=== PATIENT | female | born 1940 | race Caucasian/White ===

== ENCOUNTER 2022-07-03 19:20 | Inpatient (IN) | payer MEDICARE, SELFPAY ==
[2022-07-03 20:27] VITALS: BMI 28.8
[2022-07-03 20:53] VITALS: BP 152/68; PULSE 68; RESP 16; TEMP 36.6; O2SAT 96
[2022-07-03 22:03] VITALS: PULSE 69
[2022-07-03] MEDS: hydrALAZINE 25 MG Tablet PO (22:03)
[2022-07-03] MEDS: Metoprolol Tartrate 50 MG Tablet PO (22:03)
[2022-07-03] MEDS: Acetaminophen 500 MG Tablet 1000 MG PO (22:04)
[2022-07-03] MEDS: Senna/Docusate Sodium 1 Tablet 2 TABLET PO (22:04)
[2022-07-03] MEDS: Menthol/Lanolin/Calamine/Znox 113 GM Tube 1 APPLIC TOPICAL (22:17)
[2022-07-03 22:30] LABS: Bedside Glucose 236 mg/dL (74-106)
[2022-07-03 23:18] VITALS: PULSE 68; RESP 16; O2SAT 99
[2022-07-04] VITALS (8 sets, daily range): BP systolic 148–154; BP diastolic 49–58; PULSE 56–64; RESP 15; TEMP 36.1–36.8; O2SAT 90–98
[2022-07-04 05:59] LABS: ALB/GLOB Ratio 0.5 RATIO (0.9-2.4); AST(SGOT) 19 U/L (15-37); Alanine Aminotransfer ALT/SGPT 15 U/L (13-56); Albumin, Serum 1.9 g/dL (3.2-5.0); Alkaline Phosphatase 104 U/L (45-117); Anion Gap 8 (5-15); BUN 27 mg/dL (7-18); BUN/Creat Ratio 29.8 RATIO (10-20); Calcium,Total 8.8 mg/dL (8.5-10.1); Chloride 101 mmol/L (98-107); Creatinine, Serum 0.91 mg/dL (0.55-1.02); EST Glomerular Filtration Rate 63 mL/min (>60); Est Glom Filt Rate - Afr Amer 77 mL/min (>60); Estimated Creatinine Clearance 45.39 ml/min; Globulin 4.1 g/dL (2.2-4.2); Glucose 210 mg/dL (74-106); Magnesium 2.4 mg/dL (1.6-2.6); Phosphorus 3.3 mg/dL (2.5-4.9); Potassium 3.9 mmol/L (3.5-5.1); Sodium Level 139 mmol/L (136-145)
[2022-07-04] MEDS: Acetaminophen 500 MG Tablet 1000 MG PO ×3 (06:08→21:26)
[2022-07-04] MEDS: Levothyroxine 100 MCG Tablet PO (06:08)
[2022-07-04] MEDS: hydrALAZINE 25 MG Tablet PO ×3 (06:09→21:28)
[2022-07-04] MEDS: Metoprolol Tartrate 50 MG Tablet PO ×3 (06:09→21:28)
[2022-07-04] MEDS: Carbidopa/Levodopa 25/100 Tablet PO ×3 (06:10→17:03)
[2022-07-04 06:35] LABS: Bedside Glucose 211 mg/dL (74-106)
[2022-07-04] MEDS: Memantine Hydrochloride 5 MG Tablet PO (08:22)
[2022-07-04] MEDS: Senna/Docusate Sodium 1 Tablet 2 TABLET PO (08:22)
[2022-07-04] MEDS: NYSTATIN 500,000 UNIT/5 ML UDC 500000 UNIT PO ×4 (08:23→21:27)
[2022-07-04] MEDS: amLODIPine 5 MG Tablet PO (08:23)
[2022-07-04] MEDS: LINAGLIPTIN 5 MG TABLET PO (08:23)
[2022-07-04] MEDS: Menthol/Lanolin/Calamine/Znox 113 GM Tube 1 APPLIC TOPICAL ×2 (08:23→21:28)
[2022-07-04] MEDS: Calcium Carb/Vitamin D 1 TABLET Tablet 2 TABLET PO ×2 (08:23→17:03)
[2022-07-04] MEDS: Cholecalciferol (VIT D3) 25 MCG TABLET (1,000 UNITS) PO (08:23)
[2022-07-04] MEDS: Losartan Potassium 50 MG Tablet PO (08:23)
[2022-07-04 11:30] LABS: Bedside Glucose 326 mg/dL (74-106)
--- NOTE | 2022-07-04 12:21 | NURSING ---
1100-pt awoke for med. when asked if needed to use bathroom pt said yes. up to bsc x2 assist. pt incont of urine. another med soft stool to commode but did not void. back to chair and bladder scan done for <200. therapy in and standing on lt side of pt by window and talking with but pt with gaze turned to rt side. does not turn toward therapist until directed. down to therapy room for activity
--- NOTE | 2022-07-04 13:23 | HP.PCM_ITS ---
[facility] Date of Admission: 07/03/22 Date of Service: 07/04/22 Chief Complaint: Debility due to acute on chronic SDH requiring craniotomy on 06/15/[address] Lucila Hill at [facility] to evacuate the hematoma. [facility] Narrative NADEGE HINDS, is a 81 YO F with a PMH of PD, DM, dementia, HTN, hypothyroidism, chronic subdural hematoma, osteoporosis (she is on Fosamax 70 mg weekly) and recent COVID pneumonia (April 2022) who presented to [facility] on 06/24/22 from [facility] with complaint of increasing difficulty with ambulation and progressive left-sided weakness. CAT scan of the head showed an increase in the size of the subdural hematoma with an 8 mm midline shift. She was transported to [facility] for neurosurgical evaluation. She was taken for craniotomy on 06/25 to evacuate the hematoma. Post operatively she had PAF. She was placed on Metoprolol for rate control. She was diagnosed with BL unsta geable decubitus ulcers of both heels and moderate Malnutrition while at [facility]. She was seen by ST and is on a pureed diet with nectar thick liquids for dysphagia. PT/OT recommended acute rehab following DC from [facility]. She was transferred to the acute inpt rehab unit at [facility] on 07/03/22 for 3 hours of therapy daily to restore function at or near her level prior to the craniotomy. HGB at [facility] was 8.7. Drugs discontinued at [facility] were metoprolol succinate 25 mg daily, Nuplazid 34 mg daily, Seroquel 25 mg, Jardiance and Effexor Exar 150 mg daily. she lives with her dtr and has help available per the notes from . All paperwork sent with the patient from [facility] was personally reviewed. All lab from this AM was personally reviewed. The BUN is elevated at 27 and the creatinine is 0.91. Apparently at [facility] the creatinine was 0.68 from review of the records. Fasting blood sugar today was 210. The blood sugar at lunch was 326. She was transferred to us on No insulin and only Januvia for blood sugar control. I reviewed the endocrinology consult from [facility] a nd the disposal man recommended glargine once daily with mealtime insulin scheduled and a sliding scale. LFTs are unremarkable. Serum albumin is markedly decreased at 1.9. Medication list was reviewed. She is afebrile. Heart rate is in the 50s and 60s. Systolic blood pressure is mildly elevated in the 150s but the diastolic is within goal. Is maintaining appropriate oxygen saturation on room air. She ate 75 to 100% of her breakfast today. I got the opportunity to talk with her son and dtr-in-law whom she now lives with. She was until recently living with her dtr Ayala in [place]. Ayala has mental/emotional problems and was not taking good care of her mother. She apparently had many falls and Ayala would often sleep most of the day and not feed her mother. She never left the house and family was not allowed to visit. She had a marked change in her mental status and behavior in the past 2 weeks. she became incontinent and this is new for her. She would often start off into space. She was not using her L arm. Cognition declined. [facility] Medical History Dementia Diabetes mellitus type 2, insulin dependent Hypertension Hypothyroidism Parkinson's disease Allergy/AdvReac Type Severity Reaction Status Date / Time No Known Allergies Allergy Verified 07/03/22 20:54 Surgical History History of appendectomy History of right cataract extraction S/P hysterectomy Status post craniotomy Social History (Updated 07/04/22 @ 14:[address] 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 Smoking Status: Never smoker alcohol intake: never substance use type: does not use ROS ROS Narrative History is limited due to dementia. She was oriented to self and could tell me that she was 81. She also told me it was June and this is 2021. She knows she is in a hospital but, she does not know which hospital. She told me she fell down the steps and then had to have surgery on her head. She tells me that she loses her balance easily and that she ambulates with a walker. She has had some falls but, can not tell me how often she falls. She also told me that she has 5 children and they all live at home with her. She tells me that she lives with her dtr Ayala at another time. Constitutional Constitutional: Reports fatigue; Denies anorexia or headache(s) Eyes Eyes: Denies blurry vision or eye pain ENT HEENT: Denies abnormal hearing, dysphagia or sore throat Cardiovascular Cardiovascular: Denies chest pain, dyspnea on exertion, edema, palpitations or paroxysmal nocturnal dyspnea Respiratory/Chest Respiratory/Chest: Denies cough, shortness of breath at rest or wheezing Gastrointestinal Gastrointestinal: Denies abdominal pain, constipation, diarrhea, dyspepsia, nausea or vomiting Genitourinary Genitourinary: Reports other Details: She told me that she wears Depends at home but, also says she has no urinary or fecal incontinence. I asked why she wears Depends and she told me in case I have an accident. She had a PurWick catheter while at [facility]. ; Denies dysuria Musculoskeletal Musculoskeletal: Reports difficulty walking and tremors; Denies joint pain or neck pain Neurologic Neurologic: Reports abnormal gait and confusion; Denies headache(s) or seizures Psychiatric Psychiatric: Denies anxiety or depression Endocrine Endocrinology: Denies change in body appearance Vital Signs Vital Signs Vital Signs: 07/03/22 20:53 07/03/22 22:03 07/03/22 22:03 Temperature 97.8 F Temperature Source Temporal Pulse Rate 68 69 69 Respiratory Rate 16 Respiratory Effort Respiratory Depth Respiratory Pattern Blood Pressure 152/68 H Blood Pressure Mean 96 Blood Pressure Source Monitor Blood Pressure Position Semi-Fowlers Blood Pressure Location Right Arm Pulse Ox 96 Oxygen Delivery Method Room Air 07/03/22 23:18 07/04/22 06:09 07/04/22 06:09 Temperature Temperature Source Pulse Rate 68 56 L 56 L Respiratory Rate 16 Respiratory Effort Normal Non-Labored Respiratory Depth Normal Respiratory Pattern Normal Blood Pressure 154/58 H Blood Pressure Mean Blood Pressure Source Blood Pressure Position Blood Pressure Location Pulse Ox Oxygen Delivery Method Room Air 07/04/22 07:41 07/04/22 09:37 Temperature 97.0 F L Temperature Source Oral Pulse Rate 56 L Respiratory Rate 15 Respiratory Effort Normal Non-Labored Respiratory Depth Normal Respiratory Pattern Normal Blood Pressure 154/58 H Blood Pressure Mean 90 Blood Pressure Source Monitor Blood Pressure Position Semi-Fowlers Blood Pressure Location Right Arm Pulse Ox 94 Oxygen Delivery Method Room Air Room Air Weight Weight: 179 lb 0.246 oz Body Mass Index (BMI) 28.8 Physical Exam Narrative She was sleeping when I entered the room but easily aroused when I called her name. Const alert and no apparent distress Constitutional Narrative: She did not appear to be in any distress. She was lying on her R side in the bed. General Appearance: cooperative and well developed HEENT normocephalic HEENT Narrative: She has an incision from the craniotomy and it is intact with no dehiscence, no erythema and no DC. VERY dry MM Head and Scalp: other Other Details: She has swelling of both eyes and the periorbital area BL. The pupils are both reactive to light. The R pupil is deformed due to cataract extraction. Nose: no nasal discharge Mouth: dry mucous membranes and No malodorous breath Eyes EOMs intact bilaterally, conjunctivae normal and no scleral icterus Neck supple and No nodes General: normal visual inspection and trachea midline Chest Chest: symmetrical chest wall rise Cardio regular rhythm, S1 normal heart sound, S2 normal heart sound, no murmurs, no rub and no gallops Cardio Narrative: She is bradycardic GI normal to inspection, nondistended, normoactive bowel sounds, soft to palpation and non-tender GI Narrative: No guarding with palpation Results Lab / Micro Data Result Diagrams: 07/04/22 05:24 07/04/22 05:24 Labs: Laboratory Results - last 24 hr 07/03/22 22:09: POC Glucose 236 H 07/04/22 05:24: Sodium 139, Potassium 3.9, Chloride 101, Carbon Dioxide 30.0, Anion Gap 8, BUN 27 H, Creatinine 0.91, Estim Creat Clear Calc 45.39, Est GFR (MDRD) Af Amer 77, Est GFR (MDRD) Non-Af 63, BUN/Creatinine Ratio 29.8 H, Glucose 210 H, Calcium 8.8, Phosphorus 3.3, Magnesium 2.4, Total Bilirubin 0.30, AST 19, ALT 15, Alkaline Phosphatase 104, Total Protein 6.0 L, Albumin 1.9 L, Globulin 4.1, Albumin/Globulin Ratio 0.5 L 07/04/22 06:16: POC Glucose 211 H 07/04/22 11:09: POC Glucose 326 H Assessment & Plan Assessment/Plan (1) Debility: (2) Acute on chronic intracranial subdural hematoma: (3) Status post craniotomy: (4) Dementia: (5) Parkinson's disease: (6) Hypothyroidism: (7) Diabetes mellitus type 2, insulin dependent: (8) Atrial fibrillation: (9) Hypertension: (10) Protein-calorie malnutrition, moderate: PLAN: Plan PLAN PT for gait stability OT for ADL's ST for evaluation Analgesics as needed Bowel protocol Fall precautions Assess for Anxiety/Depression GI prophylaxis - not necessary at this time. She has no GI complaints and no hx of PUD that her family knows about. DVT prophylaxis with Lilia and DORIE child Follow up with PCP and Following DC from [facility] Rehab AM lab including CMP, CBC, Mag and Phos - all personally reviewed Check a CBC with diff now. Start Glargine 10 units at HS Lispro 4 units TID AC SSI TID with meals (low/me scale) Continue accuchecks AC and HS. Straight cath for postvoid residual greater than 200 cc. Check a UA today and obtain the urine by straight cath. Unit Exclusion This patient is an acute care inpatient being housed in the excluded unit because of capacity issues related to the disaster or emergency.: Yes Charges/Coding Visit Charges Inpatient E&M: 73377 Init Hosp L3
[2022-07-04 14:22] LABS: Absolute Lymphocyte Count 1.91 X10^3/uL (0.83-4.51); Absolute Neutrophil Count 6.6 X10^3/uL (2.0-7.7); Basophil# 0.04 X10^3/uL; Basophil% 0.4 % (0-1); Eosinophil# 0.07 X10^3/uL; Eosinophils% 0.7 % (0-5); Hematocrit 34.3 % (37-47); Hemoglobin 10.9 g/dL (12.0-15.0); Lymphocyte # 1.91 X10^3/ul (0.83-4.51); Lymphocyte % 18.7 % (19-41); Mean Corp Hgb Conc 31.8 g/dL (32-36); Mean Corpuscular Hgb 28.2 pg (27.0-32.0); Mean Corpuscular Volume 88.9 fL (81-99); Mean Platelet Vol. 12.3 fl (6.2-12.0); Monocyte# 1.56 X10^3/uL; Monocyte% 15.3 % (0-10); NRBC Flagged by Analyzer 0 % (0-5); Neutrophil # 6.56 X10^3/uL (2.7-7.7); Neutrophil % 64.1 % (47-70); POSITIVE DIFFERENTIAL YES; Platelet Count 225 K/mm3 (150-450); RBC Distribution Width CV 15.2 % (11.6-14.6); RBC Distribution Width SD 49.2 fl (35.1-43.9); Red Blood Count 3.86 M/mm3 (4.2-5.4); White Blood Count 10.2 K/mm3 (4.4-11.0)
[2022-07-04 14:24] LABS: Differential Indicated SCAN CRITERIA MET
[2022-07-04] MEDS: Nystatin Powder 15gm Bottle 1 APPLIC TOPICAL ×2 (14:31→21:27)
[2022-07-04 14:48] LABS: Differential Comment SCANNED
--- NOTE | 2022-07-04 15:09 | NURSING ---
pt with xl incont of urine. pt attends changed and skin care completed. straight cathed x1 for urine speciman as ordered. pt diego fair. painful to labia as red and excoriated from having external catheter up at [facility] per dr. brunner. pt repositioned to other side for healing
[2022-07-04 16:25] LABS: T4 Free Direct 1.41 ng/dL (0.76-1.46); Thyroid Stim Hormone (TSH) 0.32 uIU/mL (0.358-3.74)
[2022-07-04 16:31] LABS: Bedside Glucose 328 mg/dL (74-106)
[2022-07-04] MEDS: Insulin Lispro 100 UNIT/ML INSULN.PEN SC ×2 (17:03→17:05)
--- NOTE | 2022-07-04 17:42 | NURSING ---
fAMILY HERE FOR PT AND HAPPY TO SEE HOW PT IS DOING. PT SAT UPRIGHT IN BED AND FEEDING SELF AND DOING WELL. FAMILY ASSISTING. PT AT TIMES SLIGHTLY SOB FROM NOT RESTING INBETWEEN BITES. DOES BETTER WITH SOUPS AND THINNER PUREED STUFF D/T NOT HAVING TO WORK HARD CHEWING.
--- NOTE | 2022-07-04 18:19 | NURSING ---
PT ATTENDS DRY BUT UP TO BSC AND TRIED TO TOILET. UNABLE TO VOID BUT HAD ANOTHER SMEAR OF LOOSE BM. PT BACK TO BED AND BLADDER SCANNED FOR 121. EMMIE WELL WITH 2 ASSIST. PA ALARM ON FOR SAFTEY
[2022-07-04 18:45] LABS: Bacteria 0 SEEN /hpf (None Seen); Mucous, Urine 0 SEEN /hpf (<or=2+); Red Blood Cells-Urine 0 SEEN /hpf (0-5); Squamous Epithelial Cells - UA 0 SEEN /hpf (5-10); White Blood Cells 0 SEEN /hpf (0-5)
[2022-07-04 18:55] LABS: Color, Urine Yellow (Yellow); Glucose, Dipstick 1000 mg/dl (Normal); Ketone-Dipstick Negative (Negative); Leukocyte Esterase-Dipstick Negative /ul (Negative); Nitrite-Dipstick Negative (Negative); Occult Blood-Urine 10 /ul (Negative); Protein-Dipstick 30 mg/dl (Negative); Specific Gravity, Urine 1.005 (1.002-1.030); Urine Bilirubin Dipstick Negative (Negative); Urine Clarity Clear (Clear); Urine Urobilinogen Normal (Normal); Urine pH 6.5 (5.0 - 8.0)
[2022-07-04] MEDS: Gabapentin 300 MG Capsule PO (21:13)
[2022-07-04] MEDS: Atorvastatin Calcium 40 MG Tablet PO (21:28)
[2022-07-04] MEDS: Insulin Glargine-YFGN 100 UNIT/ML Pen 10 UNIT SC (21:34)
[2022-07-04 22:11] LABS: Bedside Glucose 297 mg/dL (74-106)
[2022-07-05] VITALS (11 sets, daily range): BP systolic 114–143; BP diastolic 43–69; PULSE 51–80; RESP 16–18; TEMP 36.7–36.8; O2SAT 91–98
--- NOTE | 2022-07-05 03:50 | NURSING ---
Pt checked for incontinence and denied toileting needs at this time. Repositioned to left side with pillow to offload coccyx and bilat feet elevated on pillow while in bed.
[2022-07-05] MEDS: hydrALAZINE 25 MG Tablet PO ×3 (05:10→22:13)
[2022-07-05] MEDS: Metoprolol Tartrate 50 MG Tablet PO ×2 (05:17→14:28)
[2022-07-05] MEDS: Levothyroxine 100 MCG Tablet PO (05:17)
[2022-07-05] MEDS: Acetaminophen 500 MG Tablet 1000 MG PO ×3 (05:17→22:14)
[2022-07-05 06:36] LABS: Bedside Glucose 204 mg/dL (74-106)
[2022-07-05] MEDS: Carbidopa/Levodopa 25/100 Tablet PO ×3 (06:48→17:20)
[2022-07-05] MEDS: amLODIPine 5 MG Tablet PO (07:59)
[2022-07-05] MEDS: Cholecalciferol (VIT D3) 25 MCG TABLET (1,000 UNITS) PO (07:59)
[2022-07-05] MEDS: Nystatin Powder 15gm Bottle 1 APPLIC TOPICAL ×2 (07:59→22:15)
[2022-07-05] MEDS: Memantine Hydrochloride 5 MG Tablet PO (07:59)
[2022-07-05] MEDS: Calcium Carb/Vitamin D 1 TABLET Tablet 2 TABLET PO ×2 (07:59→17:20)
[2022-07-05] MEDS: LINAGLIPTIN 5 MG TABLET PO (07:59)
[2022-07-05] MEDS: NYSTATIN 500,000 UNIT/5 ML UDC 500000 UNIT PO ×4 (07:59→22:14)
[2022-07-05] MEDS: Losartan Potassium 50 MG Tablet PO (07:59)
[2022-07-05] MEDS: Insulin Lispro 100 UNIT/ML INSULN.PEN SC ×4 (08:00→17:20)
[2022-07-05] MEDS: Gabapentin 300 MG Capsule PO (08:03)
[2022-07-05] MEDS: Menthol/Lanolin/Calamine/Znox 113 GM Tube 1 APPLIC TOPICAL ×2 (08:10→22:14)
--- NOTE | 2022-07-05 09:35 | REHABEVAL_ITS ---
Admission Information Primary Diagnosis:: Debility secondary to acute on chronic subdural hematoma requiring craniotomy to evacuate the clot. Status Changes from Prescreening?: No changes Identified Actual Problem List:: Falls, Skin Intergrity, Pain, ALteration in Cmfrt, Cognitve Impr/Memory Loss, Bladder Incontinence, Bowel, Incontinence, Alteration in Sleep, Mobility Impaired, Self Care Deficit, Diabetes, Hyperglycemia, Fluid Change-Dehydration and Alteration-Leisure Activ. Potential Problem List:: DVT, Bleeding, Infection, UTI, Aspiration, Falls, Skin Integrity and Depression Risk of Complications DVT: DORIE Hose and Sequential Compression Device Bleeding: Monitor Lab Values, Nursing to Teach Precautions for anti-coagulation therapy., Wound, if applicable, to be assessed every shift. and Stroke patients assessed for lethargy or change in status. Infection: Clinical Staff to Monitor for S/S of infection: and S/S of infection include fever, redness, warmth, etc. Urinary Tract Infection: Monitor for frequency, burning, discomfort, or incontinence. and Nursing will obtain urine sample for urinalysis and C&S when ordered. Aspiration: Clinical staff will monitor for coughing, drooling, congestion., Speech will evaluate swallowing and dsyphasia. and Nursing will monitor patient swallowing during meals. Falls: Patient will be evaluated for Fall Precautions and Patient will be placed on Fall Precautions as indicated per protocol. Skin Breakdown: Nursing will assess skin daily using assessment tool. and Nursing will place on Skin Breakdown Precautions as indicated. Pain: Clinical staff will assess patient's pain level per protocol., Medications will be given, if needed, and the pain level reassessed. and Other methods: Massage, distraction, decrease stimulus, etc. used PRN. Plan of Care Patient requires physician specializing in physical medicine and rehab oversight to provide close medical supervision of rehab issues including: Pain Management, Sleep Problems, Bowel and Bladder, Medical and co-morbidity Management, DVT prophylaxis, Rehabilitation Leadership and Coordination of treatment team Patient needs Physical Therapy: For a minimum of 1 hour and At least 5 out of 7 days Patient needs Physical Therapy to improve:: Mobility, Strengthening, Transfers, Stretching, ROM, Endurance, Stairs, Gait and Balance Patient needs Occupational Therapy: For a minimum of 1 hour and At least 5 out of 7 days Patient needs Occupational Therapy to improve ADL's incl.: Eating, Grooming, Bathing, Dressing, Toileting, Toilet transfers, Community Reintegration, Higher functioning activities, Household tasks, Adaptive Equipment, Splinting and Other activities as determined Patient requires speech therapy: For a minimum of 1 hour and At least 5 out of 7 days Patient requires speech therapy for: Swallowing, Cognition, Language Skills and Compensatory Strategies Patient requires 24/ Rehabilitation Nursing for: Pain Issues, Identifying and preventing risk factors, Monitoring and reporting current medical conditions, Assisting with ambulation, transfer, and all ADL's, Teaching patients about disease process and medications, Family teaching, Providing safe environment, Bowel and Bladder Issues, Skin integrity and Medication Management Patient needs Track Repair Person/ Case Management for: Discharge Planning, Arranging Home Equipment or Services and Family Interventions Patient needs Dietary and Nutrition Services for: Adequate Nutrition, Nutritional Supplements and Nutritional Education Goals Patient will remain: free from falls Patient will perform bed mobility at: MOD I level of assist. Patient will complete transfers from bed to chair at: - (Contact-guard assist) Patient will ambulate: 50 feet (At standby assist on various surfaces with a wheeled walker) Patient will complete upper body dressing at: - (Set up assist) Patient will complete lower body dressing at: - (Min assist with assistive equipment as needed) Patient will complete toileting at: - (Min assist) Patient will perform bathing at: MOD I level of assist. Patient will complete grooming at: MOD I level of assist. Patient will complete home management skills at: MOD I level of assist. Patient will achieve: - (1 curb step at min assist with wheeled walker) Patient will have pain level of: of 3 or less Patient's skin will: remain intact Patient will receive: adequate nutrition. Discharge Planning Pt Prognosis for Sig. Practical Improv. w/in Reasonable Time: Good Estimated Length of stay (days): 28 Anticipated D/C Destination: Home with Home Health (antoni be going home wo live with her son and dtr-in-law) Was Preadmission Assessment Accurate?: Yes
--- NOTE | 2022-07-05 09:44 | PCM.PROGNOTE ---
Subjective Subjective Afebrile VSS Maintaining appropriate oxygen saturation on RA Oral intake is good Intake and output are inaccurate secondary to urinary incontinence. She is having some post void residuals and is requiring periodic straight catheterization. Discussed with nursing - Nursing tells me that she is just staring today and not talking. I suspect this may be related to the 300 mg of Gabapentin she gets BID at bedtime and in the AM Reviewed the PT/OT/ST notes Medication list reviewed. there was a med error last night.......she got 300 mg of Gabapentin at HS and it is ordered daily so she got another 300 mg this morning. This is the likely cause of the staring today. Blood sugar record was reviewed. The at bedtime blood sugar was 297 and her fasting today is 204. She is getting 4 units scheduled + 2-3 units from SS. TSH was low at 0.32 but the free T4 was within normal limits at 1.41. UA had no WBC's but, had had glucosuria and protein. Spec grav was 1.005 ROS is negative with the exception of c/o headache. Objective Data Objective Data Vital Signs: Vital Signs Temp Pulse Resp BP Pulse Ox O2 Del Method 98.2 F 80 16 122/62 H 96 Room Air 07/05/22 08:32 07/05/22 08:32 07/05/22 08:32 07/05/22 08:32 07/05/22 08:32 07/05/22 08:32 Oxygen Delivery Method Room Air Weight: 179 lb 0.246 oz Body Mass Index (BMI) 28.8 Intake & Output: Intake and Output for Last 24 Hours 07/03/22 07/04/22 07/05/22 23:59 23:59 23:59 Intake Total 60 / 60 1940 / 1940 300 / 300 Output Total 200 / 200 450 / 450 800 / 800 Balance -140 / -140 1490 / 1490 -500 / -500 Lab / Micro Data Result Diagrams: 07/04/22 05:24 07/06/22 05:46 Labs: Laboratory Results - last 24 hr 07/04/22 05:24: WBC 10.2, RBC 3.86 L, Hgb 10.9 L, Hct 34.3 L, MCV 88.9, MCH 28.2, MCHC 31.8 L, RDW Std Deviation 49.2 H, RDW Coeff of Darius 15.2 H, Plt Count 225, MPV 12.3 H, Immature Gran % (Auto) 0.800, Neut % (Auto) 64.1, Lymph % (Auto) 18.7 L, [place] % (Auto) 15.3 H, Eos % (Auto) 0.7, Baso % (Auto) 0.4, Absolute Neuts (auto) 6.6, Absolute Lymphs (auto) 1.91, Nucleated RBC % 0, Differential Comment SCANNED 07/04/22 05:24: TSH 0.32 L, Free T4 1.41 07/04/22 11:09: POC Glucose 326 H 07/04/22 15:00: Urine Color Yellow, Urine Clarity Clear, Urine pH 6.5, Ur Specific [place] 1.005, Urine Protein 30 H, Urine Glucose (UA) 1000 H, Urine Ketones Negative, Urine Occult Blood 10 H, Urine Nitrite Negative, Urine Bilirubin Negative, Urine Urobilinogen Normal, Ur Leukocyte Esterase Negative, Urine RBC 0 SEEN, Urine WBC 0 SEEN, Ur Squamous Epith Cells 0 SEEN, Urine Bacteria 0 SEEN, Urine Mucus 0 SEEN 07/04/22 16:13: POC Glucose 328 H 07/04/22 21:34: POC Glucose 297 H 07/05/22 06:16: POC Glucose 204 H Physical Exam Const Constitutional Narrative: Very drowsy and confused. HEENT HEENT Narrative: The craniotomy incision is healing and there is no serge-incisional erythema, discharge or swelling. Eyes PERRL Eyes Narrative: She has some edema of the serge-orbital area on the left. The sclera is clear and there is no DC from the eye. She has no mattering of the eyelids. Neck supple Resp normal respiratory effort and clear to auscultation bilaterally Effort and Inspection: Negative for tachypneic, respiratory distress or uses accessory muscles Cardio regular rate, regular rhythm and no gallops GI normal to inspection, nondistended, normoactive bowel sounds, soft to palpation and non-tender GI Narrative: No guarding with palpation and no grimacing. Extremity General Extremity: Negative for edema Skin General Skin Exam: no breakdown Rashes: no rashes Neuro CN's II-XII intact bilaterally Neuro Narrative: Moving all extremities. Assessment & Plan Assessment/Plan (1) Debility: (2) Acute on chronic intracranial subdural hematoma: (3) Status post craniotomy: (4) Diabetes mellitus type 2, insulin dependent: (5) Parkinson's disease: (6) Atrial fibrillation: (7) Dementia: (8) Dehydration: PLAN: Plan 1. Increase the mealtime insulin to 6 units. Continue the SSI and the glargine. 2. Continue therapy......suspect she will not do well with Therapy today due to the altered LOC related to the Gabapentin. 3. DC Gabapentin 4. Not able to concentrate the urine due to chronic renal failure stage III. Having a large amount of glucosuria. Will give a 500 cc bolus of normal saline and then run normal saline at 75 cc/h. Check a BMP in the a.m. Charges/Coding Visit Charges Inpatient E&M: 31030 Subs Hosp L2
[2022-07-05] MEDS: FLU VACC QS2022-23(6MOS UP)/PF 60 MCG/0.5 ML SYRINGE IM (10:57)
[2022-07-05 11:25] LABS: Bedside Glucose 248 mg/dL (74-106)
[2022-07-05] MEDS: Insulin Lispro 100 UNIT/ML INSULN.PEN 6 UNIT SC ×2 (12:02→17:20)
[2022-07-05] MEDS: 0.9% Normal Saline 1,000 ML 75 ML IV (12:10)
[2022-07-05 16:30] LABS: Bedside Glucose 267 mg/dL (74-106)
[2022-07-05] MEDS: Senna/Docusate Sodium 1 Tablet 2 TABLET PO (22:13)
[2022-07-05] MEDS: Atorvastatin Calcium 40 MG Tablet PO (22:13)
[2022-07-05] MEDS: Insulin Glargine-YFGN 100 UNIT/ML Pen 10 UNIT SC (22:15)
[2022-07-05 22:46] LABS: Bedside Glucose 213 mg/dL (74-106)
[2022-07-06] VITALS (9 sets, daily range): BP systolic 150–187; BP diastolic 62–74; PULSE 58–60; RESP 16–20; TEMP 36.9–37.1; O2SAT 93–98
[2022-07-06] MEDS: 0.9% Normal Saline 1,000 ML 75 ML IV ×2 (01:03→14:54)
[2022-07-06] MEDS: Acetaminophen 500 MG Tablet 1000 MG PO ×3 (05:24→20:19)
[2022-07-06] MEDS: Levothyroxine 100 MCG Tablet PO (05:24)
[2022-07-06] MEDS: hydrALAZINE 25 MG Tablet PO ×3 (05:25→20:20)
[2022-07-06] MEDS: Metoprolol Tartrate 50 MG Tablet PO ×3 (05:25→20:19)
[2022-07-06 06:47] LABS: Anion Gap 6 (5-15); BUN 22 mg/dL (7-18); BUN/Creat Ratio 23.5 RATIO (10-20); Calcium,Total 9.8 mg/dL (8.5-10.1); Chloride 104 mmol/L (98-107); Creatinine, Serum 0.94 mg/dL (0.55-1.02); EST Glomerular Filtration Rate 61 mL/min (>60); Est Glom Filt Rate - Afr Amer 74 mL/min (>60); Estimated Creatinine Clearance 43.94 ml/min; Glucose 197 mg/dL (74-106); Potassium 4.1 mmol/L (3.5-5.1); Sodium Level 139 mmol/L (136-145)
[2022-07-06 07:30] LABS: Bedside Glucose 192 mg/dL (74-106)
[2022-07-06] MEDS: Losartan Potassium 50 MG Tablet PO (08:14)
[2022-07-06] MEDS: amLODIPine 5 MG Tablet PO (08:14)
[2022-07-06] MEDS: Carbidopa/Levodopa 25/100 Tablet PO ×3 (08:14→17:21)
[2022-07-06] MEDS: Memantine Hydrochloride 5 MG Tablet PO (08:14)
[2022-07-06] MEDS: Calcium Carb/Vitamin D 1 TABLET Tablet 2 TABLET PO ×2 (08:14→17:24)
[2022-07-06] MEDS: Insulin Lispro 100 UNIT/ML INSULN.PEN SC ×3 (08:14→17:21)
[2022-07-06] MEDS: Senna/Docusate Sodium 1 Tablet 2 TABLET PO ×2 (08:14→20:19)
[2022-07-06] MEDS: LINAGLIPTIN 5 MG TABLET PO (08:14)
[2022-07-06] MEDS: NYSTATIN 500,000 UNIT/5 ML UDC 500000 UNIT PO ×4 (08:14→20:19)
[2022-07-06] MEDS: Insulin Lispro 100 UNIT/ML INSULN.PEN 6 UNIT SC ×3 (08:15→17:21)
[2022-07-06] MEDS: Nystatin Powder 15gm Bottle 1 APPLIC TOPICAL ×2 (08:18→20:18)
[2022-07-06] MEDS: Menthol/Lanolin/Calamine/Znox 113 GM Tube 1 APPLIC TOPICAL ×2 (08:18→20:18)
[2022-07-06] MEDS: Cholecalciferol (VIT D3) 25 MCG TABLET (1,000 UNITS) PO (08:20)
--- NOTE | 2022-07-06 09:16 | PCM.PROGNOTE ---
Subjective Subjective Afebrile VSS Maintaining appropriate oxygen saturation on RA Oral intake is good Remains incontinent of urine. Discussed with nursing - more alert today. She was talking to the nurses last night about living in [place]. Reviewed the PT/OT/ST notes Medication list reviewed. Gabapentin was discontinued yesterday and she was started on IV fluids to hydrate. The BMP was personally reviewed. The BUN is 22 today, down from 27 yesterday and the creatinine is stable at 0.94. BUN/creatinine ratio is 23.5, down from 29.8. The blood sugar record was reviewed. Blood sugars are coming down but still not adequately controlled. The at bedtime blood sugar was 213 and the fasting today was 192. Mealtime insulin was increased to 6 units with meals yesterday but she did not get the first dose until noon. ROS is not obtainable due to confusion at present time Objective Data Objective Data Vital Signs: Vital Signs Temp Pulse Resp BP Pulse Ox O2 Del Method 98.1 F 58 L 18 150/67 H 96 Room Air 07/05/22 20:24 07/06/22 05:25 07/05/22 20:24 07/06/22 05:25 07/05/22 20:24 07/05/22 20:24 Oxygen Delivery Method Room Air Weight: 179 lb 0.246 oz Body Mass Index (BMI) 28.8 Intake & Output: Intake and Output for Last 24 Hours 07/04/22 07/05/22 07/06/22 23:59 23:59 23:59 Intake Total 1940 / 1940 1560 / 1560 1086.25 / 1086.25 Output Total 450 / 450 800 / 800 Balance 1490 / 1490 760 / 760 1086.25 / 1086.25 Lab / Micro Data Result Diagrams: 07/04/22 05:24 07/06/22 05:46 Labs: Laboratory Results - last 24 hr 07/05/22 11:07: POC Glucose 248 H 07/05/22 16:08: POC Glucose 267 H 07/05/22 22:12: POC Glucose 213 H 07/06/22 05:46: Sodium 139, Potassium 4.1, Chloride 104, Carbon Dioxide 29.0, Anion Gap 6, BUN 22 H, Creatinine 0.94, Estim Creat Clear Calc 43.94, Est GFR (MDRD) Af Amer 74, Est GFR (MDRD) Non-Af 61, BUN/Creatinine Ratio 23.5 H, Glucose 197 H, Calcium 9.8 07/06/22 07:11: POC Glucose 192 H Micro: Microbiology 07/04/22 15:00 Urine, Catheterized Urine Culture - Preliminary Culture exhibits no growth. Physical Exam Narrative She was sleeping when I entered the room but easily aroused when I called her name. Const no apparent distress Constitutional Narrative: She did not appear to be in any distress. She was sitting in the recliner at the bedside but asking to get back to bed because she was tired. She is sometimes cooperative and at other times not. Orientation / Consciousness: confused HEENT normocephalic Mouth: dry mucous membranes Eyes EOMs intact bilaterally, conjunctivae normal and no scleral icterus Neck nodes Resp clear to auscultation bilaterally Resp Narrative: Diminished in the bases due to poor inspiratory effort. No conversational dyspnea. Effort and Inspection: Negative for tachypneic, respiratory distress, labored or uses accessory muscles Cardio regular rhythm, S1 normal heart sound, S2 normal heart sound, no murmurs, no rub and no gallops Cardio Narrative: She is bradycardic GI normal to inspection, nondistended, normoactive bowel sounds, soft to palpation and non-tender GI Narrative: No guarding with palpation Extremity General Extremity: Negative for edema Skin General Skin Exam: no breakdown Rashes: no rashes Neuro CN's II-XII intact bilaterally Assessment & Plan Assessment/Plan (1) Debility: PLAN: Continue therapy. I am not certain she will be able to do therapy for 3 hours a day. Some of the drowsiness and confusion at this time may be due to medications but, she has underlying dementia......likely exacerbated by the SDH and the surgery. Will continue to observe over the weekend and re-evaluate on Sunday. (2) Acute on chronic intracranial subdural hematoma: (3) Status post craniotomy: (4) Dementia: (5) Parkinson's disease: (6) Hypothyroidism: (7) Diabetes mellitus type 2, insulin dependent: PLAN: Continue to adjust insulin as needed to keep all blood sugars less than 200 with no hypoglycemia. (8) Atrial fibrillation: (9) Hypertension: (10) Protein-calorie malnutrition, moderate: Charges/Coding Visit Charges Inpatient E&M: 03206 Subs Hosp L2
[2022-07-06] MEDS: oxyCODONE 5 MG Tablet PO ×2 (10:12→20:19)
[2022-07-06 11:40] LABS: Bedside Glucose 226 mg/dL (74-106)
--- NOTE | 2022-07-06 11:54 | NURSING ---
Waiting for return call from Bridget in Dr. Hill's office, request to cancel and reschedule the 07/11 appt d/t being in rehab.
--- NOTE | 2022-07-06 15:41 | CHAPLAIN ---
Type of Pastoral Visit _x__ Initial Visit ___ Follow-up Visit ___ On-call Visit ___ General Patient Visit ___ Spiritual Assessment ___ Family Conference ___ Bereavement ___ Rapid Response ___ Code Blue ___ Other (describe below) Pastoral Care Referral From _x__ Patient ___ Family ___ Nurse ___ Physician ___ Stone Unloader ___ Recycling Tech ___ Other (describe below) Sacrament/Intervention _x__ Active listening ___ Anointing ___ Worship ___ Bereavement ___ Communion ___ Rebecca exploration ___ ___ Life review _x__ Prayer ___ Reconciliation ___ Sacrament of Sick _x__ Supportive presence ___ Wedding ___ Other (describe below) Pastoral Comments patient is slow to respond to questions but does answer appropriately and with clarity; pt states I think I'm doing a little bit better but I'm not sure; pt asks for a hug and a prayer; offer support through words of encouragement, reminders of past help in difficulties, presence, and prayer
--- NOTE | 2022-07-06 15:43 | CASEMGMT ---
Social Work IDT met with patient for care plan meeting. Family unable to be present but requested phone call with updates after meeting. Pt was drowsy and unable to be alert for meeting. SW contacted son to provide updates from all disciplines. Son very appreciative of care given to pt and updates. Son acknowledges pt may be difficult to get to participate in therapy. GO explained pt is very fatigued and Dr hoping pt to become more alert from discontinuation of medication and start of IV fluids, allowing time for brain to rest. Educated to pt needing to participate in 3 hours of therapy daily for continuation of stay. If not, pt can be transferred home or to a lower level of care. Son's goals is for pt to be able to return home with him and . GO acknowledged. Educated to [facility] insurance with [employer] 07/10 and continued stay is not guaranteed with each review. SW offered to provide SNF list for son to start researching, etc.. Son expressed understanding and denied SNF list currently. SW agreed. Will continue to follow. Naty Pearl, MIDDLE SCHOOL SCIENCE TEACHER TELESALES REPRESENTATIVE
[2022-07-06 17:30] LABS: Bedside Glucose 191 mg/dL (74-106)
[2022-07-06] MEDS: Atorvastatin Calcium 40 MG Tablet PO (20:19)
[2022-07-06] MEDS: Insulin Glargine-YFGN 100 UNIT/ML Pen 10 UNIT SC (22:49)
[2022-07-06 23:20] LABS: Bedside Glucose 142 mg/dL (74-106)
[2022-07-07] VITALS (10 sets, daily range): BP systolic 120–186; BP diastolic 53–60; PULSE 53–83; RESP 16–20; TEMP 36.3–37.4; O2SAT 96–99
[2022-07-07] MEDS: 0.9% Normal Saline 1,000 ML 75 ML IV ×2 (05:39→19:36)
[2022-07-07] MEDS: hydrALAZINE 25 MG Tablet PO ×3 (06:17→21:51)
[2022-07-07] MEDS: Acetaminophen 500 MG Tablet 1000 MG PO ×3 (06:17→21:41)
[2022-07-07] MEDS: Levothyroxine 100 MCG Tablet PO (06:17)
[2022-07-07] MEDS: Metoprolol Tartrate 50 MG Tablet PO ×3 (06:18→21:50)
[2022-07-07 07:16] LABS: Bedside Glucose 178 mg/dL (74-106)
[2022-07-07] MEDS: Insulin Lispro 100 UNIT/ML INSULN.PEN SC ×2 (08:04→11:13)
[2022-07-07] MEDS: Insulin Lispro 100 UNIT/ML INSULN.PEN 6 UNIT SC ×3 (08:04→17:32)
[2022-07-07] MEDS: Calcium Carb/Vitamin D 1 TABLET Tablet 2 TABLET PO ×2 (08:05→17:33)
[2022-07-07] MEDS: amLODIPine 5 MG Tablet PO (08:05)
[2022-07-07] MEDS: Senna/Docusate Sodium 1 Tablet 2 TABLET PO ×2 (08:05→21:41)
[2022-07-07] MEDS: Memantine Hydrochloride 5 MG Tablet PO (08:05)
[2022-07-07] MEDS: LINAGLIPTIN 5 MG TABLET PO (08:05)
[2022-07-07] MEDS: Carbidopa/Levodopa 25/100 Tablet PO ×3 (08:05→17:33)
[2022-07-07] MEDS: Losartan Potassium 50 MG Tablet PO (08:05)
[2022-07-07] MEDS: Cholecalciferol (VIT D3) 25 MCG TABLET (1,000 UNITS) PO (08:05)
[2022-07-07] MEDS: NYSTATIN 500,000 UNIT/5 ML UDC 500000 UNIT PO ×3 (08:06→21:41)
[2022-07-07] MEDS: Menthol/Lanolin/Calamine/Znox 113 GM Tube 1 APPLIC TOPICAL ×2 (08:08→21:43)
[2022-07-07] MEDS: Nystatin Powder 15gm Bottle 1 APPLIC TOPICAL ×2 (08:08→23:22)
[2022-07-07 11:35] LABS: Bedside Glucose 164 mg/dL (74-106)
[2022-07-07 16:16] LABS: Bedside Glucose 146 mg/dL (74-106)
--- NOTE | 2022-07-07 17:03 | CT_ITS ---
We are attempting to reach an attending provider to discuss findings. An addendum with communication details will be sent when the communication is complete. STUDY: CT BRAIN WITHOUT CONTRAST REASON FOR EXAM: Female, 81 years old. fall, hit head TECHNIQUE: Transaxial CT imaging of the brain was performed without administration of intravenous contrast material. Individualized dose optimization techniques were used for this CT. COMPARISON: None FINDINGS: There is a right craniotomy/craniectomy. Below the craniotomy flap, there is air. There is no underlying fracture. Soft tissue swelling of the scalp- left forehead. There is moderate cerebral atrophy with widening of the extra-axial spaces and ventricular dilatation. There are areas of decreased attenuation within the white matter tracts of the supratentorial brain, consistent with microvascular disease changes. Normal basal ganglia and thalami. Normal brainstem. Normal cerebellum. There is a right cerebral subdural hematoma measuring 26 mm in greatest width. 3.1 mm right to left midline shift. There are no findings of an acute ischemic infarction. There are calcifications noted in the distal vertebral arteries. There are calcifications noted in the cavernous carotid arteries. This is consistent for atherosclerotic disease. Normal visualized paranasal sinuses. CT/Brain/Head without Contrast IMPRESSION: There is no underlying fracture. Soft tissue swelling of the scalp- left forehead. There is a right cerebral subdural hematoma measuring 26 mm in greatest width. 3.1 mm right to left midline shift. Critical finding called and case discussed. Electronically Signed: Remy Escamilla MD at 17:49 EST ,
--- NOTE | 2022-07-07 19:54 | NURSING ---
1700-THIS RN AND DR INFANTE IN TO PATIENTS ROOM AFTER HEARING LOUD NOISE. PATIENT FOUND LAYING ON FLOOR, FACE DOWN. PT STATES SHE HIT HER HEAD WHEN FALLING. PA ON AT TIME OF FALL, PT HAD BEEN IN RECLINER. STATES SHE WAS TRYING TO GET BACK TO BED. PT A/OX2, IMPULSIVE DURING SHIFT. PT ASSISTED BACK TO BED WITH 2 ASSIST FROM FLOOR. LARGE HEMATOMA TO FOREHEAD NOTED. ICE APPLIED. SMALL FIRM NODULE NOTED TO LEFT CHIN WELL. MD ORDERED CT OF HEAD. PT REMAINS ALERT, EASILY RESPONSIVE. ALERT TO SELF/PLACE. FAMILY ARRIVED AT BEDSIDE SHORTLY AFTER EVENT--UPDATED. MD STATES WILL CALL AND UPDATE SON OF CT RESULTS THIS EVENING. PT MADE COMPLETE BEDREST; ICE MAINTAINED TO FOREHEAD. STAFF KEPT AT BEDSIDE PER MD REQUEST FOR SAFETY CONCERN.
--- NOTE | 2022-07-07 20:05 | PCM.PROGNOTE ---
Subjective Subjective Afebrile VSS -blood pressure is elevated when she is agitated. Heart rate is within normal limits. Maintaining appropriate oxygen saturation on RA Discussed with nursing -patient is somewhat agitated and she is constanttly ringing the simon they gave her or yelling out help me. She is confused and demanding to get up. Reviewed the PT/OT/ST notes Medication list reviewed. she was up in the chair with an alarm on her when I heard a thud from her room when I was in the adjoining room. I ran to her room and she was on the floor having launched herself onto the floor. With the aid of nursing she was put back in bed and examined. She has a hematoma over the Left eye and a smaller hematoma of the left mandible. She is complaining of a POPE when I ask her but, this has been a persistent complaint since admission. The craniotomy incision is intact. There are no other injuries to her head. Pupils are equal, round and reactive to light. She was able to follow my finger in a horizontal fashion. Lungs-poor inspiratory effort but clear to auscultation Heart-regular rate and rhythm Abdomen-soft, nondistended, nontender to palpation No peripheral edema Impression 1. S/P fall out of a chair with new hematomas over the Left eye and the left mandible. STAT NC CT brain ordered. Objective Data Objective Data Vital Signs: Vital Signs Temp Pulse Resp BP Pulse Ox O2 Del Method 98.5 F 79 20 H 186/57 H 99 Room Air 07/07/22 17:10 07/07/22 17:10 07/07/22 17:10 07/07/22 17:10 07/07/22 17:10 07/07/22 17:10 Oxygen Delivery Method Room Air Weight: 179 lb 0.246 oz Body Mass Index (BMI) 28.8 Intake & Output: Intake and Output for Last 24 Hours 07/05/22 07/06/22 07/07/22 23:59 23:59 23:59 Intake Total 1560 / 1560 2326.25 / 2326.25 2660 / 2660 Output Total 800 / 800 100 / 100 Balance 760 / 760 2226.25 / 2226.25 2660 / 2660 Lab / Micro Data Result Diagrams: 07/04/22 05:24 07/06/22 05:46 Labs: Laboratory Results - last 24 hr 07/06/22 22:42: POC Glucose 142 H 07/07/22 06:56: POC Glucose 178 H 07/07/22 11:10: POC Glucose 164 H 07/07/22 15:58: POC Glucose 146 H Micro: Microbiology 07/04/22 15:00 Urine, Catheterized Urine Culture - Final Culture exhibits no growth. Radiography Diagnostic Testing: Radiology Impression Brain CT 07/07/22 17:03 IMPRESSION: There is no underlying fracture. Soft tissue swelling of the scalp- left forehead. There is a right cerebral subdural hematoma measuring 26 mm in greatest width. 3.1 mm right to left midline shift. Critical finding called and case discussed. Electronically Signed: Remy Escamilla MD at 17:49 EST , ADDENDUM: 07/07/22 1809 IMPRESSION: There is no underlying fracture. Soft tissue swelling of the scalp- left forehead. There is a right cerebral subdural hematoma measuring 26 mm in greatest width. 3.1 mm right to left midline shift. Critical finding called and case discussed. N.B. : The above Results were Read Back by Remy Escamilla MD to Sharad Richards MD, and understanding confirmed on 07/07/2022 18:02:08 (ET). Electronically Signed: Remy Escamilla MD at 17:49 EST , ADDENDUM: 07/07/22 1821 IMPRESSION: undefined Charges/Coding Visit Charges Inpatient E&M: 26084 Subs Hosp L2
[2022-07-07] MEDS: Atorvastatin Calcium 40 MG Tablet PO (21:42)
[2022-07-07] MEDS: Insulin Glargine-YFGN 100 UNIT/ML Pen 10 UNIT SC (21:43)
[2022-07-07] MEDS: QUEtiapine 25 MG Tablet PO (21:44)
[2022-07-07 22:15] LABS: Bedside Glucose 120 mg/dL (74-106)
[2022-07-08] VITALS (11 sets, daily range): BP systolic 128–177; BP diastolic 52–91; PULSE 50–63; RESP 15–17; TEMP 36.6; O2SAT 94–96
--- NOTE | 2022-07-08 01:57 | NURSING ---
FIELD KILN BURNER TRANSPORTS PT TO CT VIA CART. PT RESTING QUIETLY WITH EYES CLOSED. PT HAS JUST USED BEDPAN TO URINATE.
--- NOTE | 2022-07-08 02:00 | CT_ITS ---
EXAM: CT HEAD WITHOUT INTRAVENOUS CONTRAST CLINICAL INDICATION: fall with SDH TECHNIQUE: Multiple axial images were obtained of the head without intravenous contrast. This CT exam was performed using one or more of the following dose reduction techniques: automated exposure control, adjustment of the mA and/or kV according to patient size, and/or use of iterative reconstruction technique. This report was created using [employer] report generation technology. RADIATION DOSE: CTDIvol = 44.99 mGy, DLP = 812.98 mGy-cm. COMPARISON: 07/07/2022, 07/01/2022, and 06/27/2022. FINDINGS: BRAIN AND EXTRA-AXIAL SPACES: No change in the evolving right frontoparietal subdural hematoma with effacement of the adjacent sulci and approximately 2 mm of midline shift. Moderate generalized atrophy. Moderate low density bilaterally in the deep white matter. 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 Posterior fossa structures are unremarkable. No hydrocephalus. Basal cisterns are patent. BONES/JOINTS: Right frontal craniotomy. No discrete lytic or blastic abnormalities. SOFT TISSUES: Left frontal and forehead scalp soft tissue swelling increased slightly since the previous exam 07/07/2022. SINUSES: Unremarkable as visualized. Clear. MASTOID AIR CELLS: Unremarkable. Clear. ORBITS: Visualized globes, extraocular muscles, optic nerves and retrobulbar fat appear unremarkable. CT/Brain/Head without Contrast IMPRESSION: 1. No change in the evolving right frontoparietal subdural hematoma with effacement of the adjacent sulci and approximately 2 mm of midline shift. 2. Moderate generalized atrophy. Moderate low density bilaterally in the deep white matter. This likely represents small vessel ischemic changes in the deep white matter. 3. 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 4. Left frontal and forehead scalp soft tissue swelling increased slightly since the previous exam 07/07/2022. Electronically Signed: Mazin Eagle MD at 2:26 EST ,
--- NOTE | 2022-07-08 02:15 | NURSING ---
PT STRAIGHT CATHED FOR 425 ML OF CLEAR, LIGHT YELLOW URINE. PT TOLERATES PROCEDURE WELL. ENTIRE VULVA IS REDDENED AND SWOLLEN AND TENDER. NYSTATIN POWDER APPLIED.
--- NOTE | 2022-07-08 02:35 | PCM.HOSP.N ---
Hospitalist Note Repeat CT head as noted below with stable hematoma, suspect likely from prior and had just evolved from her last imaging at tertiary facility. Discussed with tax staff accountant and also requested that left frontal scalp have pressure applied. 1.? No change in the evolving right frontoparietal subdural hematoma with effacement of the adjacent sulci and approximately 2 mm of midline shift. ? 2.? Moderate generalized atrophy.? Moderate low density bilaterally in the deep white matter.? This likely represents small vessel ischemic changes in the deep white matter. ? 3.? 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 ? 4.? Left frontal and forehead scalp soft tissue swelling increased slightly since the previous exam 07/07/2022.
--- NOTE | 2022-07-08 02:36 | NURSING ---
DR ARDON HAS LOOKED AT RESULTS OF PT'S MOST RECENT CT. ORDERS GIVEN BY DR ARDON.
--- NOTE | 2022-07-08 03:08 | NURSING ---
PHARMACY NOTIFIED SECOND TIME VIA PHONE FOR APRESOLINE IV NEEDED FOR PT.
[2022-07-08] MEDS: hydrALAZINE 20 MG/ML Vial 10 MG IV ×2 (03:10→16:52)
[2022-07-08] MEDS: Carbidopa/Levodopa 25/100 Tablet PO ×3 (06:56→16:49)
[2022-07-08] MEDS: Levothyroxine 100 MCG Tablet PO (06:57)
[2022-07-08] MEDS: Acetaminophen 500 MG Tablet 1000 MG PO ×3 (06:57→21:01)
[2022-07-08] MEDS: hydrALAZINE 25 MG Tablet PO ×3 (06:59→21:00)
[2022-07-08] MEDS: Metoprolol Tartrate 50 MG Tablet PO ×3 (06:59→21:00)
[2022-07-08 07:10] LABS: Bedside Glucose 127 mg/dL (74-106)
[2022-07-08] MEDS: Insulin Lispro 100 UNIT/ML INSULN.PEN 6 UNIT SC ×3 (08:17→16:58)
[2022-07-08] MEDS: Cholecalciferol (VIT D3) 25 MCG TABLET (1,000 UNITS) PO (08:18)
[2022-07-08] MEDS: Nystatin Powder 15gm Bottle 1 APPLIC TOPICAL ×2 (08:18→21:00)
[2022-07-08] MEDS: amLODIPine 5 MG Tablet PO (08:18)
[2022-07-08] MEDS: LINAGLIPTIN 5 MG TABLET PO (08:18)
[2022-07-08] MEDS: Losartan Potassium 50 MG Tablet PO (08:18)
[2022-07-08] MEDS: Calcium Carb/Vitamin D 1 TABLET Tablet 2 TABLET PO ×2 (08:18→16:49)
[2022-07-08] MEDS: Memantine Hydrochloride 5 MG Tablet PO (08:18)
[2022-07-08] MEDS: Senna/Docusate Sodium 1 Tablet 2 TABLET PO ×2 (08:18→21:01)
[2022-07-08] MEDS: Menthol/Lanolin/Calamine/Znox 113 GM Tube 1 APPLIC TOPICAL ×2 (08:25→21:00)
[2022-07-08] MEDS: NYSTATIN 500,000 UNIT/5 ML UDC 500000 UNIT PO ×3 (08:26→21:01)
[2022-07-08] MEDS: 0.9% Normal Saline 1,000 ML 75 ML IV (10:25)
[2022-07-08 11:35] LABS: Bedside Glucose 180 mg/dL (74-106)
[2022-07-08] MEDS: Insulin Lispro 100 UNIT/ML INSULN.PEN SC ×2 (12:09→16:58)
[2022-07-08] MEDS: oxyCODONE 5 MG Tablet PO (12:43)
[2022-07-08 16:55] LABS: Bedside Glucose 207 mg/dL (74-106)
[2022-07-08] MEDS: QUEtiapine 25 MG Tablet PO (20:31)
[2022-07-08] MEDS: Atorvastatin Calcium 40 MG Tablet PO (21:00)
[2022-07-08] MEDS: Insulin Glargine-YFGN 100 UNIT/ML Pen 10 UNIT SC (21:00)
[2022-07-08 21:25] LABS: Bedside Glucose 176 mg/dL (74-106)
[2022-07-09] VITALS (11 sets, daily range): BP systolic 136–177; BP diastolic 47–66; PULSE 51–60; RESP 16–18; TEMP 36.7–36.9; O2SAT 96–99
[2022-07-09] MEDS: 0.9% Normal Saline 1,000 ML 75 ML IV ×2 (02:58→16:50)
[2022-07-09] MEDS: Metoprolol Tartrate 50 MG Tablet PO ×3 (05:07→21:46)
[2022-07-09] MEDS: Acetaminophen 500 MG Tablet 1000 MG PO ×3 (05:07→21:48)
[2022-07-09] MEDS: Levothyroxine 100 MCG Tablet PO (05:07)
[2022-07-09] MEDS: hydrALAZINE 25 MG Tablet PO ×3 (05:07→21:45)
--- NOTE | 2022-07-09 05:15 | NURSING ---
Pt incontinent of bowel and bladder. Bladder scanned for 270 mL post incontinence. Str/cathed for 250 mL. 0mL PVR after str/cath. Pt tolerated well.
[2022-07-09] MEDS: Carbidopa/Levodopa 25/100 Tablet PO ×3 (06:33→15:53)
[2022-07-09 07:10] LABS: Bedside Glucose 162 mg/dL (74-106)
[2022-07-09] MEDS: Insulin Lispro 100 UNIT/ML INSULN.PEN SC (08:13)
[2022-07-09] MEDS: Insulin Lispro 100 UNIT/ML INSULN.PEN 6 UNIT SC ×3 (08:14→16:49)
[2022-07-09] MEDS: Senna/Docusate Sodium 1 Tablet 2 TABLET PO ×2 (09:46→21:35)
[2022-07-09] MEDS: amLODIPine 5 MG Tablet PO (09:46)
[2022-07-09] MEDS: Cholecalciferol (VIT D3) 25 MCG TABLET (1,000 UNITS) PO (09:47)
[2022-07-09] MEDS: Losartan Potassium 50 MG Tablet PO (09:47)
[2022-07-09] MEDS: LINAGLIPTIN 5 MG TABLET PO (09:47)
[2022-07-09] MEDS: Memantine Hydrochloride 5 MG Tablet PO (09:47)
[2022-07-09] MEDS: Calcium Carb/Vitamin D 1 TABLET Tablet 2 TABLET PO ×2 (09:47→15:53)
[2022-07-09] MEDS: Menthol/Lanolin/Calamine/Znox 113 GM Tube 1 APPLIC TOPICAL ×2 (09:47→21:37)
[2022-07-09] MEDS: Nystatin Powder 15gm Bottle 1 APPLIC TOPICAL ×2 (09:47→21:34)
[2022-07-09] MEDS: NYSTATIN 500,000 UNIT/5 ML UDC 500000 UNIT PO ×4 (09:48→21:35)
[2022-07-09 11:30] LABS: Bedside Glucose 114 mg/dL (74-106)
[2022-07-09] MEDS: hydrALAZINE 20 MG/ML Vial 10 MG IV (15:51)
[2022-07-09 16:31] LABS: Bedside Glucose 141 mg/dL (74-106)
[2022-07-09] MEDS: oxyCODONE 5 MG Tablet PO (16:48)
[2022-07-09] MEDS: QUEtiapine 25 MG Tablet PO (20:03)
[2022-07-09] MEDS: Atorvastatin Calcium 40 MG Tablet PO (21:34)
[2022-07-09] MEDS: Insulin Glargine-YFGN 100 UNIT/ML Pen 10 UNIT SC (21:44)
[2022-07-09 21:55] LABS: Bedside Glucose 96 mg/dL (74-106)
[2022-07-10] VITALS (10 sets, daily range): BP systolic 137–184; BP diastolic 50–88; PULSE 55–81; RESP 18; TEMP 36.2–37; O2SAT 96–97
[2022-07-10] MEDS: Acetaminophen 500 MG Tablet 1000 MG PO ×3 (05:00→20:02)
[2022-07-10] MEDS: Levothyroxine 100 MCG Tablet PO (05:00)
[2022-07-10] MEDS: hydrALAZINE 25 MG Tablet PO ×3 (05:01→20:02)
[2022-07-10] MEDS: Metoprolol Tartrate 50 MG Tablet PO (05:02)
[2022-07-10] MEDS: Carbidopa/Levodopa 25/100 Tablet PO ×3 (06:10→17:02)
[2022-07-10 06:41] LABS: Bedside Glucose 169 mg/dL (74-106)
[2022-07-10] MEDS: 0.9% Normal Saline 1,000 ML 75 ML IV (06:57)
[2022-07-10] MEDS: LINAGLIPTIN 5 MG TABLET PO (07:36)
[2022-07-10] MEDS: Losartan Potassium 50 MG Tablet PO (07:36)
[2022-07-10] MEDS: Calcium Carb/Vitamin D 1 TABLET Tablet 2 TABLET PO ×2 (07:36→17:02)
[2022-07-10] MEDS: amLODIPine 5 MG Tablet PO (07:36)
[2022-07-10] MEDS: Memantine Hydrochloride 5 MG Tablet PO (07:36)
[2022-07-10] MEDS: Cholecalciferol (VIT D3) 25 MCG TABLET (1,000 UNITS) PO (07:36)
[2022-07-10] MEDS: Insulin Lispro 100 UNIT/ML INSULN.PEN 6 UNIT SC ×3 (07:48→17:07)
[2022-07-10] MEDS: Insulin Lispro 100 UNIT/ML INSULN.PEN SC (07:48)
[2022-07-10] MEDS: Menthol/Lanolin/Calamine/Znox 113 GM Tube 1 APPLIC TOPICAL ×2 (07:54→20:06)
[2022-07-10] MEDS: Nystatin Powder 15gm Bottle 1 APPLIC TOPICAL ×2 (07:54→20:05)
[2022-07-10] MEDS: NYSTATIN 500,000 UNIT/5 ML UDC 500000 UNIT PO ×4 (08:04→20:02)
[2022-07-10] MEDS: oxyCODONE 5 MG Tablet PO (09:41)
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
[2022-07-10 12:31] LABS: Bedside Glucose 131 mg/dL (74-106)
[2022-07-10] MEDS: hydrALAZINE 20 MG/ML Vial 10 MG IV (17:02)
[2022-07-10] MEDS: 0.9% Saline Lock 10 ML Syringe IV (17:04)
[2022-07-10 18:00] LABS: Bedside Glucose 123 mg/dL (74-106)
[2022-07-10] MEDS: QUEtiapine 25 MG Tablet PO (20:01)
[2022-07-10] MEDS: Metoprolol(XL)Succ 25 MG Tablet 75 MG PO (20:01)
[2022-07-10] MEDS: Atorvastatin Calcium 40 MG Tablet PO (20:02)
[2022-07-10] MEDS: Mirtazapine 15 MG Tablet 7.5 MG PO (20:18)
--- NOTE | 2022-07-10 21:15 | NURSING ---
Pt repeatedly yelling out this evening, staff into room multiple times to assist pt with sitting up in the bed, rubbing back per request. Pt has been bathed and changed into gown, given call light and instructed on use. Pt states I don't give a damn when reminded that she is in the hospital, and we are here to help. Then while getting washed up, pt apologized for being a bother, assured pt that she is ok, we are here to help. Pt again yelling out, at times yelling why don't you just let me over and over. One on one given, repositioned in bed for comfort, call light in reach, will continue to monitor.
[2022-07-10] MEDS: Insulin Glargine-YFGN 100 UNIT/ML Pen 12 UNIT SC (22:38)
[2022-07-10 23:05] LABS: Bedside Glucose 168 mg/dL (74-106)
[2022-07-11] VITALS (8 sets, daily range): BP systolic 142–153; BP diastolic 62–67; PULSE 55–60; RESP 17–18; TEMP 36.8–37.2; O2SAT 98–99
[2022-07-11] MEDS: 0.9% Normal Saline 1,000 ML 80 ML IV (02:21)
[2022-07-11 05:43] LABS: Hematocrit 31.6 % (37-47); Hemoglobin 9.7 g/dL (12.0-15.0); Mean Corp Hgb Conc 30.7 g/dL (32-36); Mean Corpuscular Volume 91.1 fL (81-99); Mean Platelet Vol. 10.2 fl (6.2-12.0); Platelet Count 301 K/mm3 (150-450); RBC Distribution Width CV 16.1 % (11.6-14.6); RBC Distribution Width SD 53.9 fl (35.1-43.9); Red Blood Count 3.47 M/mm3 (4.2-5.4); White Blood Count 7.3 K/mm3 (4.4-11.0)
[2022-07-11 06:04] LABS: Anion Gap 7 (5-15); BUN 9 mg/dL (7-18); BUN/Creat Ratio 14.3 RATIO (10-20); Calcium,Total 8.6 mg/dL (8.5-10.1); Chloride 111 mmol/L (98-107); Creatinine, Serum 0.63 mg/dL (0.55-1.02); EST Glomerular Filtration Rate 96 mL/min (>60); Est Glom Filt Rate - Afr Amer 116 mL/min (>60); Glucose 128 mg/dL (74-106); Potassium 3.3 mmol/L (3.5-5.1); Sodium Level 144 mmol/L (136-145)
[2022-07-11] MEDS: 0.9% Saline Lock 10 ML Syringe IV ×2 (06:36→20:10)
[2022-07-11] MEDS: Levothyroxine 100 MCG Tablet PO (06:38)
[2022-07-11] MEDS: Carbidopa/Levodopa 25/100 Tablet PO ×3 (06:38→16:34)
[2022-07-11] MEDS: hydrALAZINE 25 MG Tablet PO ×3 (06:38→20:12)
[2022-07-11] MEDS: Acetaminophen 500 MG Tablet 1000 MG PO ×3 (06:38→20:13)
[2022-07-11 07:26] LABS: Bedside Glucose 134 mg/dL (74-106)
[2022-07-11] MEDS: Cholecalciferol (VIT D3) 25 MCG TABLET (1,000 UNITS) PO (08:26)
[2022-07-11] MEDS: NYSTATIN 500,000 UNIT/5 ML UDC 500000 UNIT PO ×3 (08:26→20:11)
[2022-07-11] MEDS: Insulin Lispro 100 UNIT/ML INSULN.PEN 6 UNIT SC ×3 (08:26→16:34)
[2022-07-11] MEDS: LINAGLIPTIN 5 MG TABLET PO (08:26)
[2022-07-11] MEDS: Senna/Docusate Sodium 1 Tablet 2 TABLET PO ×2 (08:27→20:11)
[2022-07-11] MEDS: amLODIPine 5 MG Tablet PO (08:27)
[2022-07-11] MEDS: Memantine Hydrochloride 5 MG Tablet PO (08:28)
[2022-07-11] MEDS: Menthol/Lanolin/Calamine/Znox 113 GM Tube 1 APPLIC TOPICAL ×2 (08:28→20:13)
[2022-07-11] MEDS: Losartan Potassium 100 MG Tablet PO (08:28)
[2022-07-11] MEDS: Calcium Carb/Vitamin D 1 TABLET Tablet 2 TABLET PO ×3 (08:28→16:40)
[2022-07-11] MEDS: Nystatin Powder 15gm Bottle 1 APPLIC TOPICAL ×2 (08:28→20:14)
[2022-07-11] MEDS: Metoprolol(XL)Succ 25 MG Tablet 75 MG PO ×2 (10:18→20:12)
--- NOTE | 2022-07-11 10:54 | PCM.PROGNOTE ---
Subjective Subjective Afebrile VSS - BP has come down today. Cozaar was just increased yesterday. She has PRN Hydralazine ordered. She has not had any Hydralazine since yesterday at 5 PM. She is much less agitated today and I suspect that is why the BP is lower. Maintaining appropriate oxygen saturation on RA Oral intake is poor. She was started on Remeron 7.5 mg last night. The blood sugar record was reviewed and all blood sugars for 1114 or less than 170. The fasting blood sugar today is 134. Discussed with nursing - no problems that need addressed. She slept well today and is pleasant and not yelling this AM. She is not agitated and she is calm. Reviewed the PT/OT/ST notes. OT pointed out to me that she is not using her Left arm much and is holding it against her side. There is bruising over the upper arm on the left and a hard lump over the lateral humerus. Medication list reviewed. All lab was personally reviewed. HGB has dropped from 10.9 on 07/04/2022 to 9.7 on 07/11/2022 but. she is much better hydrated today. The BUN has decreased from 22 on 1110 22-9 today. White blood cell count is 7.3 and platelets are within normal limits. Potassium was low at 3.3 today and the BUN is 9 with a creatinine of 0.63. I asked Cristin today how is your head and she responded I hope it is on straight. She said good morning to me and she is very pleasant and calm. She is following commands and is cooperative. She did well with OT today. She is polite and thanks people for helping her. Cristin has no complaints today. Objective Data Objective Data Vital Signs: Vital Signs Temp Pulse Resp BP Pulse Ox O2 Del Method 98.2 F 55 L 18 142/64 H 98 Room Air 07/11/22 08:20 07/11/22 10:18 07/11/22 08:20 07/11/22 10:18 07/11/22 08:20 07/11/22 08:20 Oxygen Delivery Method Room Air Weight: 179 lb 0.246 oz Body Mass Index (BMI) 28.8 Intake & Output: Intake and Output for Last 24 Hours 07/09/22 07/10/22 07/11/22 23:59 23:59 23:59 Intake Total 1060 / 1060 1292.5 / 1292.5 1107.5 / 1107.5 Output Total 275 / 275 100 / 100 Balance 785 / 785 1192.5 / 1192.5 1107.5 / 1107.5 Lab / Micro Data Result Diagrams: 07/11/22 05:24 07/11/22 05:24 Labs: Laboratory Results - last 24 hr 07/10/22 11:58: POC Glucose 131 H 07/10/22 16:51: POC Glucose 123 H 07/10/22 22:37: POC Glucose 168 H 07/11/22 05:24: WBC 7.3, RBC 3.47 L, Hgb 9.7 L, Hct 31.6 L, MCV 91.1, MCH 28.0, MCHC 30.7 L, RDW Std Deviation 53.9 H, RDW Coeff of Darius 16.1 H, Plt Count 301, MPV 10.2 07/11/22 05:24: Sodium 144, Potassium 3.3 L, Chloride 111 H, Carbon Dioxide 26.0, Anion Gap 7, BUN 9, Creatinine 0.63, Estim Creat Clear Calc 41.30, Est GFR (MDRD) Af Amer 116, Est GFR (MDRD) Non-Af 96, BUN/Creatinine Ratio 14.3, Glucose 128 H, Calcium 8.6 07/11/22 07:06: POC Glucose 134 H Micro: Microbiology 07/04/22 15:00 Urine, Catheterized Urine Culture - Final Culture exhibits no growth. Physical Exam Const alert and no apparent distress Constitutional Narrative: Less swelling in the L serge-orbital area today. Talkative and more appropriate today. General Appearance: cooperative Eyes PERRL and EOMs intact bilaterally Neck supple Resp normal respiratory effort and clear to auscultation bilaterally Resp Narrative: No conversational dyspnea Effort and Inspection: Negative for tachypneic Cardio regular rate, regular rhythm and no gallops GI normal to inspection, nondistended, normoactive bowel sounds, soft to palpation and non-tender Extremity Extremity Narrative: No grimacing when I squeeze her calves or dorsiflex her foot. No redness of the distal LE's. General Extremity: Negative for edema Skin General Skin Exam: no breakdown Wound Narrative: She has a small scab at the lateral canthus of the Left eye......no redness and no DC......I suspect this happend when she fell on her Left side last Sunday night. She is not c/o eye pain. The sclera is clear and the is no DC from the eye. Neuro CN's II-XII intact bilaterally Neuro Narrative: She is holding the left arm close to her body and the arm seems weak per OT. Assessment & Plan Assessment/Plan (1) Debility: (2) Acute on chronic intracranial subdural hematoma: (3) Status post craniotomy: (4) Head trauma: (5) Dehydration: (6) Diabetes mellitus type 2, insulin dependent: (7) Hypokalemia: PLAN: Plan 1. Continue therapy 2. Continue Seroquel and Remeron at at bedtime. She is sleeping well at night now and is calmer today than she has been so far this admission. 3. Continue nutritional supplements per the dietitian. 4. Continue the current insulin regimen......will try and get her onto her prior hypoglycemic regimen once oral intake improves. 5. Continue the IV fluids at night until intake improves. 6. Xray of the L humerus today. Charges/Coding Visit Charges Inpatient E&M: 30298 Subs Hosp L2
--- NOTE | 2022-07-11 11:15 | RAD_ITS ---
STUDY: X-RAY - LEFT HUMERUS REASON FOR EXAM: Female, 81 years old. Pain after fall TECHNIQUE: 2 view(s) of the humerus. COMPARISON: None. FINDINGS: Healed fracture of the midshaft of the humerus with the deformity. There is no demonstrated fracture or osseous destructive process. There is no demonstrated soft tissue abnormality. RAD/Humerus min 2 Views IMPRESSION: Deformity of the mid shaft of the humerus with healing of old fracture. Electronically Signed: Rayray Doan MD at 12:06 EST ,
--- NOTE | 2022-07-11 11:17 | NURSING ---
spoke with Bridget at Dr Villaseñor's. The Doctor is going to request copy of CT scan for radiology, she wants to views results before making a decision DVT prophylaxis
[2022-07-11 12:30] LABS: Bedside Glucose 160 mg/dL (74-106)
[2022-07-11] MEDS: Potassium Chloride Oral Tablet 20 MEQ PO ×3 (12:52→20:13)
[2022-07-11] MEDS: oxyCODONE 5 MG Tablet PO (16:40)
[2022-07-11 17:25] LABS: Bedside Glucose 139 mg/dL (74-106)
[2022-07-11] MEDS: QUEtiapine 25 MG Tablet PO (20:12)
[2022-07-11] MEDS: Mirtazapine 15 MG Tablet 7.5 MG PO (20:13)
[2022-07-11] MEDS: Atorvastatin Calcium 40 MG Tablet PO (20:13)
--- NOTE | 2022-07-11 21:51 | NURSING ---
IV fluids started late d/t RAC iv site leaking when flushed, restarted in RFA by ZAYRA Kay. IVF started for the night, pt tolerated well. Will continue to monitor.
[2022-07-11] MEDS: Insulin Glargine-YFGN 100 UNIT/ML Pen 12 UNIT SC (22:29)
[2022-07-11 22:40] LABS: Bedside Glucose 82 mg/dL (74-106)
[2022-07-12] VITALS (7 sets, daily range): BP systolic 137–160; BP diastolic 54–65; PULSE 54–58; RESP 16; TEMP 36.4–36.9; O2SAT 97–99
[2022-07-12] MEDS: Carbidopa/Levodopa 25/100 Tablet PO ×3 (05:40→17:35)
[2022-07-12] MEDS: Acetaminophen 500 MG Tablet 1000 MG PO ×3 (05:40→20:53)
[2022-07-12] MEDS: hydrALAZINE 25 MG Tablet PO ×3 (05:40→20:57)
[2022-07-12] MEDS: Levothyroxine 100 MCG Tablet PO (05:44)
[2022-07-12 06:55] LABS: Bedside Glucose 119 mg/dL (74-106)
[2022-07-12] MEDS: NYSTATIN 500,000 UNIT/5 ML UDC 500000 UNIT PO ×4 (07:35→20:54)
[2022-07-12] MEDS: LINAGLIPTIN 5 MG TABLET PO (07:36)
[2022-07-12] MEDS: amLODIPine 5 MG Tablet PO (07:36)
[2022-07-12] MEDS: Senna/Docusate Sodium 1 Tablet 2 TABLET PO ×2 (07:36→20:54)
[2022-07-12] MEDS: Cholecalciferol (VIT D3) 25 MCG TABLET (1,000 UNITS) PO (07:36)
[2022-07-12] MEDS: Metoprolol(XL)Succ 25 MG Tablet 75 MG PO ×2 (07:36→20:54)
[2022-07-12] MEDS: Memantine Hydrochloride 5 MG Tablet PO (07:36)
[2022-07-12] MEDS: Losartan Potassium 100 MG Tablet PO (07:36)
[2022-07-12] MEDS: Insulin Lispro 100 UNIT/ML INSULN.PEN 6 UNIT SC ×2 (07:37→11:18)
[2022-07-12] MEDS: Menthol/Lanolin/Calamine/Znox 113 GM Tube 1 APPLIC TOPICAL ×2 (07:44→20:56)
[2022-07-12] MEDS: Nystatin Powder 15gm Bottle 1 APPLIC TOPICAL ×2 (07:45→20:55)
--- NOTE | 2022-07-12 10:31 | CONS.ORTHO ---
HPI Consult Data Date of Consult: 07/12/22 HPI Narrative Reason for Consultation: Fall/left arm pain HPI Narrative: NADEGE HINDS, is a 81 F who presents [facility] Medical History Dementia Diabetes mellitus type 2, insulin dependent Hypertension Hypothyroidism Parkinson's disease Allergy/AdvReac Type Severity Reaction Status Date / Time No Known Allergies Allergy Verified 07/03/22 20:54 Surgical History History of appendectomy History of right cataract extraction S/P hysterectomy Status post craniotomy Social History (Updated 07/04/22 @ 14:[address] 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 Smoking Status: Never smoker alcohol intake: never substance use type: does not use Vital Signs Vital Signs Vital Signs: 07/11/22 14:15 07/11/22 14:18 07/11/22 19:47 Temperature 98.9 F Temperature Source Temporal Pulse Rate 60 60 58 L Respiratory Rate 17 Respiratory Effort Respiratory Depth Respiratory Pattern Blood Pressure 153/67 H 153/67 H 145/62 H Blood Pressure Mean 95 89 Blood Pressure Source Monitor Monitor Blood Pressure Position Semi-Fowlers Semi-Fowlers Blood Pressure Location Right Forearm Right Forearm Pulse Ox 99 Oxygen Delivery Method Room Air 07/11/22 20:12 07/11/22 20:12 07/11/22 20:00 Temperature Temperature Source Pulse Rate 58 L 58 L Respiratory Rate Respiratory Effort Normal Non-Labored Respiratory Depth Normal Respiratory Pattern Normal Blood Pressure 145/62 H 145/62 H Blood Pressure Mean Blood Pressure Source Blood Pressure Position Blood Pressure Location Pulse Ox 98 Oxygen Delivery Method Room Air 07/12/22 05:40 07/12/22 07:34 07/12/22 07:36 Temperature 98.4 F Temperature Source Oral Pulse Rate 56 L 54 L 54 L Respiratory Rate 16 Respiratory Effort Respiratory Depth Respiratory Pattern Blood Pressure 160/62 H 160/62 H 160/62 H Blood Pressure Mean 94 Blood Pressure Source Monitor Blood Pressure Position Semi-Fowlers Blood Pressure Location Right Arm Pulse Ox 97 Oxygen Delivery Method Room Air Weight Weight: 81.2 kg Body Mass Index (BMI) 28.8 Physical Exam Narrative Upon exam I found a pleasant mildly confused 81-year-old female lying in bed awake, with her left arm in a sling. Patient was alert to time and place. Patient was in no respiratory distress and speaking in full sentences. Patient had a small area of ecchymosis along the periorbital region of the left eye. Cranial nerves II through XII gross intact. Patient had no signs of trauma to the head face and neck. Patient excellent range of motion of the right shoulder elbow wrist and hand without pain. Patient identified pain in the area of the proximal humeral region. There was no obvious signs of trauma to the left proximal or midshaft humeral region. No ecchymosis. No gross bony deformity. Patient did have palpable callus bone formation appreciated in the midshaft humeral region. The biceps was intact she had good strength with flexion extension of the elbow wrist and hand. She had good thumbs up. Patient was able to elevate her left arm, with an arc of motion of 0 to 110 degrees. She had active abduction to 80 degrees. Patient had mild discomfort in the proximal humeral region with internal or external rotation of the arm. She had good strength with resistance of the biceps, with no palpable defect within the biceps body or at the distal proximal biceps tendon region. Patient was lacking approximately 10 degrees full extension of the elbow but no appreciable pain. Neurovascular is otherwise intact. Review of imaging studies 2 views of the humerus show patient does have a well-healed midshaft humeral fracture. There is good callus bone formation in this area. There does not appear to be any new fractures or other bony abnormality noted. Const alert General Appearance: cooperative HEENT normocephalic Eyes PERRL Resp normal respiratory effort Effort and Inspection: able to speak in complete sentences Neuro CN's II-XII intact bilaterally Psych mental status grossly normal Lab / Micro Data Result Diagrams: 07/11/22 05:24 07/11/22 05:24 Labs: Laboratory Results - last 24 hr 07/11/22 12:10: POC Glucose 160 H 07/11/22 16:33: POC Glucose 139 H 07/11/22 22:10: POC Glucose 82 07/12/22 06:29: POC Glucose 119 H Radiology Impression Humerus X-Ray 07/11/22 11:15 IMPRESSION: Deformity of the mid shaft of the humerus with healing of old fracture. Electronically Signed: Rayray Doan MD at 12:06 EST , Assessment & Plan Assessment/Plan (1) Contusion of left shoulder: (2) Contusion of left shoulder or upper extremity: PLAN: 1. Discontinue the sling 2. Begin physical therapy with active range of motion of the shoulder elbow wrist and hand 3. Tylenol 1 g every 8 hours as needed for pain 4. The patient continues to have any discomfort consideration for CT could be made. 5. Active range of motion and activity as tolerated with left arm.
[2022-07-12] MEDS: oxyCODONE 5 MG Tablet PO (11:15)
[2022-07-12 11:40] LABS: Bedside Glucose 109 mg/dL (74-106)
[2022-07-12] MEDS: Glucerna Shake 120 ML LIQUID PO ×3 (14:07→20:56)
--- NOTE | 2022-07-12 16:10 | NURSING ---
dinner glucose was, 8oz OJ given recheck was 76. dinner to be given. Dr Orourke made aware. NNO
[2022-07-12 16:26] LABS: Bedside Glucose 55 mg/dL (74-106)
[2022-07-12 16:50] LABS: Bedside Glucose 76 mg/dL (74-106)
[2022-07-12] MEDS: Calcium Carb/Vitamin D 1 TABLET Tablet 2 TABLET PO (17:35)
[2022-07-12] MEDS: 0.9% Normal Saline 1,000 ML 80 ML IV (20:51)
[2022-07-12] MEDS: 0.9% Saline Lock 10 ML Syringe IV (20:52)
[2022-07-12] MEDS: Atorvastatin Calcium 40 MG Tablet PO (20:55)
[2022-07-12] MEDS: Insulin Glargine-YFGN 100 UNIT/ML Pen 12 UNIT SC (20:55)
[2022-07-12] MEDS: QUEtiapine 25 MG Tablet PO (20:57)
[2022-07-12] MEDS: Mirtazapine 15 MG Tablet 7.5 MG PO (20:57)
[2022-07-12 21:30] LABS: Bedside Glucose 151 mg/dL (74-106)
[2022-07-13] VITALS (10 sets, daily range): BP systolic 173–187; BP diastolic 60–71; PULSE 56–60; RESP 16–18; TEMP 36.7–36.8; O2SAT 99
[2022-07-13] MEDS: hydrALAZINE 20 MG/ML Vial 10 MG IV (06:20)
[2022-07-13] MEDS: Acetaminophen 500 MG Tablet 1000 MG PO ×3 (06:22→20:05)
[2022-07-13] MEDS: Levothyroxine 100 MCG Tablet PO (06:22)
[2022-07-13] MEDS: hydrALAZINE 25 MG Tablet PO ×3 (06:22→20:03)
[2022-07-13] MEDS: Carbidopa/Levodopa 25/100 Tablet PO ×3 (06:22→17:14)
[2022-07-13 06:50] LABS: Bedside Glucose 161 mg/dL (74-106)
[2022-07-13] MEDS: Insulin Lispro 100 UNIT/ML INSULN.PEN 6 UNIT SC ×3 (08:19→17:24)
[2022-07-13] MEDS: Calcium Carb/Vitamin D 1 TABLET Tablet 2 TABLET PO ×2 (08:19→17:14)
[2022-07-13] MEDS: Metoprolol(XL)Succ 25 MG Tablet 75 MG PO ×2 (08:19→20:04)
[2022-07-13] MEDS: NYSTATIN 500,000 UNIT/5 ML UDC 500000 UNIT PO ×4 (08:19→20:04)
[2022-07-13] MEDS: LINAGLIPTIN 5 MG TABLET PO (08:20)
[2022-07-13] MEDS: Senna/Docusate Sodium 1 Tablet 2 TABLET PO ×2 (08:20→20:06)
[2022-07-13] MEDS: amLODIPine 5 MG Tablet PO (08:20)
[2022-07-13] MEDS: Losartan Potassium 100 MG Tablet PO (08:20)
[2022-07-13] MEDS: Cholecalciferol (VIT D3) 25 MCG TABLET (1,000 UNITS) PO (08:21)
[2022-07-13] MEDS: Menthol/Lanolin/Calamine/Znox 113 GM Tube 1 APPLIC TOPICAL ×2 (08:21→20:06)
[2022-07-13] MEDS: Nystatin Powder 15gm Bottle 1 APPLIC TOPICAL ×2 (08:21→20:06)
[2022-07-13] MEDS: Glucerna Shake 120 ML LIQUID PO ×4 (08:22→20:09)
[2022-07-13] MEDS: Memantine Hydrochloride 5 MG Tablet PO (08:22)
[2022-07-13] MEDS: oxyCODONE 5 MG Tablet PO (08:30)
[2022-07-13] MEDS: Magnesium Hydroxide 30 ML UDC PO (08:30)
--- NOTE | 2022-07-13 09:36 | PN_ITS ---
Subjective Subjective Afebrile VSS-heart rates have consistently been in the 50s. Systolic blood pressure is frequently elevated however the diastolic is within normal limits. It goes down in the evening and the high systolics may be related to agitation and yelling during her therapy hours. Maintaining appropriate oxygen saturation on RA Oral intake is improving. She ate 75 to 100% of her breakfast today. She also ate 75 to 100% of her dinner last night. The blood sugar record was reviewed. She did have 1 low blood sugar prior to dinner yesterday of 55. Up until dinner her intake had been poor yesterday. Fasting blood sugar today is 161. Last bowel movement was 07/10/2022. If no bowel movement today will give a laxa tive tomorrow. She had several BM's on the so I am not concerned about constipation yet. Discussed with nursing - Continues to yell out at times but, much less that a few days ago. Apparently her dtr-in-law told nursing she has been yelling for years and also throwing things. She is sleeping well at night. Reviewed the PT/OT/ST notes - She has been cooperating with therapy. Medication list reviewed. Now that her intake is improving will DC the IV fluids. She was seen by orthopedics yesterday. Cristin had an old L mid humeral fracture and there is good callus formation. There does not appear to be a new fracture through the old callus. She has good ROM of the LUE and good strength. She has some soreness in the Left shoulder. The sling was discontinued. Cristin appears in no distress today and I have not heard her yelling this morning. Objective Data Objective Data Vital Signs: Vital Signs Temp Pulse Resp BP Pulse Ox O2 Del Method 98.1 F 59 L 18 173/60 H 99 Room Air 07/13/22 07:35 07/13/22 08:19 07/13/22 07:35 07/13/22 07:35 07/13/22 07:35 07/13/22 07:35 Oxygen Delivery Method Room Air Weight: 179 lb 0.246 oz Body Mass Index (BMI) 28.8 Intake & Output: Intake and Output for Last 24 Hours 07/11/22 07/12/22 07/13/22 23:59 23:59 23:59 Intake Total 1107.5 / 1107.5 660 / 660 1025.33 / 1025.33 Output Total 200 / 200 Balance 1107.5 / 1107.5 660 / 660 825.33 / 825.33 Lab / Micro Data Result Diagrams: 07/14/22 05:29 07/14/22 05:29 Labs: Laboratory Results - last 24 hr 07/12/22 11:17: POC Glucose 109 H 07/12/22 16:07: POC Glucose 55 L 07/12/22 16:33: POC Glucose 76 07/12/22 20:51: POC Glucose 151 H 07/13/22 06:11: POC Glucose 161 H Micro: Microbiology 07/04/22 15:00 Urine, Catheterized Urine Culture - Final Culture exhibits no growth. Physical Exam Const alert Resp clear to auscultation bilaterally Cardio regular rate, regular rhythm and no gallops GI normal to inspection, nondistended, normoactive bowel sounds, soft to palpation and non-tender Extremity General Extremity: Negative for edema Skin General Skin Exam: no breakdown Rashes: no rashes Wound Narrative: Craniotomy incision has no serge-incisional erythema, no discharge and no significant swelling. It is intact with no dehiscence. Neuro CN's II-XII intact bilaterally Neuro Narrative: Left side neglect Assessment & Plan Assessment/Plan (1) Acute on chronic intracranial subdural hematoma: (2) Debility: (3) Status post craniotomy: (4) Diabetes mellitus type 2, insulin dependent: (5) Parkinson's disease: (6) Dementia: (7) Dementia with behavioral disturbance: PLAN: Plan 1. Continue therapy 2. BMP and HH in AM 3. She has had 1 episode of hypoglycemia since admission and the lispro with supper yesterday was held. She is eating better now so will continue the same insulin regimen. Will have her family bring a list of the medications she was taking at home prior to hospital admission. They say she was on oral agents for diabetes control. 4. Discontinue IV fluids 5. Nursing to record accurate fluid intake daily Charges/Coding Visit Charges Inpatient E&M: 69654 Subs Hosp L2
--- NOTE | 2022-07-13 10:21 | NURSING ---
Received call from Gayle in Dr. Villaseñor's office. Per the doctor pt may start DVT prophylaxes.
[2022-07-13 11:40] LABS: Bedside Glucose 172 mg/dL (74-106)
--- NOTE | 2022-07-13 13:02 | CASEMGMT ---
Addendum entered by Naty Pearl 07/13/22 15:58: Received return call from son. Provided updates from Team meeting. SW encouraged son/DIL to participate in Team meeting via phone or person. DIL plans to attend. Son confirmed pt to be Navi x1 assist for all tasks, if not more independent. DIL will be providing 24/7 care. SW inquired about alternative option if insurance issues DC. Son/DIL only want TCU as a SNF option. SW made referral to TCU and they are not accepting her insurance. Updated son and sent SNF list with quality and resource data via [employer]. Son appreciative. SW to continue to follow. Original Note: Social Work IDT met with patient for Team meeting. Left message for son. Discussed patient's progress in PT/OT/ST/SN, Educated to [facility] insurance with NRD 07/17 and continued stay is not guaranteed with each review. Per initial assessment, pt can return home at one person, at least min. assist for DIL to care for pt 24/. However, family has not participated in Team and those expectations may have changed. Pt is total assist for ADLs and memory is poor. Pt has responded well to medication changes. IDT recommends continued stay for ongoing therapy and nursing care. SW to continue to follow. ReTeam next week. Naty Pearl, [employer]SEMBLER
[2022-07-13 16:55] LABS: Bedside Glucose 140 mg/dL (74-106)
[2022-07-13] MEDS: 0.9% Saline Lock 10 ML Syringe IV (17:14)
[2022-07-13] MEDS: QUEtiapine 25 MG Tablet PO (20:04)
[2022-07-13] MEDS: Mirtazapine 15 MG Tablet 7.5 MG PO (20:05)
[2022-07-13] MEDS: Atorvastatin Calcium 40 MG Tablet PO (20:05)
[2022-07-13] MEDS: Insulin Glargine-YFGN 100 UNIT/ML Pen 12 UNIT SC (21:51)
[2022-07-13 22:05] LABS: Bedside Glucose 192 mg/dL (74-106)
[2022-07-14] VITALS (8 sets, daily range): BP systolic 112–174; BP diastolic 57–79; PULSE 55–57; RESP 16–18; TEMP 36.8–36.9; O2SAT 98–99
[2022-07-14] MEDS: oxyCODONE 5 MG Tablet PO (00:49)
[2022-07-14 00:56] LABS: Bedside Glucose 176 mg/dL (74-106)
--- NOTE | 2022-07-14 01:07 | NURSING ---
pt very restless, screaming out help even when the nurses are in the room, much 1:1 spent w the pt, given drinks, snacks, repositioned, toileted and medicated for head pain 04/05. pt finally calmed and wanted to get back into bed form the bsc and try to sleep. blood sugar was also checked because she was all sweaty and hot-176
--- NOTE | 2022-07-14 03:00 | NURSING ---
PT AWAKE AND TRYING TO CLIMB OOB AND HITTING STAFF. PT'S SPEECH REMAINS CLEAR. FREGOSO WELL.. PT HAS BEEN GIVEN A SNACK, OFFERED FLUIDS, HAS JUST BEEN STRAIGHT CATHED AFTER SITTING ON TOILET, ORAL CARE GIVEN AND MULTIPLE OTHER INTERVENTIONS.
--- NOTE | 2022-07-14 03:30 | NURSING ---
CALL PLACED TO DR KRISHNAMURTHY AND INFORMED OF PT'S BEHAVIOR. ADVISED TO CHECK BP AND GIVEN APRESOLINE IV IF NEEDED PER PRN ORDER.
--- NOTE | 2022-07-14 03:55 | NURSING ---
PT IS CALMER AND NOW THAT SHE IS BEING PUSHED AROUND IN A WHEELCHAIR IN UNIT WITH A DRINK OF WARM TEA. SOON AFTER BEING IN CHAIR PT STATES SHE WANTS TO RETURN TO BED. PT INFORMED SHE IS NOT GOING BACK TO BED AT THIS TIME. TAKEN TO ACTIVITY ROOM AND GIVEN A PUZZLE TO WORK ON WITH STAFF MEMBER. PT REPEATEDLY ASKING TO GET OOB.
[2022-07-14] MEDS: Levothyroxine 100 MCG Tablet PO (04:34)
[2022-07-14] MEDS: Acetaminophen 500 MG Tablet 1000 MG PO ×3 (04:34→19:59)
[2022-07-14] MEDS: Carbidopa/Levodopa 25/100 Tablet PO ×3 (04:38→15:35)
[2022-07-14] MEDS: hydrALAZINE 25 MG Tablet PO ×3 (04:38→19:59)
--- NOTE | 2022-07-14 04:40 | NURSING ---
PT RETURNED TO BED AFTER MULTIPLE REQUESTS AND RESTING WITH EYES CLOSED.
--- NOTE | 2022-07-14 05:18 | NURSING ---
PT CONTINUES TO REST WITH EYES CLOSED. HALDOL NOT GIVEN AT THIS TIME PT IS RESTING. WILL CONTINUE TO MONITOR PT.
[2022-07-14 05:44] LABS: Hematocrit 34.1 % (37-47); Hemoglobin 10.3 g/dL (12.0-15.0)
[2022-07-14 06:21] LABS: Anion Gap 5 (5-15); BUN 11 mg/dL (7-18); BUN/Creat Ratio 13.2 RATIO (10-20); Calcium,Total 9.6 mg/dL (8.5-10.1); Chloride 105 mmol/L (98-107); Creatinine, Serum 0.83 mg/dL (0.55-1.02); EST Glomerular Filtration Rate 70 mL/min (>60); Est Glom Filt Rate - Afr Amer 85 mL/min (>60); Estimated Creatinine Clearance 49.76 ml/min; Glucose 199 mg/dL (74-106); Potassium 3.8 mmol/L (3.5-5.1); Sodium Level 140 mmol/L (136-145)
[2022-07-14 07:06] LABS: Bedside Glucose 181 mg/dL (74-106)
[2022-07-14] MEDS: Menthol/Lanolin/Calamine/Znox 113 GM Tube 1 APPLIC TOPICAL ×2 (07:48→20:02)
[2022-07-14] MEDS: Insulin Lispro 100 UNIT/ML INSULN.PEN 6 UNIT SC ×3 (07:59→16:26)
[2022-07-14] MEDS: Calcium Carb/Vitamin D 1 TABLET Tablet 2 TABLET PO ×2 (08:01→15:35)
[2022-07-14] MEDS: Losartan Potassium 100 MG Tablet PO (08:02)
[2022-07-14] MEDS: Memantine Hydrochloride 5 MG Tablet PO (08:03)
[2022-07-14] MEDS: LINAGLIPTIN 5 MG TABLET PO (08:04)
[2022-07-14] MEDS: amLODIPine 5 MG Tablet PO (08:06)
[2022-07-14] MEDS: Nystatin Powder 15gm Bottle 1 APPLIC TOPICAL ×2 (08:07→20:02)
[2022-07-14] MEDS: NYSTATIN 500,000 UNIT/5 ML UDC 500000 UNIT PO ×3 (08:07→19:58)
[2022-07-14] MEDS: Senna/Docusate Sodium 1 Tablet 2 TABLET PO ×2 (08:08→19:59)
[2022-07-14] MEDS: Metoprolol(XL)Succ 25 MG Tablet 75 MG PO ×2 (08:08→19:58)
[2022-07-14] MEDS: Cholecalciferol (VIT D3) 25 MCG TABLET (1,000 UNITS) PO (08:12)
[2022-07-14 11:20] LABS: Bedside Glucose 154 mg/dL (74-106)
--- NOTE | 2022-07-14 11:55 | PN_ITS ---
Subjective Subjective Afebrile VSS Maintaining appropriate oxygen saturation on RA Oral intake is good The blood sugar record was reviewed. No hypoglycemia and all blood sugars are under 200. Discussed with nursing - She is retaining urine again and she was straight cath'd last night for 500. The night hospitalist was called last night for increased agitation.......Haldol was ordered but, did not have to be given. Reviewed the PT/OT/ST notes Medication list reviewed. All lab drawn today was personally reviewed. Hemoglobin is stable at 10.3. The potassium today is 3.8, up from 3.3 on 07/11/2022. Sodium is within normal li mits. BUN is 11 and the creatinine is 0.83 which is within her baseline. Intravenous fluids were discontinued yesterday because her appetite and intake has significantly improved over the past few days. Fasting blood sugar was elevated at 181 this morning and the at bedtime blood sugar was 176. Cristin is not c/o pain today. She is eating well and sleeping well at night. No constipation or diarrhea. No complaints other than she wants to get out of the bed and into a chair. Objective Data Objective Data Vital Signs: Vital Signs Temp Pulse Resp BP Pulse Ox O2 Del Method 98.4 F 57 L 16 168/66 H 98 Room Air 07/14/22 07:42 07/14/22 08:08 07/14/22 07:42 07/14/22 08:08 07/14/22 07:42 07/14/22 07:42 Oxygen Delivery Method Room Air Weight: 179 lb 0.246 oz Body Mass Index (BMI) 28.8 Intake & Output: Intake and Output for Last 24 Hours 07/12/22 07/13/22 07/14/22 23:59 23:59 23:59 Intake Total 660 / 660 2479.33 / 2479.33 1020 / 1020 Output Total 200 / 200 700 / 700 Balance 660 / 660 2279.33 / 2279.33 320 / 320 Lab / Micro Data Result Diagrams: 07/16/22 05:33 07/16/22 05:33 Labs: Laboratory Results - last 24 hr 07/13/22 16:10: POC Glucose 140 H 07/13/22 21:29: POC Glucose 192 H 07/14/22 00:29: POC Glucose 176 H 11/18/22 05:29: Hgb 10.3 L, Hct 34.1 L 07/14/22 05:29: Sodium 140, Potassium 3.8, Chloride 105, Carbon Dioxide 30.0, Anion Gap 5, BUN 11, Creatinine 0.83, Estim Creat Clear Calc 49.76, Est GFR (MDRD) Af Amer 85, Est GFR (MDRD) Non-Af 70, BUN/Creatinine Ratio 13.2, Glucose 199 H, Calcium 9.6 07/14/22 06:45: POC Glucose 181 H 07/14/22 11:02: POC Glucose 154 H Micro: Microbiology 07/04/22 15:00 Urine, Catheterized Urine Culture - Final Culture exhibits no growth. Physical Exam Const alert Constitutional Narrative: Sometimes cooperative and sometimes not. Still yelling out but, not as often. Eyes PERRL and EOMs intact bilaterally Neck supple Resp normal respiratory effort and clear to auscultation bilaterally Cardio regular rate and no gallops GI normal to inspection, nondistended, normoactive bowel sounds and soft to palpation GI Narrative: No guarding with palpation Extremity General Extremity: Negative for edema Skin General Skin Exam: no breakdown Rashes: no rashes Assessment & Plan Assessment/Plan (1) Debility: (2) Acute on chronic intracranial subdural hematoma: (3) Status post craniotomy: (4) Dementia with behavioral disturbance: (5) Diabetes mellitus type 2, insulin dependent: (6) Atrial fibrillation: (7) Parkinson's disease: (8) Urine retention: PLAN: Plan 1. Continue therapy. 2. straight cath and send urine for complete UA 3. straight cath PRN. 4. I have serious reservations about the ability of her dtr-in-law to care for Cristin at home......she needs 24/7 observation and requires a lot of assistance. Will have her come in for family training prior to DC to see if she is going to provide the assistance Cristin still needs. Charges/Coding Visit Charges Inpatient E&M: 09984 Subs Hosp L2
[2022-07-14] MEDS: Glucerna Shake 120 ML LIQUID PO (13:44)
[2022-07-14] MEDS: Haloperidol Lactate 5 MG/ML Vial 2 MG IM (16:18)
[2022-07-14 16:51] LABS: Bedside Glucose 167 mg/dL (74-106)
[2022-07-14 18:55] LABS: Bacteria 0 SEEN /hpf (None Seen); Mucous, Urine 0 SEEN /hpf (<or=2+); Red Blood Cells-Urine 0 SEEN /hpf (0-5); Squamous Epithelial Cells - UA 0 SEEN /hpf (5-10); White Blood Cells 0 SEEN /hpf (0-5)
[2022-07-14 18:59] LABS: Color, Urine Straw (Yellow); Glucose, Dipstick Normal (Normal); Ketone-Dipstick Negative (Negative); Leukocyte Esterase-Dipstick Negative /ul (Negative); Nitrite-Dipstick Negative (Negative); Occult Blood-Urine Negative /ul (Negative); Protein-Dipstick 30 mg/dl (Negative); Urine Bilirubin Dipstick Negative (Negative); Urine Clarity Clear (Clear); Urine Urobilinogen Normal (Normal)
[2022-07-14] MEDS: Atorvastatin Calcium 40 MG Tablet PO (19:58)
[2022-07-14] MEDS: Mirtazapine 15 MG Tablet 7.5 MG PO (19:59)
[2022-07-14] MEDS: QUEtiapine 25 MG Tablet 37.5 MG PO (20:00)
[2022-07-14] MEDS: Insulin Glargine-YFGN 100 UNIT/ML Pen 12 UNIT SC (20:03)
[2022-07-14 20:36] LABS: Bedside Glucose 174 mg/dL (74-106)
--- NOTE | 2022-07-14 23:00 | NURSING ---
pt bladder scanned for 651cc. st cath at this time per orders for 700cc pale yellow urine
[2022-07-15] VITALS (7 sets, daily range): BP systolic 148–175; BP diastolic 54–68; PULSE 51–69; RESP 17–18; TEMP 36.6–36.9
[2022-07-15] MEDS: oxyCODONE 5 MG Tablet PO (03:25)
[2022-07-15] MEDS: Insulin Lispro 100 UNIT/ML INSULN.PEN 6 UNIT SC ×3 (06:21→16:54)
[2022-07-15] MEDS: hydrALAZINE 25 MG Tablet PO ×2 (06:22→13:55)
[2022-07-15] MEDS: Acetaminophen 500 MG Tablet 1000 MG PO ×2 (06:23→13:55)
[2022-07-15] MEDS: Carbidopa/Levodopa 25/100 Tablet PO ×3 (06:23→16:44)
[2022-07-15] MEDS: Levothyroxine 100 MCG Tablet PO (06:23)
[2022-07-15 07:20] LABS: Bedside Glucose 227 mg/dL (74-106)
[2022-07-15] MEDS: Menthol/Lanolin/Calamine/Znox 113 GM Tube 1 APPLIC TOPICAL ×2 (07:47→23:26)
[2022-07-15] MEDS: Glucerna Shake 120 ML LIQUID PO ×3 (07:48→16:45)
[2022-07-15] MEDS: NYSTATIN 500,000 UNIT/5 ML UDC 500000 UNIT PO ×3 (07:50→16:45)
[2022-07-15] MEDS: Calcium Carb/Vitamin D 1 TABLET Tablet 2 TABLET PO ×2 (07:50→16:44)
[2022-07-15] MEDS: Memantine Hydrochloride 5 MG Tablet PO (07:53)
[2022-07-15] MEDS: amLODIPine 5 MG Tablet PO (07:53)
[2022-07-15] MEDS: Metoprolol(XL)Succ 25 MG Tablet 75 MG PO (07:54)
[2022-07-15] MEDS: LINAGLIPTIN 5 MG TABLET PO (07:54)
[2022-07-15] MEDS: Senna/Docusate Sodium 1 Tablet 2 TABLET PO (07:54)
[2022-07-15] MEDS: Cholecalciferol (VIT D3) 25 MCG TABLET (1,000 UNITS) PO (07:54)
[2022-07-15] MEDS: Losartan Potassium 100 MG Tablet PO (07:55)
[2022-07-15] MEDS: Nystatin Powder 15gm Bottle 1 APPLIC TOPICAL ×2 (07:55→23:26)
--- NOTE | 2022-07-15 10:27 | CT_ITS ---
STUDY: CT BRAIN WITHOUT CONTRAST REASON FOR EXAM: Female, 81 years old. Fall, PRIOR BLEED RADIATION DOSAGE (If Supplied By Facility): CTDIvol = ( 44.99 ) mGy, DLP = ( 812.98 ) mGycm TECHNIQUE: Transaxial CT imaging of the brain was performed without administration of intravenous contrast material. Individualized dose optimization techniques were used for this CT. COMPARISON: July 08, 2022 CT head FINDINGS: Postoperative changes in the right scalp soft tissues. There is been a prior right-sided craniotomy. Normal calvarium. There is persistent dense calcification of the bilateral vertebral arteries bilateral cavernous carotid arteries. Deep to the right-sided craniotomy there is a focus of gas less with the prior study. There is a persistent fairly large right side extra-axial subdural collection that on image #30 measures up to 2.7 cm. In approximately the same level this is stable. There is persistent focal hyperdensity within this collection compatible with hemorrhage. There is a focus of low attenuation within the posterior aspect of the right temporal lobe bordering the occipital lobe stable since prior study compatible with prior injury and/or infarct. There is slight effacement of the right-sided ventricles compared to the left without significant shift. There is mild cerebral atrophy with widening of the extra-axial spaces and ventricular dilatation. There are areas of decreased attenuation within the white matter tracts of the supratentorial brain, consistent with microvascular disease changes. Normal basal ganglia and thalami. Normal brainstem. There is mild cerebellar atrophy. There is no intracranial hemorrhage. There are no findings of an acute ischemic infarction. Normal visualized paranasal sinuses. CT/Brain/Head without Contrast IMPRESSION: Stable head CT with persistent postoperative change status post craniotomy. Persistent sizable right-sided subdural collection measuring up to 2.7 cm with areas of hyperdensity compatible with acute on chronic subdural hemorrhage. Mild right hemispheric edema without significant shift. Electronically Signed: Evita Blake MD at 11:44 EST ,
--- NOTE | 2022-07-15 10:28 | NURSING ---
Notified Dr. Orourke of pt continuing to climb out of bed and chair and remaining confused. Received order for CT of brain without contrast.
[2022-07-15] MEDS: Haloperidol Lactate 5 MG/ML Vial 2 MG IM (10:31)
[2022-07-15 10:50] LABS: Bedside Glucose 219 mg/dL (74-106)
--- NOTE | 2022-07-15 11:08 | PCA ---
patients has been agitated this a.m. patient has repeatedly tried to climb out of bed and recliner moved patient to nurses station where patient was offer a snack and coffee patient proceeded to throw her cup of coffee onto and kick this tube sizer operator while this tube sizer operator was trying to keep patient from climbing out of chair and falling
[2022-07-15] MEDS: 0.9% Saline Lock 10 ML Syringe IV (14:02)
[2022-07-15] MEDS: QUEtiapine 25 MG Tablet PO (14:39)
--- NOTE | 2022-07-15 14:41 | NURSING ---
Received order from Dr. Orourke for 25 mg of Seroquel now, change HS Seroquel dose to 50mg @ HS, 12.5 mg Seroquel in AM @ 0600. BMP an CBC w/ diff tomorrow morning.
[2022-07-15 17:40] LABS: Bedside Glucose 235 mg/dL (74-106)
[2022-07-15] MEDS: Insulin Glargine-YFGN 100 UNIT/ML Pen 12 UNIT SC (23:25)
--- NOTE | 2022-07-15 23:50 | NURSING ---
Pt bladder scan for greater then 895. straight cath for 900
[2022-07-16] VITALS (7 sets, daily range): BP systolic 129–188; BP diastolic 54–65; PULSE 64–74; RESP 16–18; TEMP 36.4–36.6; O2SAT 98–100
[2022-07-16 00:06] LABS: Bedside Glucose 226 mg/dL (74-106)
[2022-07-16 06:28] LABS: Absolute Lymphocyte Count 2.55 X10^3/uL (0.83-4.51); Absolute Neutrophil Count 3.6 X10^3/uL (2.0-7.7); Basophil# 0.04 X10^3/uL; Basophil% 0.6 % (0-1); Eosinophil# 0.14 X10^3/uL; Eosinophils% 1.9 % (0-5); Hematocrit 34.6 % (37-47); Hemoglobin 10.4 g/dL (12.0-15.0); Lymphocyte # 2.55 X10^3/ul (0.83-4.51); Lymphocyte % 35.2 % (19-41); Mean Corp Hgb Conc 30.1 g/dL (32-36); Mean Corpuscular Volume 93.3 fL (81-99); Mean Platelet Vol. 10.4 fl (6.2-12.0); Monocyte# 0.85 X10^3/uL; Monocyte% 11.7 % (0-10); NRBC Flagged by Analyzer 0 % (0-5); Neutrophil # 3.62 X10^3/uL (2.7-7.7); Platelet Count 278 K/mm3 (150-450); RBC Distribution Width CV 16.6 % (11.6-14.6); RBC Distribution Width SD 57.3 fl (35.1-43.9); Red Blood Count 3.71 M/mm3 (4.2-5.4); White Blood Count 7.2 K/mm3 (4.4-11.0)
[2022-07-16] MEDS: Levothyroxine 100 MCG Tablet PO (06:31)
[2022-07-16] MEDS: Carbidopa/Levodopa 25/100 Tablet PO ×3 (06:31→16:49)
[2022-07-16] MEDS: hydrALAZINE 25 MG Tablet PO ×3 (06:31→19:51)
[2022-07-16] MEDS: Acetaminophen 500 MG Tablet 1000 MG PO ×3 (06:31→19:52)
[2022-07-16] MEDS: Insulin Lispro 100 UNIT/ML INSULN.PEN 6 UNIT SC ×3 (06:41→16:49)
[2022-07-16 06:51] LABS: Anion Gap 8 (5-15); BUN 15 mg/dL (7-18); BUN/Creat Ratio 18.6 RATIO (10-20); Calcium,Total 9.7 mg/dL (8.5-10.1); Chloride 103 mmol/L (98-107); Creatinine, Serum 0.81 mg/dL (0.55-1.02); EST Glomerular Filtration Rate 72 mL/min (>60); Est Glom Filt Rate - Afr Amer 87 mL/min (>60); Estimated Creatinine Clearance 50.99 ml/min; Glucose 223 mg/dL (74-106); Potassium 3.9 mmol/L (3.5-5.1); Sodium Level 141 mmol/L (136-145)
[2022-07-16 07:01] LABS: Bedside Glucose 213 mg/dL (74-106)
[2022-07-16] MEDS: Metoprolol(XL)Succ 25 MG Tablet 75 MG PO ×2 (07:46→19:51)
[2022-07-16] MEDS: Cholecalciferol (VIT D3) 25 MCG TABLET (1,000 UNITS) PO (07:46)
[2022-07-16] MEDS: amLODIPine 5 MG Tablet PO (07:46)
[2022-07-16] MEDS: NYSTATIN 500,000 UNIT/5 ML UDC 500000 UNIT PO ×4 (07:46→19:51)
[2022-07-16] MEDS: Senna/Docusate Sodium 1 Tablet 2 TABLET PO ×2 (07:46→19:51)
[2022-07-16] MEDS: Calcium Carb/Vitamin D 1 TABLET Tablet 2 TABLET PO ×2 (07:46→16:49)
[2022-07-16] MEDS: LINAGLIPTIN 5 MG TABLET PO (07:46)
[2022-07-16] MEDS: Memantine Hydrochloride 5 MG Tablet PO (07:47)
[2022-07-16] MEDS: Losartan Potassium 100 MG Tablet PO (07:48)
[2022-07-16] MEDS: Nystatin Powder 15gm Bottle 1 APPLIC TOPICAL ×2 (07:48→20:12)
[2022-07-16] MEDS: Menthol/Lanolin/Calamine/Znox 113 GM Tube 1 APPLIC TOPICAL ×2 (07:48→20:13)
[2022-07-16] MEDS: QUEtiapine 25 MG Tablet 12.5 MG PO (07:49)
[2022-07-16] MEDS: Glucerna Shake 120 ML LIQUID PO ×2 (09:54→14:08)
[2022-07-16 11:55] LABS: Bedside Glucose 270 mg/dL (74-106)
--- NOTE | 2022-07-16 12:11 | CT_ITS ---
STUDY: CT BRAIN WITHOUT CONTRAST REASON FOR EXAM: Female, 81 years old. Repeat d/t fall. PRIOR BLEED RADIATION DOSAGE (If Supplied By Facility): CTDIvol = ( 44.99 ) mGy, DLP = ( 779.24 ) mGycm TECHNIQUE: Transaxial CT imaging of the brain was performed without administration of intravenous contrast material. Individualized dose optimization techniques were used for this CT. COMPARISON: 07/15/2022 FINDINGS: Normal soft tissue structures. There are some stable postsurgical changes consistent with prior right frontal craniotomy. There is a stable acute on chronic right subdural hematoma measuring up to 2.4 cm in diameter. There is a stable right to left midline shift of 2 mm. There is mild cerebral atrophy with widening of the extra-axial spaces and ventricular dilatation. There are stable low-attenuation foci within the right frontal and right occipital lobes . There are areas of decreased attenuation within the white matter tracts of the supratentorial brain, consistent with microvascular disease changes. Normal basal ganglia and thalami. Normal brainstem. There is mild cerebellar atrophy. There are peripheral calcifications of the visualized vertebral and internal carotid arteries There is no intracranial hemorrhage. There are no findings of an acute ischemic infarction. Normal visualized paranasal sinuses. CT/Brain/Head without Contrast IMPRESSION: Stable right-sided acute on chronic subdural hemorrhage with a stable 2 mm right to left midline shift. Electronically Signed: Jany Lazo MD at 12:53 EST ,
[2022-07-16] MEDS: 0.9% Saline Lock 10 ML Syringe IV (16:49)
[2022-07-16 17:15] LABS: Bedside Glucose 254 mg/dL (74-106)
[2022-07-16] MEDS: Atorvastatin Calcium 40 MG Tablet PO (19:50)
[2022-07-16] MEDS: Mirtazapine 15 MG Tablet 7.5 MG PO (19:51)
[2022-07-16] MEDS: QUEtiapine 25 MG Tablet 50 MG PO (19:51)
[2022-07-16] MEDS: Insulin Glargine-YFGN 100 UNIT/ML Pen 12 UNIT SC (21:51)
[2022-07-16 22:20] LABS: Bedside Glucose 260 mg/dL (74-106)
[2022-07-17] VITALS (10 sets, daily range): BP systolic 151–179; BP diastolic 51–69; PULSE 55–62; RESP 16; TEMP 36.5–36.7; O2SAT 98–100
[2022-07-17] MEDS: 0.9% Saline Lock 10 ML Syringe IV ×2 (00:24→11:45)
[2022-07-17] MEDS: oxyCODONE 5 MG Tablet PO (00:25)
--- NOTE | 2022-07-17 00:25 | NURSING ---
Pt yelling out but also using call light, c/o pain, head, neck and also from catheter. Repositioned in bed for comfort and medicated with Oxy ir per PRN order. HOB remains elevated, music on to help pt relax. Call light in reach, will continue to monitor.
[2022-07-17] MEDS: Levothyroxine 100 MCG Tablet PO (06:10)
[2022-07-17] MEDS: QUEtiapine 25 MG Tablet 12.5 MG PO (06:10)
[2022-07-17] MEDS: Acetaminophen 500 MG Tablet 1000 MG PO ×3 (06:10→20:02)
[2022-07-17] MEDS: hydrALAZINE 25 MG Tablet PO ×3 (06:11→20:03)
[2022-07-17] MEDS: Alendronate Sodium 70 MG Tablet PO (06:12)
[2022-07-17] MEDS: Carbidopa/Levodopa 25/100 Tablet PO ×3 (06:13→16:49)
[2022-07-17 06:55] LABS: Bedside Glucose 194 mg/dL (74-106)
[2022-07-17] MEDS: Insulin Lispro 100 UNIT/ML INSULN.PEN 6 UNIT SC ×3 (07:58→16:49)
[2022-07-17] MEDS: Calcium Carb/Vitamin D 1 TABLET Tablet 2 TABLET PO ×2 (08:00→16:49)
[2022-07-17] MEDS: Menthol/Lanolin/Calamine/Znox 113 GM Tube 1 APPLIC TOPICAL ×2 (08:00→20:01)
[2022-07-17] MEDS: Nystatin Powder 15gm Bottle 1 APPLIC TOPICAL ×2 (08:01→20:02)
[2022-07-17] MEDS: Losartan Potassium 100 MG Tablet PO (08:01)
[2022-07-17] MEDS: NYSTATIN 500,000 UNIT/5 ML UDC 500000 UNIT PO ×4 (08:02→20:01)
[2022-07-17] MEDS: Senna/Docusate Sodium 1 Tablet 2 TABLET PO ×2 (08:02→20:04)
[2022-07-17] MEDS: amLODIPine 5 MG Tablet PO ×2 (08:02→14:24)
[2022-07-17] MEDS: Memantine Hydrochloride 5 MG Tablet PO (08:02)
[2022-07-17] MEDS: Metoprolol(XL)Succ 25 MG Tablet 75 MG PO ×2 (08:02→20:03)
[2022-07-17] MEDS: LINAGLIPTIN 5 MG TABLET PO (08:03)
[2022-07-17] MEDS: Cholecalciferol (VIT D3) 25 MCG TABLET (1,000 UNITS) PO (08:03)
--- NOTE | 2022-07-17 09:30 | CASEMGMT ---
Addendum entered by Naty Pearl 07/18/22 09:12: Family provided completed Medicaid application. Faxed to [employer]. Awaiting SNF choices. Original Note: Social Work Received voicemail from nursing requesting call to SRINIVAS to update on insurance information. Contacted SRINIVAS to follow up. SRINIVAS stated she is now needing to have surgery and requesting pt to transfer to SNF for 6 weeks since SRINIVAS cannot care for pt. Explained this worker sent a list of SNFs to son and insurance update is today. SRINIVAS stated pt cannot pay privately for a SNF. Educated to Medicaid. SRINIVAS explained some of pt's finances and pt has property and bills from [place] residency. However, monthly income and other resources appear within limits. SRINIVAS is not aware of bank account amounts. SW educated to emailing SANDIE application to SRINIVAS to assist with completing today. Encouraged to return to this worker today, along with SNF choices. SRINIVAS expressed understanding. SW to continue to follow. Naty Pearl, SAMI MILLERW
[2022-07-17 11:30] LABS: Bedside Glucose 188 mg/dL (74-106)
[2022-07-17] MEDS: hydrALAZINE 20 MG/ML Vial 10 MG IV (11:42)
--- NOTE | 2022-07-17 12:00 | PCM.PROGNOTE ---
Subjective Subjective Afebrile VSS-systolic blood pressures are significantly elevated. Maintaining appropriate oxygen saturation on RA Oral intake is good. She ate 75 to 100% of her breakfast today and had 75 to 100% of her supper last night. Blood sugar record was reviewed and the blood sugars have been elevated. Discussed with nursing - has started to use the call light but, she is still yelling out. Reviewed the PT/OT/ST notes Medication list reviewed. UA was negative for infection on Sunday. She fell out of bed with the rails up over the weekend trying to crawl over the rails. CT of head showed acute on chronic SDH on the R with no midline shift. Repeat 24 Hours later is stable. Had to go up on the Seroquel again for constant screaming/agitation. Has been afebrile. All lab was personally reviewed. BMP on 07/16/2022 shows normal electrolytes with a BUN of 15 and a creatinine of 0.81. FBS was 223. CBC showed a normal white blood cell count of 7.2 with 50% neutrophils. Hemoglobin is stable at 10.4. Platelets are within normal limits. She started to retain urine again and initially we were straight cathing but after 48H she was still retaining and a Villaseñor was inserted. Will do another voiding trial in 3-5 days. Objective Data Objective Data Vital Signs: Vital Signs Temp Pulse Resp BP Pulse Ox O2 Del Method O2 Flow Rate 97.7 F L 62 16 179/69 H 98 Room Air 97 07/17/22 08:35 07/17/22 11:42 07/17/22 08:35 07/17/22 11:42 07/17/22 08:35 07/17/22 08:35 07/15/22 07:38 Oxygen Flow Rate (L/min) 97 Oxygen Delivery Method Room Air Weight: 179 lb 0.246 oz Body Mass Index (BMI) 28.8 Intake & Output: Intake and Output for Last 24 Hours 07/15/22 07/16/22 07/17/22 23:59 23:59 23:59 Intake Total 1310 / 1310 880 / 880 320 / 320 Output Total 1200 / 1200 275 / 275 1450 / 1450 Balance 110 / 110 605 / 605 -1130 / -1130 Lab / Micro Data Result Diagrams: 07/16/22 05:33 07/16/22 05:33 Labs: Laboratory Results - last 24 hr 07/16/22 16:45: POC Glucose 254 H 07/16/22 21:50: POC Glucose 260 H 07/17/22 06:30: POC Glucose 194 H 07/17/22 11:08: POC Glucose 188 H Micro: Microbiology 07/04/22 15:00 Urine, Catheterized Urine Culture - Final Culture exhibits no growth. Radiography Diagnostic Testing: Radiology Impression Brain CT 07/16/22 12:11 IMPRESSION: Stable right-sided acute on chronic subdural hemorrhage with a stable 2 mm right to left midline shift. Electronically Signed: Jany Lazo MD at 12:53 EST , Physical Exam Const alert Constitutional Narrative: Sleeps a lot during the day off and on. Also sleeping well at night. Resp clear to auscultation bilaterally Effort and Inspection: Negative for tachypneic or labored Cardio regular rate, regular rhythm and no gallops GI normal to inspection, nondistended, normoactive bowel sounds and soft to palpation GI Narrative: No guarding with palpation. Extremity General Extremity: Negative for edema Skin General Skin Exam: no breakdown Rashes: no rashes Assessment & Plan Assessment/Plan (1) Debility: (2) Status post craniotomy: (3) Acute on chronic intracranial subdural hematoma: (4) Diabetes mellitus type 2, insulin dependent: (5) Urine retention: (6) Parkinson's disease: (7) Dementia with behavioral disturbance: PLAN: Plan 1. Continue therapy. Will discuss on TEAM rounds today. If she is not getting 3 hours in a day will need to transfer to an SNF or home. Will discuss with her dtr-in-law who is her caregiver at home. 2. EKG to check QT 3. Add a sliding scale 4. Increase the Norvasc to 10 mg/day 5. Voiding trial in the a.m. Charges/Coding Visit Charges Inpatient E&M: 76364 Subs Hosp L2
--- NOTE | 2022-07-17 12:18 | EKG12_ITS ---
Test Reason : Blood Pressure : / mmHG Vent. Rate : 064 BPM Atrial Rate : 064 BPM P-R Int : 168 ms QRS Dur : 084 ms QT Int : 432 ms P-R-T Axes : 106 039 123 degrees QTc Int : 445 ms Normal sinus rhythm T wave abnormality, consider inferolateral ischemia Abnormal ECG No previous ECGs available Confirmed by IRA MARRUFO, CIRO ([id number]), food editor SNEHA BRITO ([id number]) on 07/18/2022 11:06:24 AM Referred By: ARELIS Confirmed By:CIRO ROTH MD
[2022-07-17 16:46] LABS: Bedside Glucose 216 mg/dL (74-106)
[2022-07-17] MEDS: Insulin Lispro 100 UNIT/ML INSULN.PEN SC (16:49)
[2022-07-17] MEDS: QUEtiapine 25 MG Tablet 50 MG PO (20:02)
[2022-07-17] MEDS: Atorvastatin Calcium 40 MG Tablet PO (20:02)
[2022-07-17] MEDS: Mirtazapine 15 MG Tablet 7.5 MG PO (20:04)
[2022-07-17] MEDS: Insulin Glargine-YFGN 100 UNIT/ML Pen 12 UNIT SC (21:43)
[2022-07-17 22:10] LABS: Bedside Glucose 206 mg/dL (74-106)
[2022-07-18] VITALS (8 sets, daily range): BP systolic 140–145; BP diastolic 45–66; PULSE 53–66; RESP 16–18; TEMP 36.5–36.6; O2SAT 96–98
[2022-07-18] MEDS: 0.9% Saline Lock 10 ML Syringe IV ×2 (06:45→20:18)
[2022-07-18 06:46] LABS: Bedside Glucose 212 mg/dL (74-106)
[2022-07-18] MEDS: Levothyroxine 100 MCG Tablet PO (06:47)
[2022-07-18] MEDS: Acetaminophen 500 MG Tablet 1000 MG PO ×3 (06:47→21:19)
[2022-07-18] MEDS: Carbidopa/Levodopa 25/100 Tablet PO ×3 (06:47→16:38)
[2022-07-18] MEDS: hydrALAZINE 25 MG Tablet PO ×3 (06:47→20:33)
[2022-07-18] MEDS: QUEtiapine 25 MG Tablet 12.5 MG PO (06:48)
[2022-07-18] MEDS: Insulin Lispro 100 UNIT/ML INSULN.PEN 6 UNIT SC (08:04)
[2022-07-18] MEDS: Insulin Lispro 100 UNIT/ML INSULN.PEN SC ×3 (08:04→16:38)
[2022-07-18] MEDS: amLODIPine 10 MG Tablet PO (08:54)
[2022-07-18] MEDS: Metoprolol(XL)Succ 25 MG Tablet 75 MG PO ×2 (08:54→20:31)
[2022-07-18] MEDS: Memantine Hydrochloride 5 MG Tablet PO (08:54)
[2022-07-18] MEDS: Senna/Docusate Sodium 1 Tablet 2 TABLET PO ×2 (08:54→20:29)
[2022-07-18] MEDS: LINAGLIPTIN 5 MG TABLET PO (08:54)
[2022-07-18] MEDS: Cholecalciferol (VIT D3) 25 MCG TABLET (1,000 UNITS) PO (08:54)
[2022-07-18] MEDS: Losartan Potassium 100 MG Tablet PO (08:54)
[2022-07-18] MEDS: Calcium Carb/Vitamin D 1 TABLET Tablet 2 TABLET PO ×2 (08:55→16:39)
[2022-07-18] MEDS: NYSTATIN 500,000 UNIT/5 ML UDC 500000 UNIT PO ×3 (08:55→20:29)
[2022-07-18] MEDS: Nystatin Powder 15gm Bottle 1 APPLIC TOPICAL ×2 (08:57→20:30)
[2022-07-18] MEDS: Menthol/Lanolin/Calamine/Znox 113 GM Tube 1 APPLIC TOPICAL ×2 (08:57→20:29)
--- NOTE | 2022-07-18 11:03 | PCM.PROGNOTE ---
Subjective Subjective Afebrile VSS-blood pressure is better controlled today with the increase in the Norvasc to 10 mg daily. Current blood pressure is 144/45 and her heart rate has been ranging from 53-62. Maintaining appropriate oxygen saturation on RA Oral intake is good Discussed with nursing - no change in the problems we have been having. She is doing therapy Reviewed the PT/OT/ST notes -still requiring maximum assistance with bathing and moderate assistance with grooming. She is max assist for upper body dressing and total assistance for lower body dressing. She required moderate assistance to transition to the edge of bed this morning. She was drowsy this morning and kept falling asleep with OT. Was also lethargic with PT. Not making much progress with therapy over the past week. When we attempt to decrease sedation the agitation and yelling increase. she has fallen twice since being on rehab despite having alarms on and frequent visits by nursing. Medication list reviewed. Cristin denies pain today and also denies cough or SOB. Ate 75-100% of her breakfast. She does not appear to be in any distress. she perseverates on getting out of bed and into a chair but, she is not safe in a chair without a sitter or family with her at all times. BS's have been higher since she is eating well now. She remains Afebrile. WBC on Sunday was normal. Objective Data Objective Data Vital Signs: Vital Signs Temp Pulse Resp BP Pulse Ox O2 Del Method O2 Flow Rate 97.8 F 53 L 16 144/45 H 96 Room Air 97 07/18/22 08:11 07/18/22 08:54 07/18/22 08:11 07/18/22 08:54 07/18/22 08:11 07/18/22 10:00 07/15/22 07:38 Oxygen Flow Rate (L/min) 97 Oxygen Delivery Method Room Air Weight: 179 lb 0.246 oz Body Mass Index (BMI) 28.8 Intake & Output: Intake and Output for Last 24 Hours 07/16/22 07/17/22 07/18/22 23:59 23:59 23:59 Intake Total 880 / 880 920 / 920 380 / 380 Output Total 275 / 275 1999 / 1999 1130 / 1130 Balance 605 / 605 -1080 / -1080 -750 / -750 Lab / Micro Data Result Diagrams: 07/16/22 05:33 07/16/22 05:33 Labs: Laboratory Results - last 24 hr 07/17/22 11:08: POC Glucose 188 H 07/17/22 15:57: POC Glucose 216 H 07/17/22 21:41: POC Glucose 206 H 07/18/22 06:17: POC Glucose 212 H Micro: Microbiology 07/04/22 15:00 Urine, Catheterized Urine Culture - Final Culture exhibits no growth. Physical Exam Const Constitutional Narrative: She was alert when I saw her this AM but then went to sleep sitting in the nurses station. HEENT normocephalic HEENT Narrative: Resolving bruising of the Left face and neck. Urine in the Villaseñor bag appears clear but, concentrated. Mouth: dry mucous membranes Resp clear to auscultation bilaterally Cardio regular rate and no gallops Cardio Narrative: Bradycardic GI normal to inspection, nondistended, normoactive bowel sounds and soft to palpation GI Narrative: No guarding with palpation. She has had 3 BM's since the and they have all been small. Inspection: Negative for abdominal distention Extremity General Extremity: Negative for edema Skin General Skin Exam: no breakdown Rashes: no rashes Assessment & Plan Assessment/Plan (1) Debility: (2) Status post craniotomy: (3) Acute on chronic intracranial subdural hematoma: (4) Diabetes mellitus type 2, insulin dependent: (5) Dementia with behavioral disturbance: (6) Urine retention: PLAN: Plan 1. Check a KUB today......constipation may be contributing to urine retention. 2. Continue therapy. SW is working on placement. Has not really made significant progress in the past 7-10 days. Behavior has been a big issue. when I decrease the sedation she gets agitated, yells and throws things. She has now been on the Remeron for 8 days now and this is likely contributing to the lethargy. Will cut back on the HS Seroquel and give it at 1900. Continue the 12.5 mg in the AM. 3. Add Miralax to the senna and encourage increased water intake. 4. DC Villaseñor for voiding trial today. Check a UA today with discontinuation of the Villaseñor. Charges/Coding Visit Charges Inpatient E&M: 42729 Subs Hosp L2
[2022-07-18 11:20] LABS: Bedside Glucose 205 mg/dL (74-106)
[2022-07-18] MEDS: Polyethylene Glycol 3350 17 GM PACKET PO (12:44)
[2022-07-18] MEDS: Insulin Lispro 100 UNIT/ML INSULN.PEN 8 UNIT SC ×2 (12:45→16:38)
--- NOTE | 2022-07-18 14:34 | RAD_ITS ---
We are attempting to reach an attending provider to discuss findings. An addendum with communication details will be sent when the communication is complete. STUDY: X-RAY - ABDOMEN/PELVIS REASON FOR EXAM: Female, 81 years old. constipation/urine retention TECHNIQUE: 2 views of the abdomen were obtained. COMPARISON: None. FINDINGS: There is questionable consolidation at the left lung base. There is an unremarkable bowel gas pattern. There is no demonstrated free abdominal air. The visualized liver, spleen and kidneys are grossly normal in size and morphology. Normal soft tissue structures. Normal visualized osseous structures. RAD/Abdomen Single View (Portable) IMPRESSION: Nonspecific bowel gas without evidence for obstruction. Fecal retention is identified. Questionable consolidation at the left lung base. X-ray of the chest PA and lateral may be helpful for further evaluation. Electronically Signed: Anand Oropeza MD at 15:10 EST ,
[2022-07-18 15:13] LABS: Bacteria 0 SEEN /hpf (None Seen); Mucous, Urine 0 SEEN /hpf (<or=2+); Squamous Epithelial Cells - UA 0 SEEN /hpf (5-10)
[2022-07-18 15:15] LABS: Color, Urine Yellow (Yellow); Glucose, Dipstick 100 mg/dl (Normal); Ketone-Dipstick 5 mg/dl (Negative); Leukocyte Esterase-Dipstick 100 /ul (Negative); Nitrite-Dipstick Negative (Negative); Occult Blood-Urine 10 /ul (Negative); Protein-Dipstick 30 mg/dl (Negative); Specific Gravity, Urine 1.015 (1.002-1.030); Urine Bilirubin Dipstick Negative (Negative); Urine Clarity Clear (Clear); Urine Urobilinogen Normal (Normal); Urine pH 6.5 (5.0 - 8.0)
[2022-07-18 15:22] LABS: Red Blood Cells-Urine 0-5 SEEN /hpf (0-5); White Blood Cells 0-5 SEEN /hpf (0-5)
[2022-07-18] MEDS: Bisacodyl 5 MG Tablet 10 MG PO (16:39)
[2022-07-18 17:00] LABS: Bedside Glucose 230 mg/dL (74-106)
[2022-07-18] MEDS: Mirtazapine 15 MG Tablet 7.5 MG PO (20:13)
[2022-07-18] MEDS: QUEtiapine 25 MG Tablet 37.5 MG PO (20:13)
[2022-07-18] MEDS: Bisacodyl 10 MG Suppository RC (20:18)
[2022-07-18] MEDS: Atorvastatin Calcium 40 MG Tablet PO (20:30)
[2022-07-18] MEDS: Insulin Glargine-YFGN 100 UNIT/ML Pen 12 UNIT SC (21:25)
[2022-07-18 21:30] LABS: Bedside Glucose 193 mg/dL (74-106)
[2022-07-19] VITALS (8 sets, daily range): BP systolic 122–176; BP diastolic 53–65; PULSE 55–60; RESP 15–18; TEMP 36–36.4; O2SAT 95–97
[2022-07-19] MEDS: hydrALAZINE 25 MG Tablet PO ×3 (05:07→20:41)
[2022-07-19] MEDS: Acetaminophen 500 MG Tablet 1000 MG PO ×3 (05:07→20:39)
[2022-07-19] MEDS: Levothyroxine 100 MCG Tablet PO (05:08)
[2022-07-19] MEDS: QUEtiapine 25 MG Tablet 12.5 MG PO (06:36)
[2022-07-19] MEDS: Carbidopa/Levodopa 25/100 Tablet PO ×3 (06:37→17:26)
[2022-07-19 06:40] LABS: Bedside Glucose 190 mg/dL (74-106)
[2022-07-19] MEDS: Insulin Lispro 100 UNIT/ML INSULN.PEN SC ×3 (07:44→17:26)
[2022-07-19] MEDS: Insulin Lispro 100 UNIT/ML INSULN.PEN 8 UNIT SC ×3 (07:45→17:27)
[2022-07-19] MEDS: Cholecalciferol (VIT D3) 25 MCG TABLET (1,000 UNITS) PO (07:48)
[2022-07-19] MEDS: Calcium Carb/Vitamin D 1 TABLET Tablet 2 TABLET PO ×2 (07:48→17:26)
[2022-07-19] MEDS: Memantine Hydrochloride 5 MG Tablet PO (07:48)
[2022-07-19] MEDS: Losartan Potassium 100 MG Tablet PO (07:48)
[2022-07-19] MEDS: LINAGLIPTIN 5 MG TABLET PO (07:48)
[2022-07-19] MEDS: Senna/Docusate Sodium 1 Tablet 2 TABLET PO ×2 (07:48→20:40)
[2022-07-19] MEDS: amLODIPine 10 MG Tablet PO (07:48)
[2022-07-19] MEDS: Polyethylene Glycol 3350 17 GM PACKET PO (07:48)
[2022-07-19] MEDS: Menthol/Lanolin/Calamine/Znox 113 GM Tube 1 APPLIC TOPICAL ×2 (07:49→20:42)
[2022-07-19] MEDS: Nystatin Powder 15gm Bottle 1 APPLIC TOPICAL ×2 (07:49→20:40)
[2022-07-19] MEDS: NYSTATIN 500,000 UNIT/5 ML UDC 500000 UNIT PO ×4 (07:49→20:40)
[2022-07-19] MEDS: Metoprolol(XL)Succ 25 MG Tablet 75 MG PO ×2 (11:19→20:39)
[2022-07-19 11:30] LABS: Bedside Glucose 212 mg/dL (74-106)
[2022-07-19] MEDS: 0.9% Saline Lock 10 ML Syringe IV ×2 (15:52→20:46)
[2022-07-19 16:15] LABS: Bedside Glucose 162 mg/dL (74-106)
[2022-07-19] MEDS: Mirtazapine 15 MG Tablet 7.5 MG PO (19:44)
[2022-07-19] MEDS: QUEtiapine 25 MG Tablet 37.5 MG PO (19:46)
[2022-07-19] MEDS: Atorvastatin Calcium 40 MG Tablet PO (20:40)
[2022-07-19] MEDS: Insulin Glargine-YFGN 100 UNIT/ML Pen 12 UNIT SC (20:41)
[2022-07-19 20:55] LABS: Bedside Glucose 202 mg/dL (74-106)
[2022-07-20] VITALS (10 sets, daily range): BP systolic 140–187; BP diastolic 55–72; PULSE 58–79; RESP 16–19; TEMP 36.5–36.7; O2SAT 94–98
--- NOTE | 2022-07-20 00:15 | NURSING ---
PT PLACED ON BEDPAN AND PASSES NO URINE. BLADDER SCAN READS GREATER THAN 500 ML. PT STRAIGHT CATHED FOR 450 ML OF CLEAR, YELLOW URINE WITH NORMAL ODOR. PT TOLERATES PROCEDURE WELL.
[2022-07-20] MEDS: QUEtiapine 25 MG Tablet 12.5 MG PO (06:49)
[2022-07-20] MEDS: Acetaminophen 500 MG Tablet 1000 MG PO ×3 (06:49→20:22)
[2022-07-20] MEDS: Carbidopa/Levodopa 25/100 Tablet PO ×3 (06:49→16:01)
[2022-07-20] MEDS: Levothyroxine 100 MCG Tablet PO (06:49)
[2022-07-20] MEDS: hydrALAZINE 25 MG Tablet PO ×3 (06:50→20:21)
[2022-07-20] MEDS: hydrALAZINE 20 MG/ML Vial 10 MG IV (06:57)
[2022-07-20] MEDS: 0.9% Saline Lock 10 ML Syringe IV ×2 (06:59→16:11)
[2022-07-20 07:10] LABS: Bedside Glucose 199 mg/dL (74-106)
[2022-07-20] MEDS: Menthol/Lanolin/Calamine/Znox 113 GM Tube 1 APPLIC TOPICAL ×2 (07:42→20:22)
[2022-07-20] MEDS: Nystatin Powder 15gm Bottle 1 APPLIC TOPICAL ×2 (07:42→20:22)
[2022-07-20] MEDS: Senna/Docusate Sodium 1 Tablet 2 TABLET PO (07:43)
[2022-07-20] MEDS: NYSTATIN 500,000 UNIT/5 ML UDC 500000 UNIT PO ×3 (07:43→20:21)
[2022-07-20] MEDS: Losartan Potassium 100 MG Tablet PO (07:43)
[2022-07-20] MEDS: Metoprolol(XL)Succ 25 MG Tablet 75 MG PO ×2 (07:43→20:22)
[2022-07-20] MEDS: Cholecalciferol (VIT D3) 25 MCG TABLET (1,000 UNITS) PO (07:44)
[2022-07-20] MEDS: Memantine Hydrochloride 5 MG Tablet PO (07:45)
[2022-07-20] MEDS: Calcium Carb/Vitamin D 1 TABLET Tablet 2 TABLET PO ×2 (07:45→16:01)
[2022-07-20] MEDS: oxyCODONE 5 MG Tablet PO ×2 (07:46→16:11)
[2022-07-20] MEDS: LINAGLIPTIN 5 MG TABLET PO (07:48)
[2022-07-20] MEDS: Polyethylene Glycol 3350 17 GM PACKET PO (07:48)
[2022-07-20] MEDS: amLODIPine 10 MG Tablet PO (07:51)
[2022-07-20] MEDS: Insulin Lispro 100 UNIT/ML INSULN.PEN 8 UNIT SC ×3 (07:52→16:11)
[2022-07-20] MEDS: Insulin Lispro 100 UNIT/ML INSULN.PEN SC ×3 (07:53→16:10)
[2022-07-20] MEDS: Haloperidol Lactate 5 MG/ML Vial 2 MG IM (08:12)
--- NOTE | 2022-07-20 08:51 | NURSING ---
Patient given IM haldol per order for increased agitation, combative with staff, threw breakfast food at staff, screaming. Medication ineffective, behavior continues despite staff 1:1, offered fluids, repositioned, toileting.
[2022-07-20 11:10] LABS: Bedside Glucose 177 mg/dL (74-106)
[2022-07-20 16:26] LABS: Bedside Glucose 160 mg/dL (74-106)
[2022-07-20] MEDS: QUEtiapine 25 MG Tablet 37.5 MG PO (20:21)
[2022-07-20] MEDS: Mirtazapine 15 MG Tablet 7.5 MG PO (20:21)
[2022-07-20] MEDS: Atorvastatin Calcium 40 MG Tablet PO (20:22)
[2022-07-20] MEDS: Insulin Glargine-YFGN 100 UNIT/ML Pen 12 UNIT SC (21:56)
[2022-07-20 22:25] LABS: Bedside Glucose 137 mg/dL (74-106)
[2022-07-21] VITALS (7 sets, daily range): BP systolic 131–158; BP diastolic 37–54; PULSE 58–61; RESP 16; TEMP 36.6–36.7; O2SAT 94–98
[2022-07-21] MEDS: QUEtiapine 25 MG Tablet 12.5 MG PO (05:46)
[2022-07-21] MEDS: Acetaminophen 500 MG Tablet 1000 MG PO ×3 (05:46→20:06)
[2022-07-21] MEDS: Levothyroxine 100 MCG Tablet PO (05:47)
[2022-07-21] MEDS: Carbidopa/Levodopa 25/100 Tablet PO ×3 (05:48→16:41)
[2022-07-21] MEDS: Insulin Lispro 100 UNIT/ML INSULN.PEN SC ×3 (07:29→16:38)
[2022-07-21 07:30] LABS: Bedside Glucose 181 mg/dL (74-106)
[2022-07-21] MEDS: Insulin Lispro 100 UNIT/ML INSULN.PEN 8 UNIT SC ×3 (07:30→16:39)
[2022-07-21] MEDS: oxyCODONE 5 MG Tablet PO ×2 (07:30→16:44)
--- NOTE | 2022-07-21 07:30 | NURSING ---
Pt calls out for help x3 near the end of the shift. During initial episode, pt thought her dental insurance rates were too high. Second episode pt verbalized something related to billing. Another staff member checked on pt fort the third episode. Staff to continue to monitor.
[2022-07-21] MEDS: Cholecalciferol (VIT D3) 25 MCG TABLET (1,000 UNITS) PO (07:31)
[2022-07-21] MEDS: Memantine Hydrochloride 5 MG Tablet PO (07:31)
[2022-07-21] MEDS: Menthol/Lanolin/Calamine/Znox 113 GM Tube 1 APPLIC TOPICAL ×2 (07:31→20:04)
[2022-07-21] MEDS: Nystatin Powder 15gm Bottle 1 APPLIC TOPICAL ×2 (07:31→20:05)
[2022-07-21] MEDS: amLODIPine 10 MG Tablet PO (07:31)
[2022-07-21] MEDS: Calcium Carb/Vitamin D 1 TABLET Tablet 2 TABLET PO ×2 (07:31→16:41)
[2022-07-21] MEDS: Metoprolol(XL)Succ 25 MG Tablet 75 MG PO ×2 (07:32→20:05)
[2022-07-21] MEDS: LINAGLIPTIN 5 MG TABLET PO (07:32)
[2022-07-21] MEDS: NYSTATIN 500,000 UNIT/5 ML UDC 500000 UNIT PO ×3 (07:33→20:04)
[2022-07-21] MEDS: Losartan Potassium 100 MG Tablet PO (07:33)
[2022-07-21 12:06] LABS: Bedside Glucose 157 mg/dL (74-106)
--- NOTE | 2022-07-21 12:36 | CASEMGMT ---
Addendum entered by Naty Pearl 07/21/22 16:34: Referrals made to memory care units: SW and W. Son did not want [facility]. Original Note: Social Work IDT met with patient and son for Team meeting. Discussed patient's progress in PT/OT/ST/SN. Educated [facility] with [employer] 07/24 and continued stay is not guaranteed with each review. IDT continues to recommend SNF and suggesting memory care unit. Inquired to son about SNF choices and educated to memory care SNFs. Son still considering having pt return home. Dr spoke at length to recommendations of SNF, but suggested if pt DCs home to have assistance from palliative or hospice services. SW offered resources but reiterated plans to be given to this worker prior to insurance update 07/24. Son expressed understanding and appreciative of information from Team. Will continue to follow. Naty Pearl, SAMI BELL
[2022-07-21] MEDS: hydrALAZINE 25 MG Tablet PO ×2 (13:19→20:05)
[2022-07-21] MEDS: 0.9% Saline Lock 10 ML Syringe IV (13:22)
--- NOTE | 2022-07-21 16:16 | PCM.PROGNOTE ---
Subjective Subjective Cristin was seen on team rounds today. Her son Claudette was present in the room. Afebrile VSS - systolic BP is elevated, Amlodipine recently increased......she has PRN medication ordered. Maintaining appropriate oxygen saturation on RA Oral intake is good Discussed with nursing - Sometimes cooperative, sometimes refuses therapy. Yelling out a lot when she is alone and not getting attention. Does better when sitting in the nursing station. No new falls since last Sunday. Reviewed the PT/OT/ST notes Medication list reviewed. Denies POPE. She has some Left shoulder pain at times. Denies CP, SOB, lightheadedness. She is not coughing and has no labored breathing. Had a few BM's after laxative. Miralax has been added to the Senna BID. Objective Data Objective Data Vital Signs: Vital Signs Temp Pulse Resp BP Pulse Ox O2 Del Method O2 Flow Rate 97.8 F 61 16 145/48 H 94 Room Air 97 07/21/22 07:22 07/21/22 13:19 07/21/22 07:22 07/21/22 13:19 07/21/22 07:22 07/20/22 20:16 07/15/22 07:38 Oxygen Flow Rate (L/min) 97 Oxygen Delivery Method Room Air Weight: 149 lb 14.629 oz Body Mass Index (BMI) 28.8 Intake & Output: Intake and Output for Last 24 Hours 07/19/22 07/20/22 07/21/22 23:59 23:59 23:59 Intake Total 1420 / 1420 920 / 1000 680 / 680 Output Total 1250 / 1250 Balance 1420 / 970 -330 / -250 680 / 680 Lab / Micro Data Result Diagrams: 07/16/22 05:33 07/16/22 05:33 Labs: Laboratory Results - last 24 hr 07/20/22 16:05: POC Glucose 160 H 07/20/22 21:55: POC Glucose 137 H 07/21/22 07:12: POC Glucose 181 H 07/21/22 11:45: POC Glucose 157 H Micro: Microbiology 07/04/22 15:00 Urine, Catheterized Urine Culture - Final Culture exhibits no growth. Physical Exam Const alert and no apparent distress Constitutional Narrative: She is lying in the bed and she is eating while we are talking with her. She is feeding herself. Sometimes she is calm and cooperative. At other times she is agitated, yelling and restless. She seems to do better when she is out of her room and with other people. I suspect she gets lonely in her room and she likes the company. Eyes PERRL and EOMs intact bilaterally Resp normal respiratory effort, normal air movement and clear to auscultation bilaterally Resp Narrative: Able to take deep breaths when I ask her to. No conversational dyspnea. Effort and Inspection: Negative for tachypneic Cardio no murmurs and no gallops Cardio Narrative: regular rhythm with HR in the low 60's while in bed today. GI normal to inspection, nondistended, normoactive bowel sounds, soft to palpation and non-tender GI Narrative: No guarding. Extremity no calf tenderness General Extremity: Negative for cyanosis or edema Skin General Skin Exam: no breakdown Rashes: no rashes Assessment & Plan Assessment/Plan (1) Debility: PLAN: Continue therapy. Not making progress with therapy. (2) Acute on chronic intracranial subdural hematoma: PLAN: No change in mental status in the past week since her last fall. (3) Status post craniotomy: PLAN: Healing well with no sign infection. (4) Diabetes mellitus type 2, insulin dependent: PLAN: Appetite and intake has increased with the addition of Remeron. Will continue to adjust insulin accordingly. (5) Hypertension: PLAN: Systolic is high unless she is sleeping and then it within goal. (6) Dementia with behavioral disturbance: PLAN: HS Seroquel decreased to 37.5 mg due to daytime somnolence. (7) Urine retention: PLAN: This is tied to obstipation. Resolves after a few good BM's. Miralax added to the Senna. Continue to encourage increased fluid intake. (8) Parkinson's disease: PLAN: Minimal if any tremor. at times has good facial expression. Voice is not soft. Does she have PD or parkinsonism related to the dementia. PLAN: Plan Discussed a plan for DC with son CLAUDETTE. I think she would do well in a memory unit where there would be other people to interact with rather than sitting in her room all day at a SNF. CLAUDETTE works at home and Ashlie works outside of the home. I am thinking Cristin would still be alone most of the time. Claudette will talk with his family over the weekend and come up with a decision on the plan for DC. Charges/Coding Visit Charges Inpatient E&M: 67950 Subs Hosp L2
--- NOTE | 2022-07-21 16:33 | CASEMGMT ---
Social Work Received Medicaid pending number [id number] SAMI Reeves UNIT CLERK
[2022-07-21] MEDS: Haloperidol Lactate 5 MG/ML Vial 2 MG IM (16:59)
[2022-07-21 17:00] LABS: Bedside Glucose 216 mg/dL (74-106)
[2022-07-21] MEDS: Senna/Docusate Sodium 1 Tablet 2 TABLET PO (20:06)
[2022-07-21] MEDS: Mirtazapine 15 MG Tablet 7.5 MG PO (20:06)
[2022-07-21] MEDS: Atorvastatin Calcium 40 MG Tablet PO (20:06)
[2022-07-21] MEDS: QUEtiapine 25 MG Tablet 37.5 MG PO (20:06)
[2022-07-21] MEDS: Insulin Glargine-YFGN 100 UNIT/ML Pen 12 UNIT SC (21:53)
[2022-07-21 22:26] LABS: Bedside Glucose 145 mg/dL (74-106)
[2022-07-22] VITALS (7 sets, daily range): BP systolic 123–142; BP diastolic 54–76; PULSE 58–77; RESP 16–18; TEMP 36.2–36.4; O2SAT 95–98
[2022-07-22] MEDS: Acetaminophen 500 MG Tablet 1000 MG PO ×3 (06:34→21:00)
[2022-07-22] MEDS: Levothyroxine 100 MCG Tablet PO (06:34)
[2022-07-22] MEDS: Carbidopa/Levodopa 25/100 Tablet PO ×3 (06:34→17:01)
[2022-07-22] MEDS: QUEtiapine 25 MG Tablet 12.5 MG PO (06:34)
[2022-07-22] MEDS: hydrALAZINE 25 MG Tablet PO ×3 (06:35→21:01)
[2022-07-22 06:55] LABS: Bedside Glucose 160 mg/dL (74-106)
[2022-07-22] MEDS: Polyethylene Glycol 3350 17 GM PACKET PO (08:26)
[2022-07-22] MEDS: Cholecalciferol (VIT D3) 25 MCG TABLET (1,000 UNITS) PO (08:27)
[2022-07-22] MEDS: Memantine Hydrochloride 5 MG Tablet PO (08:27)
[2022-07-22] MEDS: Losartan Potassium 100 MG Tablet PO (08:27)
[2022-07-22] MEDS: LINAGLIPTIN 5 MG TABLET PO (08:27)
[2022-07-22] MEDS: Senna/Docusate Sodium 1 Tablet 2 TABLET PO ×2 (08:27→21:01)
[2022-07-22] MEDS: amLODIPine 10 MG Tablet PO (08:27)
[2022-07-22] MEDS: Insulin Lispro 100 UNIT/ML INSULN.PEN SC ×3 (08:27→17:01)
[2022-07-22] MEDS: Calcium Carb/Vitamin D 1 TABLET Tablet 2 TABLET PO ×2 (08:27→17:00)
[2022-07-22] MEDS: Insulin Lispro 100 UNIT/ML INSULN.PEN 8 UNIT SC ×3 (08:28→17:01)
[2022-07-22] MEDS: Metoprolol(XL)Succ 25 MG Tablet 75 MG PO ×2 (08:31→21:00)
[2022-07-22] MEDS: Nystatin Powder 15gm Bottle 1 APPLIC TOPICAL ×2 (08:39→21:01)
[2022-07-22] MEDS: Menthol/Lanolin/Calamine/Znox 113 GM Tube 1 APPLIC TOPICAL ×2 (08:39→21:01)
[2022-07-22] MEDS: NYSTATIN 500,000 UNIT/5 ML UDC 500000 UNIT PO ×4 (11:07→21:01)
[2022-07-22 12:15] LABS: Bedside Glucose 204 mg/dL (74-106)
[2022-07-22] MEDS: Magnesium Hydroxide 30 ML UDC PO (14:17)
[2022-07-22 17:31] LABS: Bedside Glucose 196 mg/dL (74-106)
[2022-07-22] MEDS: QUEtiapine 25 MG Tablet 37.5 MG PO (18:54)
[2022-07-22] MEDS: Atorvastatin Calcium 40 MG Tablet PO (21:01)
[2022-07-22] MEDS: Mirtazapine 15 MG Tablet 7.5 MG PO (21:02)
[2022-07-22] MEDS: Insulin Glargine-YFGN 100 UNIT/ML Pen 12 UNIT SC (21:20)
[2022-07-22 21:51] LABS: Bedside Glucose 191 mg/dL (74-106)
[2022-07-23] VITALS (9 sets, daily range): BP systolic 143–158; BP diastolic 52–69; PULSE 60–78; RESP 16–17; TEMP 36.3–36.6; O2SAT 96–99
[2022-07-23] MEDS: Bisacodyl 10 MG Suppository RC (00:45)
[2022-07-23] MEDS: oxyCODONE 5 MG Tablet PO (05:11)
[2022-07-23] MEDS: Acetaminophen 500 MG Tablet 1000 MG PO ×3 (05:12→22:06)
[2022-07-23] MEDS: QUEtiapine 25 MG Tablet 12.5 MG PO ×2 (05:12→13:47)
[2022-07-23] MEDS: hydrALAZINE 25 MG Tablet PO ×3 (05:13→22:07)
[2022-07-23] MEDS: Levothyroxine 100 MCG Tablet PO (05:14)
[2022-07-23] MEDS: Carbidopa/Levodopa 25/100 Tablet PO ×3 (06:20→17:14)
[2022-07-23 06:45] LABS: Bedside Glucose 220 mg/dL (74-106)
[2022-07-23] MEDS: Calcium Carb/Vitamin D 1 TABLET Tablet 2 TABLET PO ×2 (07:32→17:14)
[2022-07-23] MEDS: Polyethylene Glycol 3350 17 GM PACKET PO (07:32)
[2022-07-23] MEDS: LINAGLIPTIN 5 MG TABLET PO (07:33)
[2022-07-23] MEDS: Cholecalciferol (VIT D3) 25 MCG TABLET (1,000 UNITS) PO (07:33)
[2022-07-23] MEDS: Metoprolol(XL)Succ 25 MG Tablet 75 MG PO ×2 (07:33→22:06)
[2022-07-23] MEDS: Memantine Hydrochloride 5 MG Tablet PO (07:33)
[2022-07-23] MEDS: Senna/Docusate Sodium 1 Tablet 2 TABLET PO ×2 (07:33→22:06)
[2022-07-23] MEDS: Losartan Potassium 100 MG Tablet PO (07:33)
[2022-07-23] MEDS: amLODIPine 10 MG Tablet PO (07:33)
[2022-07-23] MEDS: Insulin Lispro 100 UNIT/ML INSULN.PEN 8 UNIT SC ×3 (08:01→17:13)
[2022-07-23] MEDS: Insulin Lispro 100 UNIT/ML INSULN.PEN SC ×3 (08:01→17:13)
[2022-07-23] MEDS: Nystatin Powder 15gm Bottle 1 APPLIC TOPICAL ×2 (08:44→22:07)
[2022-07-23] MEDS: Menthol/Lanolin/Calamine/Znox 113 GM Tube 1 APPLIC TOPICAL ×2 (08:44→22:07)
[2022-07-23] MEDS: NYSTATIN 500,000 UNIT/5 ML UDC 500000 UNIT PO ×4 (10:30→22:06)
[2022-07-23 11:35] LABS: Bedside Glucose 220 mg/dL (74-106)
[2022-07-23 16:31] LABS: Bedside Glucose 175 mg/dL (74-106)
[2022-07-23] MEDS: QUEtiapine 25 MG Tablet 37.5 MG PO (18:33)
--- NOTE | 2022-07-23 19:20 | NURSING ---
Very pleasant all day with staff. In the early afternoon started to have increased confusion with some agitation, yelling out, telling staff she is leaving and she needs her car. Difficulty with reorienting and Dr. Orourke increased seroquel to 12.5mg daily at 1400 as well. Patient had effectiveness and shortly after administration was easily reoriented. Patient stayed in staffs view all day and was up in recliner per her request and told staff she enjoyed being with us. Patient asked to go to bed at 1815 after toileting and fell asleep shortly after. Bed alarm in place, bed in low position.
[2022-07-23] MEDS: Atorvastatin Calcium 40 MG Tablet PO (22:07)
[2022-07-23] MEDS: Mirtazapine 15 MG Tablet 7.5 MG PO (22:08)
[2022-07-23] MEDS: Insulin Glargine-YFGN 100 UNIT/ML Pen 12 UNIT SC (22:17)
[2022-07-23 22:55] LABS: Bedside Glucose 246 mg/dL (74-106)
[2022-07-24] VITALS (9 sets, daily range): BP systolic 124–175; BP diastolic 44–58; PULSE 56–68; RESP 12–18; TEMP 36.2–36.5; O2SAT 96–98
--- NOTE | 2022-07-24 01:20 | CASEMGMT ---
Social Work Medical team updated that patient family plans for patient to discharge to home with 24/7 care and hospice. Team setting discharge date for 07/28/2022. Telephone call to patient son, Ruddy. Ruddy agreeable to discharge date and plan. Ruddy and team aware that pending continued stay approval by insurance and that insurance might set discharge date sooner. Telephone call to [facility], Lj. Lj reports to have received medical records from nursing staff on rehab unit and to need hospice order. This social work program coordinator faxed hospice order to [phone]. PLAN: Discharge to home with hospice services and 24/7 care by family. Proposed discharge date: 07/28/2022 Social Work to continue to follow. Kami GALLARDO, JESUS-S
[2022-07-24] MEDS: Acetaminophen 500 MG Tablet 1000 MG PO ×2 (06:30→19:49)
[2022-07-24] MEDS: Levothyroxine 100 MCG Tablet PO (06:30)
[2022-07-24] MEDS: Alendronate Sodium 70 MG Tablet PO (06:30)
[2022-07-24] MEDS: hydrALAZINE 25 MG Tablet PO (06:30)
[2022-07-24] MEDS: QUEtiapine 25 MG Tablet 12.5 MG PO ×2 (06:31→14:45)
[2022-07-24] MEDS: Carbidopa/Levodopa 25/100 Tablet PO ×3 (06:40→17:27)
[2022-07-24 07:16] LABS: Bedside Glucose 239 mg/dL (74-106)
[2022-07-24] MEDS: Insulin Lispro 100 UNIT/ML INSULN.PEN 8 UNIT SC (07:36)
[2022-07-24] MEDS: Insulin Lispro 100 UNIT/ML INSULN.PEN SC ×4 (07:37→17:27)
[2022-07-24] MEDS: Metoprolol(XL)Succ 25 MG Tablet 75 MG PO ×2 (07:37→19:48)
[2022-07-24] MEDS: NYSTATIN 500,000 UNIT/5 ML UDC 500000 UNIT PO ×4 (07:41→19:47)
[2022-07-24] MEDS: Calcium Carb/Vitamin D 1 TABLET Tablet 2 TABLET PO ×2 (07:41→17:27)
[2022-07-24] MEDS: amLODIPine 10 MG Tablet PO (07:41)
[2022-07-24] MEDS: Senna/Docusate Sodium 1 Tablet 2 TABLET PO ×2 (07:41→19:47)
[2022-07-24] MEDS: Losartan Potassium 100 MG Tablet PO (07:41)
[2022-07-24] MEDS: LINAGLIPTIN 5 MG TABLET PO (07:41)
[2022-07-24] MEDS: Memantine Hydrochloride 5 MG Tablet PO (07:41)
[2022-07-24] MEDS: Cholecalciferol (VIT D3) 25 MCG TABLET (1,000 UNITS) PO (07:41)
[2022-07-24] MEDS: Menthol/Lanolin/Calamine/Znox 113 GM Tube 1 APPLIC TOPICAL ×2 (07:42→19:47)
[2022-07-24] MEDS: Nystatin Powder 15gm Bottle 1 APPLIC TOPICAL ×2 (07:42→19:48)
[2022-07-24] MEDS: Polyethylene Glycol 3350 17 GM PACKET PO (07:42)
--- NOTE | 2022-07-24 10:25 | CASEMGMT ---
Social Work Telephone call from patient son, Ruddy. Ruddy states that plan is for patient to discharge to home with 24/7 care and hospice services through [facility] ([phone]). Ruddy states to understand teams concern with patient returning to home and we can take care of her. Social Work to continue to follow. Kami Higuera MSW, JESUS-Paul
--- NOTE | 2022-07-24 11:07 | PCM.PROGNOTE ---
Subjective Subjective Afebrile VSS - systolic BP is still elevated - up to 163 at times. BP while she is sleeping is within gaol. Maintaining appropriate oxygen saturation on RA Oral intake is good Discussed with nursing - Cristin was becoming agitated around 3 PM every day. Yelling out and restless. an afternoon dose of Seroquel was added yesterday and it helped. She slept very well last night the best since admission per the night nurse. Reviewed the PT/OT/ST notes Medication list reviewed. Blood sugars yesterday ranged from 1 75-2 46. Fasting today is 239 and the lunch sugar is 266. ROS is limited due to mental status/dementia. Denies pain and also denies SOB. She is eating well and is AF for the duration of her stay in rehab. Objective Data Objective Data Vital Signs: Vital Signs Temp Pulse Resp BP Pulse Ox O2 Del Method O2 Flow Rate 97.7 F L 56 L 12 124/44 H 98 Room Air 97 07/24/22 07:42 07/24/22 09:47 07/24/22 07:42 07/24/22 09:47 07/24/22 07:42 07/24/22 07:42 07/15/22 07:38 Oxygen Flow Rate (L/min) 97 Oxygen Delivery Method Room Air Weight: 149 lb 14.629 oz Body Mass Index (BMI) 28.8 Intake & Output: Intake and Output for Last 24 Hours 07/22/22 07/23/22 07/24/22 23:59 23:59 23:59 Intake Total 1065 / 1065 1060 / 1060 290 / 290 Output Total 1100 / 1100 700 / 700 200 / 200 Balance -35 / -35 360 / 360 90 / 90 Lab / Micro Data Result Diagrams: 07/16/22 05:33 07/16/22 05:33 Labs: Laboratory Results - last 24 hr 07/23/22 11:14: POC Glucose 220 H 07/23/22 16:09: POC Glucose 175 H 07/23/22 22:16: POC Glucose 246 H 07/24/22 06:27: POC Glucose 239 H Micro: Microbiology 07/04/22 15:00 Urine, Catheterized Urine Culture - Final Culture exhibits no growth. Physical Exam Const Constitutional Narrative: No yelling and not restless but, sleeping heavily. Difficult to arouse today. She is inconsistently cooperative. Orientation / Consciousness: confused HEENT head/scalp atraumatic Mouth: dry mucous membranes Neck supple Resp Resp Narrative: No labored breathing. Appears in no distress. Not coughing. No rales or wheezes. Effort and Inspection: Negative for tachypneic Cardio no murmurs Cardio Narrative: Regular with a bradycardic rate. No ectopy. GI normal to inspection, nondistended, normoactive bowel sounds and soft to palpation GI Narrative: No guarding with palpation. Post void residuals have been good since she was given a laxative on the . Had a BM today and the last prior to that was on the . Extremity Extremity Narrative: No complaints or grimacing when I squeeze her calves. General Extremity: Negative for cyanosis or edema Skin General Skin Exam: no breakdown Rashes: no rashes Wounds: Negative for wounds noted Neuro CN's II-XII intact bilaterally and no focal motor deficits Assessment & Plan Assessment/Plan (1) Debility: (2) Acute on chronic intracranial subdural hematoma: (3) Status post craniotomy: (4) Dementia with behavioral disturbance: (5) Head trauma: (6) Diabetes mellitus type 2, insulin dependent: (7) Parkinson's disease: (8) Atrial fibrillation: PLAN: Plan 1. Continue therapy 2. Change the insulin at breakfast and lunch to 10 units and increase the insulin at supper to 12 units. 3. CBC with diff, Mag, CMP and Phos in the AM 4. Awaiting the family's decision on home vs SNF or memory unit. 5. Currently a full code. Will discuss this with the family as well prior to DC. 6. Decrease the Seroquel at night to 25 mg. 7. She is not making progress in therapy. Behavior issues make it very difficult to do therapy. She needs sedation but, difficult to find a balance between too much sedation making her sleep alot and to little and having her yell out all day and being agitated. 8. CTB today without contrast to evaluate the acute on chronic SDH - does not complain of a POPE but, she is more somnolent today - difficult to ascertain if due to increasing acute on chronic SDH or medications? 9. change the Tylenol to PRN Charges/Coding Visit Charges Inpatient E&M: 85511 Subs Hosp L2
[2022-07-24 11:15] LABS: Bedside Glucose 266 mg/dL (74-106)
--- NOTE | 2022-07-24 11:52 | CT_ITS ---
STUDY: CT BRAIN WITHOUT CONTRAST REASON FOR EXAM: Female, 81 years old. Subdural hematoma -- Has had craniotomy. HAs fallen twice since RADIATION DOSAGE (If Supplied By Facility): CTDIvol = ( 44.99 ) mGy, DLP = ( 762.36 ) mGycm TECHNIQUE: Transaxial CT imaging of the brain was performed without administration of intravenous contrast material. Individualized dose optimization techniques were used for this CT. COMPARISON: Comparison is made with prior examination dated 07/16/2022. FINDINGS: Normal soft tissue structures. The patient is status post right frontoparietal craniotomy. Stable acute on chronic right subdural hematoma measuring up to 2.4 cm in transverse dimension. There are areas of decreased attenuation within the white matter tracts of the supratentorial brain, consistent with microvascular disease changes. Normal basal ganglia and thalami. Normal brainstem. Normal cerebellum. There is no intracranial hemorrhage. There are no findings of an acute ischemic infarction. Dense atherosclerotic calcification of the vertebral arteries. Stable focal lacunar infarct in the right basal ganglia. Normal visualized paranasal sinuses. CT/Brain/Head without Contrast IMPRESSION: Stable examination. Electronically Signed: Rayray Doan MD at 14:07 EST ,
--- NOTE | 2022-07-24 13:35 | CASEMGMT ---
Social Work Medical team updated that patient family plans for patient to discharge to home with 24/7 care and hospice. Team setting discharge date for 07/28/2022. Telephone call to patient son, Ruddy. Ruddy agreeable to discharge date and plan. Ruddy and team aware that pending continued stay approval by insurance and that insurance might set discharge date sooner. Telephone call to [facility], Lj. Lj reports to have received medical records from nursing staff on rehab unit and to need hospice order. This clinical social worker faxed hospice order to [phone]. PLAN: Discharge to home with hospice services and 24/7 care by family. Proposed discharge date: 07/28/2022 Social Work to continue to follow. Kami GALLARDO, JESUS-S
--- NOTE | 2022-07-24 14:10 | NURSING ---
information faxed to hospice per their request.
[2022-07-24] MEDS: hydrALAZINE 50 MG Tablet PO ×2 (14:45→19:48)
[2022-07-24 16:16] LABS: Bedside Glucose 244 mg/dL (74-106)
[2022-07-24] MEDS: Magnesium Hydroxide 30 ML UDC PO (17:42)
[2022-07-24] MEDS: Atorvastatin Calcium 40 MG Tablet PO (19:47)
[2022-07-24] MEDS: QUEtiapine 25 MG Tablet PO (19:47)
[2022-07-24] MEDS: Mirtazapine 15 MG Tablet 7.5 MG PO (19:48)
[2022-07-24] MEDS: Insulin Glargine-YFGN 100 UNIT/ML Pen 12 UNIT SC (21:50)
[2022-07-24 22:05] LABS: Bedside Glucose 235 mg/dL (74-106)
[2022-07-24] MEDS: oxyCODONE 5 MG Tablet PO (22:49)
--- NOTE | 2022-07-24 23:55 | NURSING ---
Pt yelling out consistently tonight, even though several times she has her eyes closed and says she does not know why she is yelling. Yelling out at this time for help getting up, asked if she needs to use the toilet, pt states I think so. Assisted to bsc x2 assists. Pt apologizing for yelling out and keeping us awake. Pt states that she is hungry, after several food options given, pt would like ice cream. Pt assisted back to bed , serge care given and given ice cream, ate with supervision. Voices appreciation for ice cream and rests in bed. Repositioned for comfort, pt resting in bed at this time, call light in reach, will continue to monitor.
[2022-07-25] VITALS (7 sets, daily range): BP systolic 136–158; BP diastolic 53–61; PULSE 61–66; RESP 18; TEMP 36.8–36.9; O2SAT 92–100
[2022-07-25] MEDS: hydrALAZINE 50 MG Tablet PO ×3 (04:56→20:51)
[2022-07-25] MEDS: Levothyroxine 100 MCG Tablet PO (04:56)
[2022-07-25] MEDS: QUEtiapine 25 MG Tablet 12.5 MG PO ×2 (04:57→14:52)
[2022-07-25] MEDS: Carbidopa/Levodopa 25/100 Tablet PO ×3 (05:01→17:11)
[2022-07-25 06:00] LABS: Absolute Lymphocyte Count 2.79 X10^3/uL (0.83-4.51); Absolute Neutrophil Count 2.9 X10^3/uL (2.0-7.7); Basophil# 0.03 X10^3/uL; Basophil% 0.4 % (0-1); Eosinophil# 0.12 X10^3/uL; Eosinophils% 1.8 % (0-5); Hematocrit 35.1 % (37-47); Hemoglobin 10.7 g/dL (12.0-15.0); Lymphocyte # 2.79 X10^3/ul (0.83-4.51); Lymphocyte % 41.8 % (19-41); Mean Corp Hgb Conc 30.5 g/dL (32-36); Mean Corpuscular Hgb 28.4 pg (27.0-32.0); Mean Corpuscular Volume 93.1 fL (81-99); Mean Platelet Vol. 10.7 fl (6.2-12.0); Monocyte# 0.81 X10^3/uL; Monocyte% 12.1 % (0-10); NRBC Flagged by Analyzer 0 % (0-5); Neutrophil # 2.91 X10^3/uL (2.7-7.7); Neutrophil % 43.6 % (47-70); Platelet Count 250 K/mm3 (150-450); RBC Distribution Width CV 16.4 % (11.6-14.6); RBC Distribution Width SD 55.7 fl (35.1-43.9); Red Blood Count 3.77 M/mm3 (4.2-5.4); White Blood Count 6.7 K/mm3 (4.4-11.0)
[2022-07-25 06:38] LABS: ALB/GLOB Ratio 0.9 RATIO (0.9-2.4); AST(SGOT) 8 U/L (15-37); Alanine Aminotransfer ALT/SGPT 9 U/L (13-56); Albumin, Serum 2.8 g/dL (3.2-5.0); Alkaline Phosphatase 74 U/L (45-117); Anion Gap 5 (5-15); BUN 33 mg/dL (7-18); BUN/Creat Ratio 24.4 RATIO (10-20); Calcium,Total 9.8 mg/dL (8.5-10.1); Chloride 102 mmol/L (98-107); Creatinine, Serum 1.35 mg/dL (0.55-1.02); EST Glomerular Filtration Rate 40 mL/min (>60); Est Glom Filt Rate - Afr Amer 48 mL/min (>60); Globulin 3.1 g/dL (2.2-4.2); Glucose 231 mg/dL (74-106); Magnesium 2.1 mg/dL (1.6-2.6); Phosphorus 3.4 mg/dL (2.5-4.9); Protein, Total 5.9 g/dL (6.4-8.2); Sodium Level 138 mmol/L (136-145)
[2022-07-25] MEDS: Insulin Lispro 100 UNIT/ML INSULN.PEN SC ×6 (08:44→17:10)
[2022-07-25] MEDS: NYSTATIN 500,000 UNIT/5 ML UDC 500000 UNIT PO ×4 (08:46→20:54)
[2022-07-25] MEDS: Senna/Docusate Sodium 1 Tablet 2 TABLET PO ×2 (08:46→20:53)
[2022-07-25] MEDS: Metoprolol(XL)Succ 25 MG Tablet 75 MG PO ×2 (08:46→20:58)
[2022-07-25] MEDS: Polyethylene Glycol 3350 17 GM PACKET PO (08:46)
[2022-07-25] MEDS: Cholecalciferol (VIT D3) 25 MCG TABLET (1,000 UNITS) PO (08:46)
[2022-07-25] MEDS: Calcium Carb/Vitamin D 1 TABLET Tablet 2 TABLET PO ×2 (08:46→17:11)
[2022-07-25] MEDS: Menthol/Lanolin/Calamine/Znox 113 GM Tube 1 APPLIC TOPICAL ×2 (08:47→20:54)
[2022-07-25] MEDS: Memantine Hydrochloride 5 MG Tablet PO (08:47)
[2022-07-25] MEDS: Nystatin Powder 15gm Bottle 1 APPLIC TOPICAL ×2 (08:47→20:55)
[2022-07-25] MEDS: amLODIPine 10 MG Tablet PO (08:47)
[2022-07-25] MEDS: LINAGLIPTIN 5 MG TABLET PO (08:47)
[2022-07-25] MEDS: Losartan Potassium 100 MG Tablet PO (08:47)
--- NOTE | 2022-07-25 11:01 | PCM.PROGNOTE ---
Subjective Subjective Afebrile VSS Maintaining appropriate oxygen saturation on RA Oral intake is Good. Fluid intake has been greater than 1000 for the past 3 days. She is eating well. The blood sugar record was reviewed. Discussed with nursing - no problems that need addressed. Behavior is much better during the day with giving the Seroquel TID but, I reduced the HS Seroquel to 25 mg yesterday and she was up every hour yelling last night. She was cussing and throwing things this morning but, after the Seroquel she calmed down and she was able to do therapy today. Reviewed the PT/OT/ST notes Medication list reviewed.The insulin regimen was adjusted yesterday. She got an increased dose at supper and the doses for breakfast and lunch were increased and will affect today's sugars. She is alert this AM and making good eye contact with me when we talk. She has no complaints but, when I ask her if her head hurts she tells me it always hurts. Denies abd pain, Nausea, cough, SOB, lightheadedness. Denies pain with urination. Denies sore throat. All lab today was personally reviewed. Hemoglobin is stable at 10.7. White blood cell count is within normal limits.Platelets are normal.Lymphs are increased at 41.8 today. Electrolytes are within normal limits.The BUN is elevated at 33 and the creatinine today is 1.35. This is up from 0.81 on 07/16/2022. The at bedtime blood sugar last night was 235 and the fasting today is 231. Objective Data Objective Data Vital Signs: Vital Signs Temp Pulse Resp BP Pulse Ox O2 Del Method O2 Flow Rate 98.5 F 61 18 138/57 H 100 Room Air 97 07/25/22 07:25 07/25/22 08:46 07/25/22 07:25 07/25/22 08:46 07/25/22 07:25 07/25/22 07:25 07/15/22 07:38 Oxygen Flow Rate (L/min) 97 Oxygen Delivery Method Room Air Weight: 149 lb 14.629 oz Body Mass Index (BMI) 28.8 Intake & Output: Intake and Output for Last 24 Hours 07/23/22 07/24/22 07/25/22 23:59 23:59 23:59 Intake Total 1060 / 1060 1190 / 1190 680 / 680 Output Total 700 / 700 500 / 500 250 / 250 Balance 360 / 360 690 / 690 430 / 430 Lab / Micro Data Result Diagrams: 07/25/22 05:44 07/25/22 05:44 Labs: Laboratory Results - last 24 hr 07/24/22 10:54: POC Glucose 266 H 07/24/22 15:56: POC Glucose 244 H 07/24/22 21:48: POC Glucose 235 H 07/25/22 05:44: WBC 6.7, RBC 3.77 L, Hgb 10.7 L, Hct 35.1 L, MCV 93.1, MCH 28.4, MCHC 30.5 L, RDW Std Deviation 55.7 H, RDW Coeff of Darius 16.4 H, Plt Count 250, MPV 10.7, Immature Gran % (Auto) 0.300, Neut % (Auto) 43.6 L, Lymph % (Auto) 41.8 H, [place] % (Auto) 12.1 H, Eos % (Auto) 1.8, Baso % (Auto) 0.4, Absolute Neuts (auto) 2.9, Absolute Lymphs (auto) 2.79, Nucleated RBC % 0 07/25/22 05:44: Sodium 138, Potassium 4.0, Chloride 102, Carbon Dioxide 31.0, Anion Gap 5, BUN 33 H, Creatinine 1.35 H, Estim Creat Clear Calc 30.60, Est GFR (MDRD) Af Amer 48 L, Est GFR (MDRD) Non-Af 40 L, BUN/Creatinine Ratio 24.4 H, Glucose 231 H, Calcium 9.8, Phosphorus 3.4, Magnesium 2.1, Total Bilirubin 0.40, AST 8 L, ALT 9 L, Alkaline Phosphatase 74, Total Protein 5.9 L, Albumin 2.8 L, Globulin 3.1, Albumin/Globulin Ratio 0.9 Micro: Microbiology 07/04/22 15:00 Urine, Catheterized Urine Culture - Final Culture exhibits no growth. Radiography Diagnostic Testing: Radiology Impression Brain CT 07/24/22 11:52 IMPRESSION: Stable examination. Electronically Signed: Rayray Doan MD at 14:07 EST , Physical Exam Const alert Constitutional Narrative: Smiling, responding to my questions. HEENT oropharynx normal HEENT Narrative: no cervical adenopathy. Mouth: dry mucous membranes Resp normal respiratory effort and clear to auscultation bilaterally Resp Narrative: She coughed a little with breakfast today but, the lungs were CTA after that. She is not tachypneic. No conversational dyspnea. Cardio no murmurs and no gallops Cardio Narrative: Bradycardia with Occasional early beat. GI normal to inspection, nondistended, normoactive bowel sounds and soft to palpation GI Narrative: No guarding with palpation Extremity Extremity Narrative: Both feet are warm to touch with intact sensation. General Extremity: Negative for edema Skin General Skin Exam: no breakdown Rashes: no rashes Neuro CN's II-XII intact bilaterally Assessment & Plan Assessment/Plan (1) Acute renal failure: (2) Debility: (3) Acute on chronic intracranial subdural hematoma: (4) Status post craniotomy: (5) Dementia with behavioral disturbance: (6) Head trauma: (7) Diabetes mellitus type 2, insulin dependent: PLAN: Uncontrolled (8) Parkinson's disease: PLAN: 1. She is going home on hospice on 07/27/22 2. adjust insulin as needed. 3. The acute renal failure is most likely due to dehydration. since she is going home with hospice I am not going to give IV fluids but, will continue to encourage her to drink.....her nurse got her to take 580 cc today. 4. BP is adequately controlled. 5. she has a lymphocytosis but, is asymptomatic. No tx necessary at this time 6. Continue therapy to maximize her potential so she can hopefully be managed by 1 person to assist at home. Charges/Coding Visit Charges Inpatient E&M: 20165 Subs Hosp L2
[2022-07-25 12:14] LABS: Bedside Glucose 235 mg/dL (74-106)
[2022-07-25 12:14] LABS: Bedside Glucose 261 mg/dL (74-106)
--- NOTE | 2022-07-25 15:41 | CASEMGMT ---
Social Work SW Followed up with Jl at [facility] on DC plans. Lj requesting additional clinical information and transport time. Faxed updated clinicals and scheduled cot transport through [facility] for 1300. Spoke with son to confirm all plans in place. Son in agreement and expressed appreciation for this worker's assistance. Plan: DC home with [facility] 07/28 SAMI Reeves
[2022-07-25 17:05] LABS: Bedside Glucose 194 mg/dL (74-106)
[2022-07-25] MEDS: Acetaminophen 500 MG Tablet 1000 MG PO (20:02)
[2022-07-25] MEDS: QUEtiapine 25 MG Tablet 37.5 MG PO (20:03)
[2022-07-25] MEDS: Mirtazapine 15 MG Tablet 7.5 MG PO (20:54)
[2022-07-25] MEDS: Atorvastatin Calcium 40 MG Tablet PO (20:59)
[2022-07-25] MEDS: Insulin Glargine-YFGN 100 UNIT/ML Pen 12 UNIT SC (21:13)
[2022-07-25 21:35] LABS: Bedside Glucose 234 mg/dL (74-106)
[2022-07-26] VITALS (7 sets, daily range): BP systolic 146–154; BP diastolic 50–66; PULSE 56–64; RESP 18; TEMP 36.3–37; O2SAT 95–99
[2022-07-26] MEDS: oxyCODONE 5 MG Tablet PO ×2 (04:57→20:44)
[2022-07-26] MEDS: Acetaminophen 500 MG Tablet 1000 MG PO ×2 (04:57→20:42)
[2022-07-26] MEDS: Levothyroxine 100 MCG Tablet PO (04:58)
[2022-07-26] MEDS: QUEtiapine 25 MG Tablet 12.5 MG PO ×2 (04:58→15:19)
[2022-07-26] MEDS: hydrALAZINE 50 MG Tablet PO ×3 (05:05→20:46)
[2022-07-26 07:50] LABS: Bedside Glucose 270 mg/dL (74-106)
[2022-07-26] MEDS: NYSTATIN 500,000 UNIT/5 ML UDC 500000 UNIT PO ×3 (08:14→20:42)
[2022-07-26] MEDS: Carbidopa/Levodopa 25/100 Tablet PO ×3 (08:15→17:19)
[2022-07-26] MEDS: Metoprolol(XL)Succ 25 MG Tablet 75 MG PO ×2 (08:15→20:44)
[2022-07-26] MEDS: Calcium Carb/Vitamin D 1 TABLET Tablet 2 TABLET PO ×2 (08:15→17:47)
[2022-07-26] MEDS: Polyethylene Glycol 3350 17 GM PACKET PO (08:15)
[2022-07-26] MEDS: amLODIPine 10 MG Tablet PO (08:15)
[2022-07-26] MEDS: Cholecalciferol (VIT D3) 25 MCG TABLET (1,000 UNITS) PO (08:15)
[2022-07-26] MEDS: LINAGLIPTIN 5 MG TABLET PO (08:16)
[2022-07-26] MEDS: Insulin Lispro 100 UNIT/ML INSULN.PEN SC ×5 (08:16→17:46)
[2022-07-26] MEDS: Memantine Hydrochloride 5 MG Tablet PO (08:16)
[2022-07-26] MEDS: Senna/Docusate Sodium 1 Tablet 2 TABLET PO ×2 (08:16→20:46)
[2022-07-26] MEDS: Losartan Potassium 100 MG Tablet PO (08:16)
[2022-07-26] MEDS: Nystatin Powder 15gm Bottle 1 APPLIC TOPICAL (08:24)
[2022-07-26] MEDS: Menthol/Lanolin/Calamine/Znox 113 GM Tube 1 APPLIC TOPICAL ×2 (08:24→20:42)
[2022-07-26 12:15] LABS: Bedside Glucose 199 mg/dL (74-106)
[2022-07-26 17:10] LABS: Bedside Glucose 124 mg/dL (74-106)
[2022-07-26] MEDS: QUEtiapine 25 MG Tablet 37.5 MG PO (20:43)
[2022-07-26] MEDS: Atorvastatin Calcium 40 MG Tablet PO (20:45)
[2022-07-26] MEDS: Mirtazapine 15 MG Tablet 7.5 MG PO (20:47)
[2022-07-26] MEDS: Insulin Glargine-YFGN 100 UNIT/ML Pen 12 UNIT SC (21:06)
[2022-07-26 21:11] LABS: Bedside Glucose 194 mg/dL (74-106)
--- NOTE | 2022-07-26 22:33 | NURSING ---
Pt continues to yell out. Informed pt to stop yelling and does she need anything. Pt requesting to get up for the day. Informed pt that it is night time.. Pt told this nurse to GO to Hell. Pt becoming more agitated will monitor. Informed pt if she conts to yell and act aggressive she will be getting a haldol shot. Pt then ignored this nurse. Pt recovered w blankets. Will monitor
[2022-07-26] MEDS: Haloperidol Lactate 5 MG/ML Vial 2 MG IM (22:44)
--- NOTE | 2022-07-26 22:46 | NURSING ---
Pt remains confused and yelling out. Pt uncovered worried about her safety. haldol Im given. Continues to yell out for help but when asked she wanted covers removed but then held onto them like she didn't want removed.
--- NOTE | 2022-07-26 22:51 | NURSING ---
pt has now thrown the pillow on floor and sheet. Will cont to monitor
[2022-07-27] VITALS (7 sets, daily range): BP systolic 125–176; BP diastolic 51–54; PULSE 57–61; RESP 16–18; TEMP 36.1–36.7; O2SAT 95–98
--- NOTE | 2022-07-27 02:15 | NURSING ---
Addendum entered by Magali Trejo 07/27/22 02:36: 0200 pt continues to sleep intermittently, when awake continues to get out of the chair to go home, or leave. staff tried to engage pt in conversation about her life and hobbies with little effect Original Note: pt has been awake most of the shift sleeping intermittently. yelling out for help, getting out off the bed, and throwing bedding and food on the floor. staff in pt room given assistance with toileting , snacks and fluids with no success of calming pt down pt had been given prescribed medication along with extra pain medication for h/a as well as Haldol later for agitation. pt has been incontinent several x's through out the shift and at 0115 pt was bladder scanned for 372cc and was straight cathed for 300cc pt has been smearing stool all shift as well but denied the need to go. 0130 pt was placed in the recliner and brought out to the nursing station for safety 020
--- NOTE | 2022-07-27 02:19 | NURSING ---
Pt remains sitting at nurses station in chair.
[2022-07-27] MEDS: hydrALAZINE 50 MG Tablet PO ×3 (05:13→20:50)
[2022-07-27] MEDS: Acetaminophen 500 MG Tablet 1000 MG PO (05:13)
[2022-07-27] MEDS: QUEtiapine 25 MG Tablet 12.5 MG PO ×2 (05:13→14:27)
[2022-07-27] MEDS: oxyCODONE 5 MG Tablet PO (05:13)
[2022-07-27] MEDS: Levothyroxine 100 MCG Tablet PO (05:14)
[2022-07-27 07:35] LABS: Bedside Glucose 214 mg/dL (74-106)
[2022-07-27] MEDS: Insulin Lispro 100 UNIT/ML INSULN.PEN SC ×3 (08:04→17:03)
[2022-07-27] MEDS: Insulin Lispro 100 UNIT/ML INSULN.PEN 10 UNIT SC ×2 (08:04→12:52)
[2022-07-27] MEDS: Metoprolol(XL)Succ 25 MG Tablet 75 MG PO ×2 (08:05→20:49)
[2022-07-27] MEDS: Senna/Docusate Sodium 1 Tablet 2 TABLET PO ×2 (08:05→20:51)
[2022-07-27] MEDS: LINAGLIPTIN 5 MG TABLET PO (08:05)
[2022-07-27] MEDS: Memantine Hydrochloride 5 MG Tablet PO (08:05)
[2022-07-27] MEDS: Carbidopa/Levodopa 25/100 Tablet PO ×3 (08:05→17:03)
[2022-07-27] MEDS: Cholecalciferol (VIT D3) 25 MCG TABLET (1,000 UNITS) PO (08:05)
[2022-07-27] MEDS: Losartan Potassium 100 MG Tablet PO (08:05)
[2022-07-27] MEDS: amLODIPine 10 MG Tablet PO (08:05)
[2022-07-27] MEDS: Menthol/Lanolin/Calamine/Znox 113 GM Tube 1 APPLIC TOPICAL ×2 (08:39→20:52)
[2022-07-27] MEDS: Nystatin Powder 15gm Bottle 1 APPLIC TOPICAL ×2 (08:39→20:51)
[2022-07-27 11:21] LABS: Bedside Glucose 183 mg/dL (74-106)
[2022-07-27 16:35] LABS: Bedside Glucose 172 mg/dL (74-106)
[2022-07-27] MEDS: NYSTATIN 500,000 UNIT/5 ML UDC 500000 UNIT PO ×2 (17:02→20:52)
[2022-07-27] MEDS: Calcium Carb/Vitamin D 1 TABLET Tablet 2 TABLET PO (17:02)
[2022-07-27] MEDS: Insulin Lispro 100 UNIT/ML INSULN.PEN 12 UNIT SC (17:03)
[2022-07-27] MEDS: QUEtiapine 25 MG Tablet 37.5 MG PO (19:34)
--- NOTE | 2022-07-27 19:50 | DCINST_ITS ---
Discharge Instructions Diet Discharge Diet: Carb Control Diet Activity Discharge Activity: May Not Drive, May Shower and Use Walker Weight Bearing Status: Weight bearing as tolerated Dressing / Incision Call your doctor if you observe: Fever of 101 or Higher, Inability to urinate, Inability to have a bowel movement, Shortness of breath, Fainting spells, Swelling in the ankles, Chest pain, Calf discomfort and Uncontrolled pain Suture Line Care: Avoid Pulling/Pushing and Avoid Pinching/Bending Cleanse incision/area with: Soap & Water Additional Dressing/Incision Instructions:: the cranial incision can be left open to air and does not require a dressing. Look at the incision daily and if there is redness, swelling or discharge from the incision call the doctor.......you could call the hospice nurse also. Follow Up Care Please Follow Up With: Dr. Hill Test Results: Test results from this visit will be discussed in further detail at your follow- up appointment, if applicable. Pending Tests Upon Discharge: none Discharge Plan Admission Admit Date/Time: 07/03/22 19:20 Primary Reason for Your Visit: debility due to acute on chronic SDH/craniotomy complicated by dementia Attending Provider: Susie Orourke Consulting Providers: Mazin Rosas Instructions Additional Instructions / Restrictions: 1. When Cristin starts to retain urine she is usually constipated so make sure to keep up with the stool softeners and if she does not have a BM in 3 days give her a laxative. 2. She gets lonely and when this happens she yells a lot and acts out and throws things. She usually calms down if someone goes into her room and talks with her. 3. She has been sleeping well at night on the current drug regimen. 4. The incision is intact and there is no sign of infection at the time of Discharge. She has not complained of a headache recently unless we ask her and she usually says yes. 5. I have stopped some of the regular medications that will not improve quality of life or change longevity of life. Hospice may change the medications so I have given you 15 days of medications with 1 refill in case she is not seen by hospice on the day of DC. 6. Try and encourage increased fluid intake. Her last lab work showed some kidney failure and I elected not to give IV fluids because she is being discharged on hospice. Discharge Orders/Prescriptions Prescriptions: New acetaminophen 500 mg Tablet 1,000 mg PO Q8 PRN (Reason: fever/pain) Qty: 0 0RF amlodipine 10 mg Tablet 10 mg PO BREAKFAST Qty: 15 1RF bisacodyl 10 mg Suppository 10 mg MA .PRN X 1 PRN (Reason: Constipation) Qty: 0 0RF hydralazine 50 mg Tablet 50 mg PO TID Qty: 45 1RF insulin glargine-yfgn 100 unit/mL (3 mL) Insulin Pen 14 unit subcut QHS Qty: 6 0RF Rx Instructions: 14 units at bedtime insulin lispro [Humalog KwikPen Insulin] 100 unit/mL Insulin Pen 12 unit subcut TIDCM Qty: 12 0RF Rx Instructions: 12 units with each meal. levothyroxine 100 mcg Tablet 100 mcg PO DAILY@0600 Qty: 15 1RF sitagliptin phosphate 25 mg tablet 25 mg PO DAILY Qty: 15 1RF carbidopa-levodopa 25-100 mg Tablet 1 tab PO TIDAC Qty: 45 1RF metoprolol succinate 25 mg Tablet Extended Release 24 Hr 75 mg PO BID Qty: 30 1RF nystatin [Nyamyc] 100,000 unit/gram Powder 1 applic topical BID Qty: 0 0RF Protocol: *Topical Application Instructions APPLICATION INSTRUCTIONS: under bilat breasts, abdominal folds, and groin losartan 100 mg Tablet 100 mg PO DAILY Qty: 15 1RF oxycodone 5 mg Tablet 5 mg PO Q8H PRN PRN (Reason: Pain Score 5 or Greater) 7 Days Qty: 20 0RF memantine 5 mg Tablet 5 mg PO DAILY Qty: 15 1RF menthol-zinc oxide [Calmoseptine] 0.44-20.6 % Ointment 1 applic topical BID Qty: 0 0RF Protocol: *Topical Application Instructions APPLICATION INSTRUCTIONS: bilat buttocks and groin quetiapine 25 mg Tablet See Rx Instructions .ROUTE .COMPLEX Qty: 75 1RF Rx Instructions: 12.5 mg (1 tab) orally at 0600 and 1400 and 37.5 mg (3 tabs) at 7 PM polyethylene glycol 3350 17 gram Powder In Packet 17 g PO DAILY Qty: 30 0RF sennosides-docusate sodium [Stool Softener-Stimulant Laxat] 8.6-50 mg Tablet 2 tab PO BID Qty: 60 1RF mirtazapine [Remeron] 15 mg tablet 15 mg PO QHS Qty: 15 1RF Referrals / Follow Up: Lucila Hill [Other] - 08/15/22 2:45 pm (Neuro) Disposition Disposition (needs filled in before D/C Order can be placed): Hospice in Home
[2022-07-27] MEDS: Mirtazapine 15 MG Tablet 7.5 MG PO (20:50)
[2022-07-27] MEDS: Atorvastatin Calcium 40 MG Tablet PO (20:51)
[2022-07-27] MEDS: Insulin Glargine-YFGN 100 UNIT/ML Pen 12 UNIT SC (21:25)
[2022-07-27 22:50] LABS: Bedside Glucose 262 mg/dL (74-106)
[2022-07-28] MEDS: QUEtiapine 25 MG Tablet 12.5 MG PO ×2 (06:52→13:16)
[2022-07-28 06:53] VITALS: BP 154/53; PULSE 67
[2022-07-28] MEDS: hydrALAZINE 50 MG Tablet PO ×2 (06:53→13:16)
[2022-07-28] MEDS: Levothyroxine 100 MCG Tablet PO (06:53)
[2022-07-28] MEDS: Carbidopa/Levodopa 25/100 Tablet PO ×2 (06:54→11:31)
[2022-07-28 07:25] LABS: Bedside Glucose 200 mg/dL (74-106)
[2022-07-28 07:35] VITALS: BP 154/53; PULSE 67; RESP 16; TEMP 36.7; O2SAT 96
[2022-07-28] MEDS: Polyethylene Glycol 3350 17 GM PACKET PO (07:59)
[2022-07-28] MEDS: LINAGLIPTIN 5 MG TABLET PO (07:59)
[2022-07-28] MEDS: Senna/Docusate Sodium 1 Tablet 2 TABLET PO (07:59)
[2022-07-28] MEDS: Calcium Carb/Vitamin D 1 TABLET Tablet 2 TABLET PO (07:59)
[2022-07-28] MEDS: Nystatin Powder 15gm Bottle 1 APPLIC TOPICAL (08:00)
[2022-07-28] MEDS: amLODIPine 10 MG Tablet PO (08:00)
[2022-07-28] MEDS: Losartan Potassium 100 MG Tablet PO (08:00)
[2022-07-28] MEDS: Menthol/Lanolin/Calamine/Znox 113 GM Tube 1 APPLIC TOPICAL (08:00)
[2022-07-28] MEDS: Memantine Hydrochloride 5 MG Tablet PO (08:02)
[2022-07-28 08:07] VITALS: PULSE 70
[2022-07-28] MEDS: Metoprolol(XL)Succ 25 MG Tablet 75 MG PO (08:07)
[2022-07-28] MEDS: oxyCODONE 5 MG Tablet PO (08:07)
[2022-07-28] MEDS: Cholecalciferol (VIT D3) 25 MCG TABLET (1,000 UNITS) PO (08:09)
[2022-07-28] MEDS: Insulin Lispro 100 UNIT/ML INSULN.PEN SC ×2 (08:10→11:31)
[2022-07-28] MEDS: Insulin Lispro 100 UNIT/ML INSULN.PEN 10 UNIT SC ×2 (08:10→11:31)
[2022-07-28] MEDS: NYSTATIN 500,000 UNIT/5 ML UDC 500000 UNIT PO (11:31)
[2022-07-28 12:00] LABS: Bedside Glucose 184 mg/dL (74-106)
[2022-07-28 13:16] VITALS: PULSE 74
[2022-07-28 13:45] VITALS: BP 154/53; PULSE 67; RESP 16; TEMP 36.7; O2SAT 96
--- NOTE | 2022-07-28 13:45 | NURSING ---
Discharged home with [facility] personnel and son present and this nurse went over visiting hours with him.
--- NOTE | 2022-08-08 16:26 | PCM.DC.SUM ---
Providers Date of Admission: 07/03/22 Date of Discharge: 07/28/22 Consultations 07/11/22 11:56 Consult: Orthopedics Routine Consulting Provider: Mazin Rosas Reason for Consult: Fractured Left humerus EMERGENT Consult: No MD Notified: Yes Date Notified: 07/11/22 Time Notified: 11:57 Method of Notification: Text Reason For Visit: SDH Diagnosis Discharge Diagnosis (1) Debility: Status: Acute Code(s): R53.81 - Other malaise (2) Acute on chronic intracranial subdural hematoma: Status: Acute Code(s): I62.01 - Nontraumatic acute subdural hemorrhage; I62.03 - Nontraumatic chronic subdural hemorrhage (3) Status post craniotomy: Status: Inactive Code(s): Z98.890 - Other specified postprocedural states (4) Dementia with behavioral disturbance: Status: Acute Code(s): F03.918 - Unspecified dementia, unspecified severity, with other behavioral disturbance (5) Acute renal failure: Status: Acute Code(s): N17.9 - Acute kidney failure, unspecified (6) Head trauma: Status: Acute Code(s): S09.90XA - Unspecified injury of head, initial encounter (7) Diabetes mellitus type 2, insulin dependent: Status: Inactive Code(s): E11.9 - Type 2 diabetes mellitus without complications; Z79.4 - rat exterminator (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 DC home with son CLAUDETTE on hospice. Medications at Discharge Home Medications acetaminophen 500 mg tablet 1,000 mg PO Q8 PRN fever/pain #0 tabs 07/27/22 amlodipine 10 mg tablet 10 mg PO BREAKFAST #15 tabs 07/27/22 bisacodyl 10 mg rectal suppository 10 mg MT .PRN X 1 PRN Constipation #0 ea 07/27/22 carbidopa 25 mg-levodopa 100 mg tablet 1 tab PO TIDAC #45 tabs 07/27/22 hydralazine 50 mg tablet 50 mg PO TID #45 tabs 07/27/22 insulin glargine-yfgn 100 unit/mL (3 mL) subcutaneous pen 14 unit (0.14 mL) subcut QHS #6 mL 07/27/22 insulin lispro 100 unit/mL subcutaneous pen (Humalog KwikPen (U-100) Insulin) 12 unit (0.12 mL) subcut TIDCM #12 mL 07/27/22 levothyroxine 100 mcg tablet 100 mcg PO DAILY@0600 #15 tabs 07/27/22 losartan 100 mg tablet 100 mg PO DAILY #15 tabs 07/27/22 memantine 5 mg tablet 5 mg PO DAILY #15 tabs 07/27/22 menthol 0.44 %-zinc oxide 20.6 % topical ointment (Calmoseptine) 1 applic topical BID #0 grams 07/27/22 metoprolol succinate 25 mg tablet,extended release 24 hr 75 mg PO BID #30 tabs 07/27/22 mirtazapine 15 mg tablet (Remeron) 15 mg PO QHS #15 tabs 07/27/22 nystatin 100,000 unit/gram topical powder (Nyamyc) 1 applic topical BID #0 grams 07/27/22 oxycodone 5 mg tablet 5 mg PO Q8H PRN PRN Pain Score 5 or Greater 7 days #20 tabs 07/27/22 polyethylene glycol 3350 17 gram oral powder packet 17 g PO DAILY #30 ea 07/27/22 quetiapine 25 mg tablet See Rx Instructions .Route .COMPLEX #75 tabs 07/27/22 sennosides 8.6 mg-docusate sodium 50 mg tablet (Stool Softener-Stimulant Laxative) 2 tab PO BID #60 tabs 07/27/22 sitagliptin phosphate 25 mg tablet 25 mg PO DAILY #15 tabs 07/27/22 Hospital Course Operations - (Craniotomy on 06/25/2022 to evacuate subdural hematoma) Procedures None Summary of Care Provided Minutes Spent on Discharge: 35 Hospital Course: NADEGE LIZET, is a 81 YO F with a PMH of PD, DM, dementia, HTN, hypothyroidism, chronic subdural hematoma, osteoporosis (she is on Fosamax 70 mg weekly) and recent COVID pneumonia (April 2022) who presented to [facility] on 06/24/22 from [facility] with complaint of increasing difficulty with ambulation and progressive left-sided weakness.? CAT scan of the head showed an increase in the size of a known subdural hematoma with an 8 mm midline shift.? She was transported to [facility] for neurosurgical evaluation.? She was taken for craniotomy on 06/25/22 to evacuate the hematoma.? Post operatively she had PAF.? She was placed on Metoprolol for rate control.? She was diagnosed with BL unstageable decubitus ulcers of both heels and moderate Malnutrition while at [facility].?She had no decubitus ulcers at presentation to [facility]. She was seen by ST and was on a pureed diet with nectar thick liquids for dysphagia.? PT/OT recommended acute rehab following DC from [facility].? She was transferred to the acute inpt rehab unit at [facility] on 07/03/22 for 3 hours of therapy daily to restore function at or near her level prior to the craniotomy.? Nadege had severe behavioral issues at presentation to rehab. She was throwing things and yelling almost continuously. She was started on Seroquel and the dose was gradually titrated up to get control of her behavior. She sometimes cooperated with therapy and other times did not. Sometimes she would sleep most of the day. She slept well at night after Seroquel was titrated. She primarily yells when she is alone in her room and wants company. When she is at the nurses station she calms down and goes to sleep. Nadege tried to get up from a chair, while she had a chair alarm on and before we were able to get to her room she was only the floor. She had periorbital swelling of the right eye and hematoma of the eyebrow and forehead. She was sent for a CT scan of her head and there was no change from the previous CT scan. On another occasion she threw herself over the side rails and onto the floor. Stat CT at that time showed a persistent sizable right-sided subdural collection measuring up to 2.7 cm with areas of hyperdensity compatible with acute on chronic subdural hemorrhage. Follow-up CT 24 hours later showed stable right-sided acute on chronic subdural hemorrhage with a stable 2 mm right to left midline shift. Nadege required a sitter on several occasions. At Discharge from rehab Nadege requires moderate assistance with upper body dressing and max assist for lower body dressing. She was mod assist for bathing and total assist for toileting. She is mod assist for toilet transfer. Also mod assist for tub/shower transfer. She was able to do a modified curb step with a front wheel walker and max assist of 2 on 07/21/2022 however prior to discharge she was not safe to attempt it. On 07/27/2022 she ambulated 35 feet at moderate assistance of 1 with a close chair follow using a front wheel walker. She required moderate assistance of 1 person to go from sitting to standing. Nadege still required a lot of assistance at [place]. She requires attention and close monitoring 19/03 due to behavioral problems. He son is unable to assist Nadege in any way due to his own debility. Nadege's dtr-in-law felt sure that she could adequately care for Nadege and did not want to come in for family training. Nadege was discharged on 07/28/22 to home with hospice. Physical Exam Narrative She was sleeping when I entered the room but easily aroused when I called her name. Const alert and no apparent distress Constitutional Narrative: Smiling, responding to my questions. She is cooperative when I am in her room talking with her but, as soon as I leave she is yelling again. General Appearance: cooperative Orientation / Consciousness: confused HEENT normocephalic HEENT Narrative: the R craniotomy incision is intact with no dehiscence and no purulent discharge. There is no erythema in the serge-incisional area. There is trace swelling. Eyes PERRL, EOMs intact bilaterally, conjunctivae normal and no scleral icterus Eyes Narrative: She has some edema of the serge-orbital area on the left but the bruising has mostly resolved. She denies cephalgia. Neck supple and No nodes General: trachea midline Chest Chest: symmetrical chest wall rise Resp normal respiratory effort, normal air movement and clear to auscultation bilaterally Resp Narrative: She is not tachypneic. No conversational dyspnea. Effort and Inspection: Negative for tachypneic, respiratory distress, labored or uses accessory muscles Cardio regular rate, regular rhythm, S1 normal heart sound, S2 normal heart sound, no murmurs, no rub and no gallops Cardio Narrative: She is bradycardic at times. GI normal to inspection, nondistended, normoactive bowel sounds, soft to palpation and non-tender GI Narrative: No guarding with palpation Inspection: Negative for abdominal distention Extremity no calf tenderness Extremity Narrative: Both feet are warm to touch with intact sensation. General Extremity: Negative for cyanosis or edema Skin General Skin Exam: no breakdown Rashes: no rashes Wounds: Negative for wounds noted Wound Narrative: Craniotomy incision has no serge-incisional erythema, no discharge and no significant swelling. It is intact with no dehiscence. Neuro CN's II-XII intact bilaterally and no focal motor deficits Neuro Narrative: Left side neglect Psych Psych Narrative: Aggressive and throwing things at times. This is mostly controlled with Seroquel. Attitude: agitated Activity / Motor Behavior: restless Weight / BMI Weight Weight: 150 lb 5.684 oz Body Mass Index (BMI) 28.8 ABG / Lab / Microbiology Data Result Diagrams: 07/25/22 05:44 07/25/22 05:44 Microbiology: Microbiology 07/04/22 15:00 Urine, Catheterized Urine Culture - Final Culture exhibits no growth. D/C Instructions Discharge Diet: Carb Control Diet Weight Bearing Status: Weight bearing as tolerated Call your doctor if you observe: Fever of 101 or Higher, Inability to urinate, Inability to have a bowel movement, Shortness of breath, Fainting spells, Swelling in the ankles, Chest pain, Calf discomfort and Uncontrolled pain Suture Line Care: Avoid Pulling/Pushing and Avoid Pinching/Bending Cleanse incision/area with: Soap & Water Additional Dressing/Incision Instructions: the cranial incision can be left open to air and does not require a dressing. Look at the incision daily and if there is redness, swelling or discharge from the incision call the doctor.......you could call the hospice nurse also. Pending Tests Upon Discharge: none Please Follow Up With: Dr. Hill Meaningful Use Info Meaningful Use Diagnoses (Choose all that apply): None applicable Discharge Plan Admission Admit Date/Time: 07/03/22 19:20 Primary Reason for Your Visit: debility due to acute on chronic SDH/craniotomy complicated by dementia Attending Provider: Susie Orourke Consulting Providers: Mazin Rosas Instructions Additional Instructions / Restrictions: 1. When Nadege starts to retain urine she is usually constipated so make sure to keep up with the stool softeners and if she does not have a BM in 3 days give her a laxative. 2. She gets lonely and when this happens she yells a lot and acts out and throws things. She usually calms down if someone goes into her room and talks with her. 3. She has been sleeping well at night on the current drug regimen. 4. The incision is intact and there is no sign of infection at the time of Discharge. She has not complained of a headache recently unless we ask her and she usually says yes. 5. I have stopped some of the regular medications that will not improve quality of life or change longevity of life. Hospice may change the medications so I have given you 15 days of medications with 1 refill in case she is not seen by hospice on the day of DC. 6. Try and encourage increased fluid intake. Her last lab work showed some kidney failure and I elected not to give IV fluids because she is being discharged on hospice. Discharge Orders/Prescriptions Prescriptions: New acetaminophen 500 mg Tablet 1,000 mg PO Q8 PRN (Reason: fever/pain) Qty: 0 0RF amlodipine 10 mg Tablet 10 mg PO BREAKFAST Qty: 15 1RF bisacodyl 10 mg Suppository 10 mg MT .PRN X 1 PRN (Reason: Constipation) Qty: 0 0RF hydralazine 50 mg Tablet 50 mg PO TID Qty: 45 1RF insulin glargine-yfgn 100 unit/mL (3 mL) Insulin Pen 14 unit subcut QHS Qty: 6 0RF Rx Instructions: 14 units at bedtime insulin lispro [Humalog KwikPen Insulin] 100 unit/mL Insulin Pen 12 unit subcut TIDCM Qty: 12 0RF Rx Instructions: 12 units with each meal. levothyroxine 100 mcg Tablet 100 mcg PO DAILY@0600 Qty: 15 1RF sitagliptin phosphate 25 mg tablet 25 mg PO DAILY Qty: 15 1RF carbidopa-levodopa 25-100 mg Tablet 1 tab PO TIDAC Qty: 45 1RF metoprolol succinate 25 mg Tablet Extended Release 24 Hr 75 mg PO BID Qty: 30 1RF nystatin [Nyamyc] 100,000 unit/gram Powder 1 applic topical BID Qty: 0 0RF Protocol: *Topical Application Instructions APPLICATION INSTRUCTIONS: under bilat breasts, abdominal folds, and groin losartan 100 mg Tablet 100 mg PO DAILY Qty: 15 1RF oxycodone 5 mg Tablet 5 mg PO Q8H PRN PRN (Reason: Pain Score 5 or Greater) 7 Days Qty: 20 0RF memantine 5 mg Tablet 5 mg PO DAILY Qty: 15 1RF menthol-zinc oxide [Calmoseptine] 0.44-20.6 % Ointment 1 applic topical BID Qty: 0 0RF Protocol: *Topical Application Instructions APPLICATION INSTRUCTIONS: bilat buttocks and groin quetiapine 25 mg Tablet See Rx Instructions .ROUTE .COMPLEX Qty: 75 1RF Rx Instructions: 12.5 mg (1 tab) orally at 0600 and 1400 and 37.5 mg (3 tabs) at 7 PM polyethylene glycol 3350 17 gram Powder In Packet 17 g PO DAILY Qty: 30 0RF sennosides-docusate sodium [Stool Softener-Stimulant Laxat] 8.6-50 mg Tablet 2 tab PO BID Qty: 60 1RF mirtazapine [Remeron] 15 mg tablet 15 mg PO QHS Qty: 15 1RF Referrals / Follow Up: Lucila Hill [Other] - 08/15/22 2:45 pm (Neuro) Disposition Disposition (needs filled in before D/C Order can be placed): Hospice in Home Charges/Coding Visit Charges Inpatient E&M: 07458 Disch Hosp
== END 2022-07-28 13:45 | disposition hospice, home (50) | DRG 65 ==
PROVIDERS: Admitting Provider Internal Medicine; Visit Provider Internal Medicine
DX: I62.01 Nontraumatic acute subdural hemorrhage (principal); E44.0 Moderate protein-calorie malnutrition; G81.94 Hemiplegia, unspecified affecting left nondominant side; F02.818 Dementia in other diseases classified elsewhere, unspecified severity, with other behavioral disturbance; G20 Parkinson's disease; E86.0 Dehydration; I48.0 Paroxysmal atrial fibrillation; E11.9 Type 2 diabetes mellitus without complications; I62.03 Nontraumatic chronic subdural hemorrhage; Z79.4 Long term (current) use of insulin; E03.9 Hypothyroidism, unspecified; S05.12XA Contusion of eyeball and orbital tissues, left eye, initial encounter; I10 Essential (primary) hypertension; S00.83XA Contusion of other part of head, initial encounter; W06.XXXA Fall from bed, initial encounter; W19.XXXD Unspecified fall, subsequent encounter; S40.012D Contusion of left shoulder, subsequent encounter; R33.9 Retention of urine, unspecified; Z23 Encounter for immunization; Z86.16 Personal history of COVID-19; M81.0 Age-related osteoporosis without current pathological fracture; Z68.28 Body mass index [BMI] 28.0-28.9, adult; Y92.128 Other place in nursing home as the place of occurrence of the external cause; F43.10 Post-traumatic stress disorder, unspecified; T42.6X1A Poisoning by other antiepileptic and sedative-hypnotic drugs, accidental (unintentional), initial encounter
CPT/HCPCS: 36415; 70450; 73060; 74018; 80048; 80053; 81001; 82962; 83735; 84100; 84439; 84443; 85014; 85018; 85025; 85027; 87086; 92507; 92523; 92526; 92610; 93005; 97110; 97112; 97116; 97140; 97162; 97166; 97530; 97535; 97802; G0008; J7030; J7040; 90686; A4216

== ENCOUNTER 2022-08-06 03:19 | Inpatient (IN) | payer MEDICARE, SELFPAY ==
[2022-08-06] VITALS (12 sets, daily range): BP systolic 130–169; BP diastolic 57–90; PULSE 69–81; RESP 14–18; TEMP 36.2–37.4; O2SAT 93–100; BMI 26.6; BMI 25.4
--- NOTE | 2022-08-06 04:49 | EKG12_ITS ---
Test Reason : mental health Blood Pressure : / mmHG Vent. Rate : 076 BPM Atrial Rate : 076 BPM P-R Int : 170 ms QRS Dur : 078 ms QT Int : 426 ms P-R-T Axes : 082 042 133 degrees QTc Int : 479 ms Normal sinus rhythm Nonspecific ST and T wave abnormality Abnormal ECG Confirmed by IRA MARRUFO, CIRO ([id number]), field map editor SNEHA BRITO ([id number]) on 08/08/2022 11:24:35 AM Referred By: Carli Confirmed By:CIRO ROTH MD
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
[2022-08-06 05:27] LABS: Absolute Lymphocyte Count 1.48 X10^3/uL (0.83-4.51); Absolute Neutrophil Count 9.2 X10^3/uL (2.0-7.7); Basophil# 0.02 X10^3/uL; Basophil% 0.2 % (0-1); Eosinophil# 0.04 X10^3/uL; Eosinophils% 0.3 % (0-5); Hematocrit 34.6 % (37-47); Hemoglobin 10.8 g/dL (12.0-15.0); Lymphocyte # 1.48 X10^3/ul (0.83-4.51); Lymphocyte % 12.4 % (19-41); Mean Corp Hgb Conc 31.2 g/dL (32-36); Mean Corpuscular Hgb 28.8 pg (27.0-32.0); Mean Corpuscular Volume 92.3 fL (81-99); Mean Platelet Vol. 11.4 fl (6.2-12.0); Monocyte# 1.16 X10^3/uL; Monocyte% 9.7 % (0-10); NRBC Flagged by Analyzer 0 % (0-5); Neutrophil # 9.22 X10^3/uL (2.7-7.7); Platelet Count 216 K/mm3 (150-450); RBC Distribution Width CV 15.2 % (11.6-14.6); RBC Distribution Width SD 51.7 fl (35.1-43.9); Red Blood Count 3.75 M/mm3 (4.2-5.4)
[2022-08-06 05:37] LABS: Amphetamine Urine VISTA NEGATIVE (<1000 ng/mL); Barbiturate Urine VISTA NEGATIVE (< 200 ng/mL); Benzodiazepine Urine VISTA NEGATIVE (< 200 ng/mL); Cocaine Urine VISTA NEGATIVE (< 300 ng/mL); Ecstacy Urine VISTA NEGATIVE (< 500 ng/mL); Methadone Urine VISTA NEGATIVE (< 300 ng/mL); PCP Urine VISTA NEGATIVE (< 25 ng/mL); THC Urine VISTA NEGATIVE (< 50 ng/mL); Vista UDS pH Range 6
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
[2022-08-06 05:43] LABS: Mucous, Urine 0 SEEN /hpf (<or=2+); Red Blood Cells-Urine 0 SEEN /hpf (0-5); Squamous Epithelial Cells - UA 0 SEEN /hpf (5-10)
[2022-08-06 05:45] LABS: Color, Urine Yellow (Yellow); Glucose, Dipstick 1000 mg/dl (Normal); Ketone-Dipstick 15 mg/dl (Negative); Leukocyte Esterase-Dipstick 100 /ul (Negative); Nitrite-Dipstick Positive (Negative); Occult Blood-Urine 10 /ul (Negative); Protein-Dipstick 30 mg/dl (Negative); Urine Bilirubin Dipstick Negative (Negative); Urine Clarity Sl. Cloudy (Clear); Urine Urobilinogen Normal (Normal); Urine pH 6.5 (5.0 - 8.0)
[2022-08-06 05:45] LABS: Anion Gap 6 (5-15); BUN 11 mg/dL (7-18); BUN/Creat Ratio 13.8 RATIO (10-20); Chloride 110 mmol/L (98-107); EST Glomerular Filtration Rate 73 mL/min (>60); Est Glom Filt Rate - Afr Amer 89 mL/min (>60); Estimated Creatinine Clearance 49.63 ml/min; Glucose 328 mg/dL (74-106); Potassium 3.5 mmol/L (3.5-5.1); Sodium Level 143 mmol/L (136-145)
[2022-08-06 05:52] LABS: Alcohol, Blood (Medical)-Serum < 3.0 mg/dL
--- NOTE | 2022-08-06 05:53 | ED.RN ---
BLOOD WORK & URINE STRAIGHT CATH OBTAINED AT THIS TIME WITHOUT DIFFICULTY
--- NOTE | 2022-08-06 05:55 | ED.RN ---
[facility] # [phone]
[2022-08-06 06:12] LABS: Bacteria 3+ /hpf (None Seen); White Blood Cells 10-25 SEEN /hpf (0-5)
--- NOTE | 2022-08-06 06:13 | ED.RN ---
crisis notified of consult.
[2022-08-06] MEDS: Insulin Lispro 100 UNIT/ML INSULN.PEN 8 UNIT SC (06:47)
[2022-08-06] MEDS: Cephalexin 250 MG Capsule 500 MG PO (06:50)
--- NOTE | 2022-08-06 07:29 | NURSING ---
DR VIGNESH SHEPARD
--- NOTE | 2022-08-06 07:39 | NURSING ---
MED SURG VIGNESH DEMENTIA WITH BEHAVIOR DISTURBANCE
[2022-08-06] MEDS: amLODIPine 10 MG Tablet PO (09:35)
[2022-08-06] MEDS: Senna/Docusate Sodium 1 Tablet 2 TABLET PO (09:35)
[2022-08-06] MEDS: Memantine Hydrochloride 5 MG Tablet PO (09:35)
[2022-08-06] MEDS: RisperiDONE 1 MG Tablet PO ×2 (09:35→18:04)
[2022-08-06] MEDS: Metoprolol(XL)Succ 25 MG Tablet 75 MG PO ×2 (09:35→20:07)
[2022-08-06] MEDS: Losartan Potassium 100 MG Tablet PO (09:35)
[2022-08-06] MEDS: Enoxaparin 40 MG/0.4 ML Syringe SC (09:35)
[2022-08-06] MEDS: Nystatin Powder 15gm Bottle 1 APPLIC TOPICAL ×2 (09:36→20:07)
[2022-08-06] MEDS: LINAGLIPTIN 5 MG TABLET PO (09:36)
[2022-08-06] MEDS: Menthol/Lanolin/Calamine/Znox 113 GM Tube 1 APPLIC TOPICAL ×2 (09:36→20:06)
[2022-08-06] MEDS: Polyethylene Glycol 3350 17 GM PACKET PO (09:37)
[2022-08-06] MEDS: Insulin Lispro 100 UNIT/ML INSULN.PEN 12 UNIT SC ×2 (10:19→16:50)
[2022-08-06] MEDS: Ceftriaxone 1 GM/50 ML BAG IV (10:45)
[2022-08-06] MEDS: Carbidopa/Levodopa 25/100 Tablet PO ×2 (12:24→16:53)
[2022-08-06 12:25] LABS: Bedside Glucose 241 mg/dL (74-106)
[2022-08-06] MEDS: Insulin Lispro 100 UNIT/ML INSULN.PEN SC ×2 (12:26→16:51)
[2022-08-06 13:15] LABS: Bedside Glucose 167 mg/dL (74-106)
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
[2022-08-06] MEDS: hydrALAZINE 50 MG Tablet PO ×2 (15:26→20:06)
[2022-08-06 18:25] LABS: Bedside Glucose 218 mg/dL (74-106)
[2022-08-06] MEDS: Insulin Glargine-YFGN 100 UNIT/ML Pen 14 UNIT SC (20:06)
[2022-08-06] MEDS: Mirtazapine 15 MG Tablet PO (20:07)
[2022-08-07] VITALS (12 sets, daily range): BP systolic 113–178; BP diastolic 46–64; PULSE 64–70; RESP 16–18; TEMP 36.7–36.9; O2SAT 92–98
[2022-08-07 06:26] LABS: Bedside Glucose 161 mg/dL (74-106)
[2022-08-07] MEDS: Levothyroxine 100 MCG Tablet PO (06:33)
[2022-08-07] MEDS: hydrALAZINE 50 MG Tablet PO ×2 (06:35→21:24)
[2022-08-07] MEDS: Insulin Lispro 100 UNIT/ML INSULN.PEN SC ×3 (07:45→17:25)
[2022-08-07] MEDS: Insulin Lispro 100 UNIT/ML INSULN.PEN 12 UNIT SC ×3 (07:46→17:24)
[2022-08-07] MEDS: Carbidopa/Levodopa 25/100 Tablet PO ×3 (07:52→17:25)
[2022-08-07] MEDS: amLODIPine 10 MG Tablet PO (07:52)
[2022-08-07 08:51] LABS: Bedside Glucose 237 mg/dL (74-106)
[2022-08-07] MEDS: Menthol/Lanolin/Calamine/Znox 113 GM Tube 1 APPLIC TOPICAL ×2 (09:28→21:24)
[2022-08-07] MEDS: Enoxaparin 40 MG/0.4 ML Syringe SC (09:29)
[2022-08-07] MEDS: Losartan Potassium 100 MG Tablet PO (09:29)
[2022-08-07] MEDS: Polyethylene Glycol 3350 17 GM PACKET PO (09:29)
[2022-08-07] MEDS: Nystatin Powder 15gm Bottle 1 APPLIC TOPICAL ×2 (09:29→21:25)
[2022-08-07] MEDS: Memantine Hydrochloride 5 MG Tablet PO (09:30)
[2022-08-07] MEDS: RisperiDONE 1 MG Tablet PO ×2 (09:30→21:26)
[2022-08-07] MEDS: Ceftriaxone 1 GM/50 ML BAG IV (09:30)
[2022-08-07] MEDS: Metoprolol(XL)Succ 25 MG Tablet 75 MG PO ×2 (09:31→21:27)
[2022-08-07] MEDS: Senna/Docusate Sodium 1 Tablet 2 TABLET PO ×2 (09:31→21:26)
[2022-08-07] MEDS: LINAGLIPTIN 5 MG TABLET PO (09:31)
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
--- NOTE | 2022-08-07 10:23 | PN.HOSP_ITS ---
Subjective Subjective Patient is an 81-year-old lady with history of acute on chronic subdural hematoma who was discharged from the rehab unit on 07/27/2022 to home with hospice brought back to the emergency department with agitation. Patient was found to have abnormal urinalysis consistent with cystitis Objective Data Objective Data Vital Signs: Vital Signs Temp Pulse Resp BP Pulse Ox O2 Del Method 98.1 F 67 18 122/64 H 98 Room Air 08/07/22 07:56 08/07/22 09:31 08/07/22 07:56 08/07/22 09:31 08/07/22 07:56 08/07/22 08:00 Oxygen Delivery Method Room Air Weight: 69.5 kg Body Mass Index (BMI) 25.4 Intake & Output: Intake and Output for Last 24 Hours 08/05/22 08/06/22 08/07/22 23:59 23:59 23:59 Intake Total 530 / 680 270 / 270 Balance 530 / 680 270 / 270 Lab / Micro Data Result Diagrams: 08/06/22 05:07 08/06/22 05:07 Labs: Laboratory Results - last 24 hr 08/06/22 10:18: POC Glucose 241 H 08/06/22 12:14: POC Glucose 167 H 08/06/22 16:49: POC Glucose 218 H 08/06/22 20:05: POC Glucose 161 H 08/07/22 07:44: POC Glucose 237 H Micro: Microbiology 08/06/22 05:00 Nasal Secretion SARS-CoV-2 Antigen (Rapid) - Final Physical Exam Narrative GENERAL: Patient in no distress HEENT: Atraumatic; normocephalic EYES; Anicteric, Normal Conjunctiva NECK; supple, normal thyroid, RESPIRATORY: Diminished to auscultation CARDIOVASCULAR: Regular S1 S2, GI: soft, normoactive bowel sounds, : No Renal angle tenderness; EXTREMITIES: No edema, no clubbing, MUSCULOSKELETAL: no muscle wasting NEURO: Awake; no lateralizing signs. SKIN: No Rash PSYCH; Flat affect Assessment & Plan Assessment/Plan (1) Urinary tract infection: (2) Dementia with behavioral disturbance: PLAN: Plan Patient is an 81-year-old lady with history of acute on chronic subdural hematoma who was discharged from the rehab unit on 07/27/2022 to home with hospice brought back to the emergency department with agitation. Patient was found to have abnormal urinalysis consistent with cystitis 1. Dementia with behavioral agitation ? Possibly for stated by patient UTI discontinue with Remeron as well as Risperdal patient is on Namenda at home continue as well 3. Acute cystitis ? Patient is on Rocephin 3. 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 Supportive care 4. Hypertension - Blood pressure controlled, home medications continued with dose adjustment as needed 5. Physical deconditioning - Requested for PT OT eval and social media assistant to assist with discharge planning 6. Diabetes mellitus type II -patient's oral hypoglycemics held. Placed on long acting insulin, Accu-Cheks a.c. and at bedtime and covered with sliding scale insulin 7. Parkinson's disease ? Patient is on Sinemet did continue 8. Hypothyroidism - Patient is on levothyroxine home dose continued 9. DVT prophylaxis ? SC enoxaparin -Continue enoxaparin CODE STATUS -DNR CC this patient presents from hospice Charges/Coding Visit Charges Inpatient E&M: 58204 Subs Hosp L2
--- NOTE | 2022-08-07 10:30 | CASEMGMT ---
Discharge Chemist Inorganic This justowriter operator sent referral to [facility] and [facility] via [facility]. Crow ROBERTSON Machine Woodworking Sander
[2022-08-07 11:55] LABS: Bedside Glucose 333 mg/dL (74-106)
--- NOTE | 2022-08-07 13:53 | CASEMGMT ---
Discharge Manager Retention [facility] can't accept at this time and [facility] declined. This caption writer asked GO Choe for another patient choice. Crow ROBERTSON Leather Heel Breaster
--- NOTE | 2022-08-07 15:59 | CASEMGMT ---
Social Work SW reached out to pt son, Ruddy for additional SNF choices. Ruddy shared choices of [facility], [facility], and [facility]. Ruddy had not particular preference on order. Due to nature of pt aggression and combative behavior and previous denials, SW sent referral to all three facilities at this time. PLAN: SNF, pending acceptance ARABELLA Carvajal
[2022-08-07 17:50] LABS: Bedside Glucose 160 mg/dL (74-106)
[2022-08-07] MEDS: Mirtazapine 15 MG Tablet PO (21:26)
[2022-08-07] MEDS: Insulin Glargine-YFGN 100 UNIT/ML Pen 14 UNIT SC (21:41)
[2022-08-07 22:05] LABS: Bedside Glucose 151 mg/dL (74-106)
[2022-08-08] VITALS (12 sets, daily range): BP systolic 145–154; BP diastolic 58–76; PULSE 63–75; RESP 18; TEMP 36.7–37.1; O2SAT 94–99
[2022-08-08] MEDS: Levothyroxine 100 MCG Tablet PO (06:16)
[2022-08-08] MEDS: hydrALAZINE 50 MG Tablet PO ×3 (06:16→21:40)
[2022-08-08 06:34] LABS: Absolute Lymphocyte Count 1.98 X10^3/uL (0.83-4.51); Absolute Neutrophil Count 5.4 X10^3/uL (2.0-7.7); Basophil# 0.03 X10^3/uL; Basophil% 0.4 % (0-1); Eosinophils% 1.2 % (0-5); Hematocrit 35.3 % (37-47); Lymphocyte # 1.98 X10^3/ul (0.83-4.51); Lymphocyte % 23.3 % (19-41); Mean Corp Hgb Conc 31.2 g/dL (32-36); Mean Corpuscular Hgb 28.5 pg (27.0-32.0); Mean Corpuscular Volume 91.5 fL (81-99); Mean Platelet Vol. 11.3 fl (6.2-12.0); Monocyte# 0.92 X10^3/uL; Monocyte% 10.8 % (0-10); NRBC Flagged by Analyzer 0 % (0-5); Neutrophil # 5.43 X10^3/uL (2.7-7.7); Neutrophil % 63.9 % (47-70); Platelet Count 214 K/mm3 (150-450); RBC Distribution Width CV 14.9 % (11.6-14.6); RBC Distribution Width SD 50.1 fl (35.1-43.9); Red Blood Count 3.86 M/mm3 (4.2-5.4); White Blood Count 8.5 K/mm3 (4.4-11.0)
[2022-08-08 07:03] LABS: Anion Gap 6 (5-15); BUN 22 mg/dL (7-18); Calcium,Total 8.8 mg/dL (8.5-10.1); Chloride 106 mmol/L (98-107); Creatinine, Serum 1.05 mg/dL (0.55-1.02); EST Glomerular Filtration Rate 53 mL/min (>60); Est Glom Filt Rate - Afr Amer 65 mL/min (>60); Estimated Creatinine Clearance 37.81 ml/min; Glucose 198 mg/dL (74-106); Potassium 3.8 mmol/L (3.5-5.1); Sodium Level 141 mmol/L (136-145)
--- NOTE | 2022-08-08 07:17 | PN.HOSP_ITS ---
Subjective Subjective Patient seen per nursing staff has been very cooperative. Urine cultures reviewed antibiotic therapy subsequently adjusted Objective Data Objective Data Vital Signs: Vital Signs Temp Pulse Resp BP Pulse Ox O2 Del Method 98.2 F 63 18 148/63 H 96 Room Air 08/08/22 02:00 08/08/22 06:19 08/08/22 02:00 08/08/22 06:19 08/08/22 02:00 08/08/22 02:00 Oxygen Delivery Method Room Air Weight: 69.5 kg Body Mass Index (BMI) 25.4 Intake & Output: Intake and Output for Last 24 Hours 08/06/22 08/07/22 08/08/22 23:59 23:59 23:59 Intake Total 530 / 680 320 / 320 Balance 530 / 680 320 / 320 Lab / Micro Data Result Diagrams: 08/08/22 06:25 08/08/22 06:25 Labs: Laboratory Results - last 24 hr 08/07/22 07:44: POC Glucose 237 H 08/07/22 11:28: POC Glucose 333 H 08/07/22 17:23: POC Glucose 160 H 08/07/22 21:40: POC Glucose 151 H 08/08/22 06:25: WBC 8.5, RBC 3.86 L, Hgb 11.0 L, Hct 35.3 L, MCV 91.5, MCH 28.5, MCHC 31.2 L, RDW Std Deviation 50.1 H, RDW Coeff of Darius 14.9 H, Plt Count 214, MPV 11.3, Immature Gran % (Auto) 0.400, Neut % (Auto) 63.9, Lymph % (Auto) 23.3, [place] % (Auto) 10.8 H, Eos % (Auto) 1.2, Baso % (Auto) 0.4, Absolute Neuts (auto) 5.4, Absolute Lymphs (auto) 1.98, Nucleated RBC % 0 08/08/22 06:25: Sodium 141, Potassium 3.8, Chloride 106, Carbon Dioxide 29.0, Anion Gap 6, BUN 22 H, Creatinine 1.05 H, Estim Creat Clear Calc 37.81, Est GFR (MDRD) Af Amer 65, Est GFR (MDRD) Non-Af 53 L, BUN/Creatinine Ratio 21.0 H, Glucose 198 H, Calcium 8.8, Phosphorus 4.0, Magnesium 2.0 Micro: Microbiology 08/06/22 05:14 Urine, Catheterized Urine Culture - Preliminary Staphylococcus species 08/06/22 05:00 Nasal Secretion SARS-CoV-2 Antigen (Rapid) - Final Physical Exam Narrative GENERAL: Patient in no distress HEENT: Atraumatic; normocephalic EYES; Anicteric, Normal Conjunctiva NECK; supple, normal thyroid, RESPIRATORY: Diminished to auscultation CARDIOVASCULAR: Regular S1 S2, GI: soft, normoactive bowel sounds, : No Renal angle tenderness; EXTREMITIES: No edema, no clubbing, MUSCULOSKELETAL: no muscle wasting NEURO: Awake; no lateralizing signs. SKIN: No Rash PSYCH; Flat affect Assessment & Plan Assessment/Plan (1) Urinary tract infection: (2) Dementia with behavioral disturbance: PLAN: Plan Patient is an 81-year-old lady with history of acute on chronic subdural hematoma who was discharged from the rehab unit on 07/27/2022 to home with hospice brought back to the emergency department with agitation. Patient was found to have abnormal urinalysis consistent with cystitis 1. Dementia with behavioral agitation ? Possibly for stated by patient UTI discontinue with Remeron as well as Risperdal patient is on Namenda at home continue as well 3. Acute cystitis ? Patient is on Rocephin ? Urine cultures came back positive for staph epi Rocephin discontinued started on p.o. Doxy 3. 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 Supportive care 4. Hypertension - Blood pressure controlled, home medications continued with dose adjustment as needed 5. Physical deconditioning - Requested for PT OT eval and social work program coordinator to assist with discharge planning 6. Diabetes mellitus type II -patient's oral hypoglycemics held. Placed on long acting insulin, Accu-Cheks a.c. and at bedtime and covered with sliding scale insulin 7. Parkinson's disease ? Patient is on Sinemet did continue 8. Hypothyroidism - Patient is on levothyroxine home dose continued 9. DVT prophylaxis ? SC enoxaparin Charges/Coding Visit Charges Inpatient E&M: 08513 Subs Hosp L2
[2022-08-08] MEDS: Insulin Lispro 100 UNIT/ML INSULN.PEN 12 UNIT SC ×2 (07:52→12:38)
[2022-08-08] MEDS: amLODIPine 10 MG Tablet PO (07:53)
[2022-08-08] MEDS: Insulin Lispro 100 UNIT/ML INSULN.PEN SC ×2 (07:53→12:38)
[2022-08-08] MEDS: Carbidopa/Levodopa 25/100 Tablet PO ×2 (07:53→12:37)
[2022-08-08] MEDS: Losartan Potassium 100 MG Tablet PO (07:54)
[2022-08-08] MEDS: Menthol/Lanolin/Calamine/Znox 113 GM Tube 1 APPLIC TOPICAL ×2 (07:54→21:40)
[2022-08-08] MEDS: Polyethylene Glycol 3350 17 GM PACKET PO (07:55)
[2022-08-08] MEDS: Nystatin Powder 15gm Bottle 1 APPLIC TOPICAL ×2 (07:55→21:42)
[2022-08-08] MEDS: Enoxaparin 40 MG/0.4 ML Syringe SC (07:55)
[2022-08-08] MEDS: RisperiDONE 1 MG Tablet PO ×2 (07:56→21:43)
[2022-08-08] MEDS: Memantine Hydrochloride 5 MG Tablet PO (07:56)
[2022-08-08] MEDS: Senna/Docusate Sodium 1 Tablet 2 TABLET PO ×2 (07:56→21:43)
[2022-08-08] MEDS: Metoprolol(XL)Succ 25 MG Tablet 75 MG PO ×2 (07:57→21:43)
[2022-08-08] MEDS: LINAGLIPTIN 5 MG TABLET PO (07:58)
[2022-08-08] MEDS: Doxycycline 100 MG CAPSULE PO ×2 (08:00→21:41)
--- NOTE | 2022-08-08 10:39 | CASEMGMT ---
Addendum entered by Daija Schwartz 08/08/22 11:27: GO sent referral to [facility] and [facility]. ARABELLA Carvajal Addendum entered by Daija Schwartz 08/08/22 11:15: [facility] is also not able to accept pt. GO placed call to pt son, Ruddy. Ruddy was informed of denial for SNFs on the list. SW read other options from [facility] list to Ruddy. Ruddy stated next preference would be [facility] or [facility] in [place]. SW to send referrals to these SNFs. Ruddy also stated if these facilities also decline pt to check with [facility] [place] or [facility]. PLAN: Send referral to alternative SNF choices. [facility] vs. [facility]. ARABELLA Carvajal Original Note: Social Work SW received messages from [facility], [facility], [facility], and [facility]. All facilities responded that patient's care exceeds the facilities capacity. Many included concern for pt behaviors. [facility] is pending and has not yet reviewed pt referral. GO will call pt family today to attempt gathering additional options for SNF. PLAN: SNF, pending acceptance ARABELLA Carvajal
[2022-08-08 11:50] LABS: Bedside Glucose 218 mg/dL (74-106)
--- NOTE | 2022-08-08 13:09 | CASEMGMT ---
Discharge Skin Washer [facility] accepted patient. GO Choe notified. Crow ROBERTSON Fabric Worker
--- NOTE | 2022-08-08 13:16 | CASEMGMT ---
Discharge Primary Care Nurse Pre-cert has been started at [facility]. Crow ROBERTSON Farmer [employer]
--- NOTE | 2022-08-08 14:25 | CASEMGMT ---
Social Work SW called pt son, Ruddy to update that [facility] has accepted pt. Ruddy voiced understanding. PLAN: cal Dodge LSW
[2022-08-08] MEDS: Insulin Glargine-YFGN 100 UNIT/ML Pen 14 UNIT SC (21:42)
[2022-08-08] MEDS: Mirtazapine 15 MG Tablet PO (21:43)
[2022-08-08] MEDS: Acetaminophen 500 MG Tablet 1000 MG PO (21:48)
[2022-08-08] MEDS: oxyCODONE 5 MG Tablet PO (21:49)
[2022-08-08 22:10] LABS: Bedside Glucose 294 mg/dL (74-106)
[2022-08-09] VITALS (8 sets, daily range): BP systolic 119–154; BP diastolic 53–70; PULSE 61–86; RESP 18; TEMP 36.6–36.9; O2SAT 95–97
[2022-08-09] MEDS: Levothyroxine 100 MCG Tablet PO (06:37)
[2022-08-09] MEDS: hydrALAZINE 50 MG Tablet PO ×3 (06:37→21:24)
--- NOTE | 2022-08-09 07:04 | PCM.PN.HOSP ---
Subjective Subjective Patient seen patient is very cooperative. Objective Data Objective Data Vital Signs: Vital Signs Temp Pulse Resp BP Pulse Ox O2 Del Method 97.9 F 61 18 139/53 H 96 Room Air 08/09/22 03:00 08/09/22 06:37 08/09/22 03:00 08/09/22 06:37 08/09/22 03:00 08/09/22 03:00 Oxygen Delivery Method Room Air Weight: 69.5 kg Body Mass Index (BMI) 25.4 Intake & Output: Intake and Output for Last 24 Hours 08/07/22 08/08/22 08/09/22 23:59 23:59 23:59 Intake Total 320 / 320 350 / 570 220 / 220 Balance 320 / 320 350 / 570 220 / 220 Lab / Micro Data Result Diagrams: 08/09/22 06:50 08/09/22 06:50 Labs: Laboratory Results - last 24 hr 08/08/22 11:29: POC Glucose 218 H 08/08/22 21:38: POC Glucose 294 H Micro: Microbiology 08/06/22 05:14 Urine, Catheterized Urine Culture - Final Staphylococcus epidermidis 08/06/22 05:00 Nasal Secretion SARS-CoV-2 Antigen (Rapid) - Final Physical Exam Narrative GENERAL: Patient in no distress HEENT: Atraumatic; normocephalic EYES; Anicteric, Normal Conjunctiva NECK; supple, normal thyroid, RESPIRATORY: Diminished to auscultation CARDIOVASCULAR: Regular S1 S2, GI: soft, normoactive bowel sounds, : No Renal angle tenderness; EXTREMITIES: No edema, no clubbing, MUSCULOSKELETAL: no muscle wasting NEURO: Awake; no lateralizing signs. SKIN: No Rash PSYCH; Flat affect Assessment & Plan Assessment/Plan (1) Urinary tract infection: (2) Dementia with behavioral disturbance: PLAN: Plan Patient is an 81-year-old lady with history of acute on chronic subdural hematoma who was discharged from the rehab unit on 07/27/2022 to home with hospice brought back to the emergency department with agitation. Patient was found to have abnormal urinalysis consistent with cystitis 1. Dementia with behavioral agitation ? Possibly for stated by patient UTI discontinue with Remeron as well as Risperdal patient is on Namenda at home continue as well ? 08/09/2022. Patient cooperative. 3. Acute cystitis ? Patient is on Rocephin ? Urine cultures came back positive for staph epi Rocephin discontinued started on p.o. Doxy 3. 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 Supportive care 4. Hypertension - Blood pressure controlled, home medications continued with dose adjustment as needed 5. Physical deconditioning - Requested for PT OT eval and delinquency prevention social worker to assist with discharge planning ? 08/09/2022 awaiting transfer to retirement facility pending insurance precertification 6. Diabetes mellitus type II -patient's oral hypoglycemics held. Placed on long acting insulin, Accu-Cheks a.c. and at bedtime and covered with sliding scale insulin 7. Parkinson's disease ? Patient is on Sinemet did continue 8. Hypothyroidism - Patient is on levothyroxine home dose continued 9. DVT prophylaxis ? SC enoxaparin Charges/Coding Visit Charges Inpatient E&M: 71001 Subs Hosp L2
[2022-08-09 07:51] LABS: Absolute Neutrophil Count 4.3 X10^3/uL (2.0-7.7); Basophil# 0.03 X10^3/uL; Basophil% 0.4 % (0-1); Eosinophil# 0.08 X10^3/uL; Eosinophils% 1.1 % (0-5); Hematocrit 32.8 % (37-47); Hemoglobin 10.4 g/dL (12.0-15.0); Lymphocyte % 24.4 % (19-41); Mean Corp Hgb Conc 31.7 g/dL (32-36); Mean Corpuscular Hgb 28.7 pg (27.0-32.0); Mean Corpuscular Volume 90.4 fL (81-99); Mean Platelet Vol. 11.6 fl (6.2-12.0); Monocyte# 0.78 X10^3/uL; Monocyte% 11.2 % (0-10); NRBC Flagged by Analyzer 0 % (0-5); Neutrophil # 4.34 X10^3/uL (2.7-7.7); Neutrophil % 62.2 % (47-70); Platelet Count 204 K/mm3 (150-450); RBC Distribution Width CV 14.5 % (11.6-14.6); RBC Distribution Width SD 48.3 fl (35.1-43.9); Red Blood Count 3.63 M/mm3 (4.2-5.4)
[2022-08-09] MEDS: Carbidopa/Levodopa 25/100 Tablet PO ×3 (08:05→17:47)
[2022-08-09] MEDS: Menthol/Lanolin/Calamine/Znox 113 GM Tube 1 APPLIC TOPICAL ×2 (08:06→21:22)
[2022-08-09] MEDS: Doxycycline 100 MG CAPSULE PO ×2 (08:06→21:24)
[2022-08-09] MEDS: amLODIPine 10 MG Tablet PO (08:06)
[2022-08-09] MEDS: Nystatin Powder 15gm Bottle 1 APPLIC TOPICAL ×2 (08:07→21:23)
[2022-08-09] MEDS: Enoxaparin 40 MG/0.4 ML Syringe SC (08:07)
[2022-08-09] MEDS: Polyethylene Glycol 3350 17 GM PACKET PO (08:07)
[2022-08-09] MEDS: Losartan Potassium 100 MG Tablet PO (08:07)
[2022-08-09] MEDS: RisperiDONE 1 MG Tablet PO ×2 (08:08→21:24)
[2022-08-09] MEDS: Memantine Hydrochloride 5 MG Tablet PO (08:08)
[2022-08-09] MEDS: Senna/Docusate Sodium 1 Tablet 2 TABLET PO ×2 (08:09→21:25)
[2022-08-09] MEDS: Metoprolol(XL)Succ 25 MG Tablet 75 MG PO ×2 (08:09→21:24)
[2022-08-09] MEDS: LINAGLIPTIN 5 MG TABLET PO (08:10)
[2022-08-09 08:15] LABS: Anion Gap 5 (5-15); BUN 23 mg/dL (7-18); BUN/Creat Ratio 24.3 RATIO (10-20); Calcium,Total 9.1 mg/dL (8.5-10.1); Chloride 106 mmol/L (98-107); Creatinine, Serum 0.95 mg/dL (0.55-1.02); EST Glomerular Filtration Rate 60 mL/min (>60); Est Glom Filt Rate - Afr Amer 73 mL/min (>60); Estimated Creatinine Clearance 41.79 ml/min; Glucose 252 mg/dL (74-106); Potassium 4.3 mmol/L (3.5-5.1); Sodium Level 139 mmol/L (136-145)
[2022-08-09] MEDS: Insulin Lispro 100 UNIT/ML INSULN.PEN 12 UNIT SC ×3 (09:28→17:46)
[2022-08-09] MEDS: Insulin Lispro 100 UNIT/ML INSULN.PEN SC ×2 (09:28→12:06)
--- NOTE | 2022-08-09 10:21 | CASEMGMT ---
Discharge Beater Operator Pre-cert is still pending per Nafisa at [facility]. Crow ROBERTSON House Detective
--- NOTE | 2022-08-09 12:09 | CASEMGMT ---
Social Work SW received pc from pt Ashlie ESPINO. Ashlie expressed concern with pt going to [facility], as Ashlie has had relatives in this SNF who have had bad experiences. SW listened to Ashlie's concerns and validated thoughts on the matter. SW explained to Ashlie that due to pt's recent violent behaviors that pt has been declined by six other SNFs in the community. SW explained to Ashlie that based on pt's son, Ruddy's request, that [facility] was included on the list and is the only accepting facility at this time and that insurance authorization has been started through this facility. Ashlie requested this SW send referral to [facility]. SW explained to Aslhie this can be done but precert at [facility] would be cancelled and then if [facility] declines to accept pt there is a chance [facility] would not accept pt again. SW willing to accommodate family wishes due to high concern but after SW explained Ashlie agreeable to continuing with [facility]. SW then explained if pt gets to [facility] and family is not happy with pt care family can collaborate with SW there to transfer pt to new facility. Ashlie voiced understanding. PLAN: [facility], pending precert ARABELLA Carvajal
[2022-08-09 12:25] LABS: Bedside Glucose 202 mg/dL (74-106)
--- NOTE | 2022-08-09 12:58 | CASEMGMT ---
Social Work GO received VM from Evelyn, from . Evelyn discussed had a conversation with family and had some questions pertaining to ongoing Hospice care. GO called Evelyn back and left with contact number. ARABELLA Carvajal
--- NOTE | 2022-08-09 13:07 | CASEMGMT ---
Social Work SW spoke to pt son, Ruddy, who stated does not believe pt has HCPOA/LW documents. Pt is unreliable historian and not able to answer. ARABELLA Carvajal
--- NOTE | 2022-08-09 14:30 | CASEMGMT ---
Social work SW called [facility] worker, Evelyn ). Sw updated pt pending precert for admit to [facility] for skilled level of care. Evelyn stated if pt goes skilled that Hospice would place services on hold until skilled stay is complete. If pt denied and family opts to private pay, Hospice will continue as normal. Evelyn shared would follow up with pt family to get further updates from now on. Daija Schwartz, ARABELLA
[2022-08-09] MEDS: 0.9% Saline Lock 10 ML Syringe IV (21:21)
[2022-08-09] MEDS: Mirtazapine 15 MG Tablet PO (21:24)
[2022-08-09] MEDS: Insulin Glargine-YFGN 100 UNIT/ML Pen 14 UNIT SC (21:25)
[2022-08-09 23:41] LABS: Bedside Glucose 288 mg/dL (74-106)
[2022-08-10] VITALS (10 sets, daily range): BP systolic 108–133; BP diastolic 45–60; PULSE 59–62; RESP 18; TEMP 36.6; O2SAT 97–100
[2022-08-10] MEDS: hydrALAZINE 50 MG Tablet PO ×2 (06:49→14:35)
[2022-08-10] MEDS: Levothyroxine 100 MCG Tablet PO (06:49)
[2022-08-10 07:19] LABS: Absolute Neutrophil Count 4.8 X10^3/uL (2.0-7.7); Basophil# 0.03 X10^3/uL; Basophil% 0.4 % (0-1); Eosinophil# 0.07 X10^3/uL; Eosinophils% 0.9 % (0-5); Hematocrit 34.1 % (37-47); Hemoglobin 10.5 g/dL (12.0-15.0); Lymphocyte % 25.5 % (19-41); Mean Corp Hgb Conc 30.8 g/dL (32-36); Mean Corpuscular Hgb 28.3 pg (27.0-32.0); Mean Corpuscular Volume 91.9 fL (81-99); Mean Platelet Vol. 11.6 fl (6.2-12.0); Monocyte# 0.87 X10^3/uL; Monocyte% 11.1 % (0-10); NRBC Flagged by Analyzer 0 % (0-5); Neutrophil % 61.3 % (47-70); Platelet Count 223 K/mm3 (150-450); RBC Distribution Width CV 14.7 % (11.6-14.6); RBC Distribution Width SD 49.8 fl (35.1-43.9); Red Blood Count 3.71 M/mm3 (4.2-5.4); White Blood Count 7.8 K/mm3 (4.4-11.0)
[2022-08-10 07:40] LABS: Anion Gap 6 (5-15); BUN 23 mg/dL (7-18); BUN/Creat Ratio 23.6 RATIO (10-20); Calcium,Total 8.9 mg/dL (8.5-10.1); Chloride 106 mmol/L (98-107); Creatinine, Serum 0.97 mg/dL (0.55-1.02); EST Glomerular Filtration Rate 58 mL/min (>60); Est Glom Filt Rate - Afr Amer 71 mL/min (>60); Estimated Creatinine Clearance 40.93 ml/min; Glucose 225 mg/dL (74-106); Potassium 4.1 mmol/L (3.5-5.1); Sodium Level 140 mmol/L (136-145)
--- NOTE | 2022-08-10 07:54 | PN.HOSP_ITS ---
Subjective Subjective Patient seen resting comfortably. Per nursing staff she did behave very well during the night. Awaiting insurance precertification prior to transfer to long-term facility Objective Data Objective Data Vital Signs: Vital Signs Temp Pulse Resp BP Pulse Ox O2 Del Method 98 F 59 L 18 132/60 H 98 Room Air 08/10/22 04:14 08/10/22 06:49 08/10/22 04:14 08/10/22 06:49 08/10/22 04:14 08/10/22 04:14 Oxygen Delivery Method Room Air Weight: 69.5 kg Body Mass Index (BMI) 25.4 Intake & Output: Intake and Output for Last 24 Hours 08/08/22 08/09/22 08/10/22 23:59 23:59 23:59 Intake Total 350 / 570 520 / 520 100 / 100 Balance 350 / 570 520 / 520 100 / 100 Lab / Micro Data Result Diagrams: 08/10/22 06:05 08/10/22 06:05 Labs: Laboratory Results - last 24 hr 08/09/22 06:50: Sodium 139, Potassium 4.3, Chloride 106, Carbon Dioxide 28.0, Anion Gap 5, BUN 23 H, Creatinine 0.95, Estim Creat Clear Calc 41.79, Est GFR (MDRD) Af Amer 73, Est GFR (MDRD) Non-Af 60, BUN/Creatinine Ratio 24.3 H, Glucose 252 H, Calcium 9.1 08/09/22 12:04: POC Glucose 202 H 08/09/22 21:20: POC Glucose 288 H 08/10/22 06:05: WBC 7.8, RBC 3.71 L, Hgb 10.5 L, Hct 34.1 L, MCV 91.9, MCH 28.3, MCHC 30.8 L, RDW Std Deviation 49.8 H, RDW Coeff of Darius 14.7 H, Plt Count 223, MPV 11.6, Immature Gran % (Auto) 0.800, Neut % (Auto) 61.3, Lymph % (Auto) 25.5, [place] % (Auto) 11.1 H, Eos % (Auto) 0.9, Baso % (Auto) 0.4, Absolute Neuts (auto) 4.8, Absolute Lymphs (auto) 2.00, Nucleated RBC % 0 08/10/22 06:05: Sodium 140, Potassium 4.1, Chloride 106, Carbon Dioxide 28.0, Anion Gap 6, BUN 23 H, Creatinine 0.97, Estim Creat Clear Calc 40.93, Est GFR (MDRD) Af Amer 71, Est GFR (MDRD) Non-Af 58 L, BUN/Creatinine Ratio 23.6 H, Glucose 225 H, Calcium 8.9 Micro: Microbiology 08/06/22 05:14 Urine, Catheterized Urine Culture - Final Staphylococcus epidermidis 08/06/22 05:00 Nasal Secretion SARS-CoV-2 Antigen (Rapid) - Final Physical Exam Narrative GENERAL: Patient in no distress HEENT: Atraumatic; normocephalic EYES; Anicteric, Normal Conjunctiva NECK; supple, normal thyroid, RESPIRATORY: Diminished to auscultation CARDIOVASCULAR: Regular S1 S2, GI: soft, normoactive bowel sounds, : No Renal angle tenderness; EXTREMITIES: No edema, no clubbing, MUSCULOSKELETAL: no muscle wasting NEURO: Awake; no lateralizing signs. SKIN: No Rash PSYCH; Flat affect Assessment & Plan Assessment/Plan (1) Urinary tract infection: (2) Dementia with behavioral disturbance: PLAN: Plan Patient is an 81-year-old lady with history of acute on chronic subdural hematoma who was discharged from the rehab unit on 07/27/2022 to home with hospice brought back to the emergency department with agitation. Patient was found to have abnormal urinalysis consistent with cystitis 1. Dementia with behavioral agitation ? Possibly for stated by patient UTI discontinue with Remeron as well as Risperdal patient is on Namenda at home continue as well ? 08/09/2022. Patient cooperative. 08/10/2022; Patient seen resting comfortably. Per nursing staff she did behave very well during the night. Awaiting insurance precertification prior to transfer to long-term facility 3. Acute cystitis ? Patient is on Rocephin ? Urine cultures came back positive for staph epi Rocephin discontinued started on p.o. Doxy 3. 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 Supportive care 4. Hypertension - Blood pressure controlled, home medications continued with dose adjustment as needed 5. Physical deconditioning - Requested for PT OT eval and social media marketing analyst to assist with discharge planning ? 08/09/2022 awaiting transfer to long-term facility pending insurance precertification 6. Diabetes mellitus type II -patient's oral hypoglycemics held. Placed on long acting insulin, Accu-Cheks a.c. and at bedtime and covered with sliding scale insulin 7. Parkinson's disease ? Patient is on Sinemet did continue 8. Hypothyroidism - Patient is on levothyroxine home dose continued 9. DVT prophylaxis ? SC enoxaparin Charges/Coding Visit Charges Inpatient E&M: 13027 Subs Hosp L2
[2022-08-10] MEDS: Metoprolol(XL)Succ 25 MG Tablet 75 MG PO (08:04)
[2022-08-10] MEDS: LINAGLIPTIN 5 MG TABLET PO (08:04)
[2022-08-10] MEDS: Doxycycline 100 MG CAPSULE PO (08:05)
[2022-08-10] MEDS: Memantine Hydrochloride 5 MG Tablet PO (08:05)
[2022-08-10] MEDS: Senna/Docusate Sodium 1 Tablet 2 TABLET PO (08:05)
[2022-08-10] MEDS: Losartan Potassium 100 MG Tablet PO (08:05)
[2022-08-10] MEDS: RisperiDONE 1 MG Tablet PO (08:05)
[2022-08-10] MEDS: Enoxaparin 40 MG/0.4 ML Syringe SC (08:06)
[2022-08-10] MEDS: Carbidopa/Levodopa 25/100 Tablet PO ×3 (08:06→16:04)
[2022-08-10] MEDS: Polyethylene Glycol 3350 17 GM PACKET PO (08:06)
[2022-08-10] MEDS: amLODIPine 10 MG Tablet PO (08:06)
[2022-08-10] MEDS: Menthol/Lanolin/Calamine/Znox 113 GM Tube 1 APPLIC TOPICAL (08:12)
[2022-08-10] MEDS: Nystatin Powder 15gm Bottle 1 APPLIC TOPICAL (08:12)
[2022-08-10] MEDS: Insulin Lispro 100 UNIT/ML INSULN.PEN 12 UNIT SC ×3 (08:15→16:04)
[2022-08-10] MEDS: Insulin Lispro 100 UNIT/ML INSULN.PEN SC ×2 (08:16→11:05)
[2022-08-10 09:16] LABS: Bedside Glucose 255 mg/dL (74-106)
[2022-08-10 11:36] LABS: Bedside Glucose 206 mg/dL (74-106)
--- NOTE | 2022-08-10 13:33 | CASEMGMT ---
Discharge Linseed Oil Refiner Pre-cert at [facility] has been obtained. GO Galindo notified. Crow ROBERTSON Ross Furnace Operator
--- NOTE | 2022-08-10 14:10 | TREXTCAR_ITS ---
Diet Diet Order/Speech Therapy: 08/06/22 08:42 Diet: Regular - General Food consistency:: Mechanical (Minced/Moist) Liquid Consistency:: Regular/Thin Routine Orders/Code Status Code Status: [facility] Wound(s) Side of LT ankle: Wound Type: Abrasion Therapies Physical Therapy: Eval and Treat Occupational Therapy: Eval and Treat Speech Therapy: Eval and Treat Problem/Diagnosis (1) Urinary tract infection: Status: Resolved Code(s): N39.0 - Urinary tract infection, site not specified (2) Dementia with behavioral disturbance: Status: Acute Code(s): F03.918 - Unspecified dementia, unspecified severity, with other behavioral disturbance Plan Patient is an 81-year-old lady with history of acute on chronic subdural hematoma who was discharged from the rehab unit on 07/27/2022 to home with hospice brought back to the emergency department with agitation. Patient was found to have abnormal urinalysis consistent with cystitis 1. Dementia with behavioral agitation ? Possibly for stated by patient UTI discontinue with Remeron as well as Risperdal patient is on Namenda at home continue as well ? 08/09/2022. Patient cooperative. 08/10/2022; Patient seen resting comfortably. Per nursing staff she did behave very well during the night. Awaiting insurance precertification prior to transfer to longterm facility 3. Acute cystitis ? Patient is on Rocephin ? Urine cultures came back positive for staph epi Rocephin discontinued started on p.o. Doxy 3. 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 Supportive care 4. Hypertension - Blood pressure controlled, home medications continued with dose adjustment as needed 5. Physical deconditioning - Requested for PT OT eval and administrator social welfare to assist with discharge planning ? 08/09/2022 awaiting transfer to longterm facility pending insurance precertification 6. Diabetes mellitus type II -patient's oral hypoglycemics held. Placed on long acting insulin, Accu-Cheks a.c. and at bedtime and covered with sliding scale insulin 7. Parkinson's disease ? Patient is on Sinemet did continue 8. Hypothyroidism - Patient is on levothyroxine home dose continued 9. DVT prophylaxis ? SC enoxaparin Allergies/Procedures Done in Hospital Allergies No Known Allergies Allergy (Verified 11/07/22 20:54) Type of Care/Length of Stay Estimated LOS: Convalescent Care Less Than 30 days Type of Care Needed: Skilled Rehab Potential: Good Prognosis: Good Additional Orders/Day of Discharge Day of Discharge: 08/10/22 Dietary and Speech Recommendations Dietitian Recommendations/Changes: regular diet- mechanical soft (minced/moist); will monitor need for ONS as PO intake is established Discharge Plan Admission Admit Date/Time: 08/06/22 07:31 Attending Provider: Elías Barnett Primary Care Provider: Care Physician,No Primary Consulting Providers: Jenny Winters Discharge Orders/Prescriptions Prescriptions: New risperidone 1 mg Tablet 1 mg PO BID Qty: 0 0RF Continued acetaminophen 500 mg Tablet 1,000 mg PO Q8 PRN (Reason: fever/pain) Qty: 0 0RF amlodipine 10 mg Tablet 10 mg PO BREAKFAST Qty: 15 1RF bisacodyl 10 mg Suppository 10 mg NM .PRN X 1 PRN (Reason: Constipation) Qty: 0 0RF hydralazine 50 mg Tablet 50 mg PO TID Qty: 45 1RF insulin glargine-yfgn 100 unit/mL (3 mL) Insulin Pen 14 unit subcut QHS Qty: 6 0RF Rx Instructions: 14 units at bedtime insulin lispro [Humalog KwikPen Insulin] 100 unit/mL Insulin Pen 12 unit subcut TIDCM Qty: 12 0RF Rx Instructions: 12 units with each meal. levothyroxine 100 mcg Tablet 100 mcg PO DAILY@0600 Qty: 15 1RF sitagliptin phosphate 25 mg tablet 25 mg PO DAILY Qty: 15 1RF carbidopa-levodopa 25-100 mg Tablet 1 tab PO TIDAC Qty: 45 1RF metoprolol succinate 25 mg Tablet Extended Release 24 Hr 75 mg PO BID Qty: 30 1RF nystatin [Nyamyc] 100,000 unit/gram Powder 1 applic topical BID Qty: 0 0RF Protocol: *Topical Application Instructions APPLICATION INSTRUCTIONS: under bilat breasts, abdominal folds, and groin losartan 100 mg Tablet 100 mg PO DAILY Qty: 15 1RF memantine 5 mg Tablet 5 mg PO DAILY Qty: 15 1RF menthol-zinc oxide [Calmoseptine] 0.44-20.6 % Ointment 1 applic topical BID Qty: 0 0RF Protocol: *Topical Application Instructions APPLICATION INSTRUCTIONS: bilat buttocks and groin polyethylene glycol 3350 17 gram Powder In Packet 17 g PO DAILY Qty: 30 0RF sennosides-docusate sodium [Stool Softener-Stimulant Laxat] 8.6-50 mg Tablet 2 tab PO BID Qty: 60 1RF mirtazapine [Remeron] 15 mg tablet 15 mg PO QHS Qty: 15 1RF Discontinued oxycodone 5 mg Tablet 5 mg PO Q8H PRN PRN (Reason: Pain Score 5 or Greater) 7 Days Qty: 20 0RF quetiapine 25 mg Tablet See Rx Instructions .ROUTE .COMPLEX Qty: 75 1RF Rx Instructions: 12.5 mg (1 tab) orally at 0600 and 1400 and 37.5 mg (3 tabs) at 7 PM Referrals / Follow Up: Care Physician,No Primary [Primary Care Provider] - Disposition Disposition (needs filled in before D/C Order can be placed): Senior Living Facility
--- NOTE | 2022-08-10 14:15 | DS.PCM_ITS ---
Providers Date of Admission: 08/06/22 Date of Discharge: 08/10/22 Primary Care Physician: No Primary Care Phys Reason For Visit: UTI/COMPATIVNESS AND AGGRESSION Diagnosis Discharge Diagnosis (1) Urinary tract infection: Status: Resolved Code(s): N39.0 - Urinary tract infection, site not specified (2) Dementia with behavioral disturbance: Status: Acute Code(s): F03.918 - Unspecified dementia, unspecified severity, with other behavioral disturbance Plan Patient is an 81-year-old lady with history of acute on chronic subdural hematoma who was discharged from the rehab unit on 07/27/2022 to home with hospice brought back to the emergency department with agitation. Patient was found to have abnormal urinalysis consistent with cystitis 1. Dementia with behavioral agitation ? Possibly for stated by patient UTI discontinue with Remeron as well as Risperdal patient is on Namenda at home continue as well ? 08/09/2022. Patient cooperative. 08/10/2022; Patient seen resting comfortably. Per nursing staff she did behave very well during the night. Awaiting insurance precertification prior to transfer to retirement facility 3. Acute cystitis ? Patient is on Rocephin ? Urine cultures came back positive for staph epi Rocephin discontinued started on p.o. Doxy 3. 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 Supportive care 4. Hypertension - Blood pressure controlled, home medications continued with dose adjustment as needed 5. Physical deconditioning - Requested for PT OT eval and social sciences lecturer to assist with discharge planning ? 08/09/2022 awaiting transfer to retirement facility pending insurance precertification 6. Diabetes mellitus type II -patient's oral hypoglycemics held. Placed on long acting insulin, Accu-Cheks a.c. and at bedtime and covered with sliding scale insulin 7. Parkinson's disease ? Patient is on Sinemet did continue 8. Hypothyroidism - Patient is on levothyroxine home dose continued 9. DVT prophylaxis ? SC enoxaparin Medications at Discharge Home Medications acetaminophen 500 mg tablet 1,000 mg PO Q8 PRN fever/pain #0 tabs 07/27/22 amlodipine 10 mg tablet 10 mg PO BREAKFAST #15 tabs 07/27/22 bisacodyl 10 mg rectal suppository 10 mg ND .PRN X 1 PRN Constipation #0 ea 12/01/22 carbidopa 25 mg-levodopa 100 mg tablet 1 tab PO TIDAC #45 tabs 07/27/22 hydralazine 50 mg tablet 50 mg PO TID #45 tabs 07/27/22 insulin glargine-yfgn 100 unit/mL (3 mL) subcutaneous pen 14 unit (0.14 mL) subcut QHS #6 mL 07/27/22 insulin lispro 100 unit/mL subcutaneous pen (Humalog KwikPen (U-100) Insulin) 12 unit (0.12 mL) subcut TIDCM #12 mL 07/27/22 levothyroxine 100 mcg tablet 100 mcg PO DAILY@0600 #15 tabs 07/27/22 losartan 100 mg tablet 100 mg PO DAILY #15 tabs 07/27/22 memantine 5 mg tablet 5 mg PO DAILY #15 tabs 07/27/22 menthol 0.44 %-zinc oxide 20.6 % topical ointment (Calmoseptine) 1 applic topical BID #0 grams 07/27/22 metoprolol succinate 25 mg tablet,extended release 24 hr 75 mg PO BID #30 tabs 07/27/22 mirtazapine 15 mg tablet (Remeron) 15 mg PO QHS #15 tabs 07/27/22 nystatin 100,000 unit/gram topical powder (Nyamyc) 1 applic topical BID #0 grams 07/27/22 polyethylene glycol 3350 17 gram oral powder packet 17 g PO DAILY #30 ea 1 09/27/21 sennosides 8.6 mg-docusate sodium 50 mg tablet (Stool Softener-Stimulant Laxative) 2 tab PO BID #60 tabs 07/27/22 sitagliptin phosphate 25 mg tablet 25 mg PO DAILY #15 tabs 07/27/22 risperidone 1 mg tablet 1 mg PO BID #0 tabs 08/10/22 Hospital Course Summary of Care Provided Minutes Spent on Discharge: 45 Physical Exam Narrative GENERAL: Patient in no distress HEENT: Atraumatic; normocephalic EYES; Anicteric, Normal Conjunctiva NECK; supple, normal thyroid, RESPIRATORY: Diminished to auscultation CARDIOVASCULAR: Regular S1 S2, GI: soft, normoactive bowel sounds, : No Renal angle tenderness; EXTREMITIES: No edema, no clubbing, MUSCULOSKELETAL: no muscle wasting NEURO: Awake; no lateralizing signs. SKIN: No Rash PSYCH; Flat affect Weight / BMI Weight Weight: 69.5 kg Body Mass Index (BMI) 25.4 ABG / Lab / Microbiology Data Result Diagrams: 08/10/22 06:05 08/10/22 06:05 Laboratory: Laboratory Results - last 24 hr 08/09/22 21:20: POC Glucose 288 H 08/10/22 06:05: WBC 7.8, RBC 3.71 L, Hgb 10.5 L, Hct 34.1 L, MCV 91.9, MCH 28.3, MCHC 30.8 L, RDW Std Deviation 49.8 H, RDW Coeff of Darius 14.7 H, Plt Count 223, MPV 11.6, Immature Gran % (Auto) 0.800, Neut % (Auto) 61.3, Lymph % (Auto) 25.5, [place] % (Auto) 11.1 H, Eos % (Auto) 0.9, Baso % (Auto) 0.4, Absolute Neuts (auto) 4.8, Absolute Lymphs (auto) 2.00, Nucleated RBC % 0 08/10/22 06:05: Sodium 140, Potassium 4.1, Chloride 106, Carbon Dioxide 28.0, Anion Gap 6, BUN 23 H, Creatinine 0.97, Estim Creat Clear Calc 40.93, Est GFR (MDRD) Af Amer 71, Est GFR (MDRD) Non-Af 58 L, BUN/Creatinine Ratio 23.6 H, Glucose 225 H, Calcium 8.9 08/10/22 08:15: POC Glucose 255 H 08/10/22 11:03: POC Glucose 206 H Microbiology: Microbiology 08/06/22 05:14 Urine, Catheterized Urine Culture - Final Staphylococcus epidermidis 08/06/22 05:00 Nasal Secretion SARS-CoV-2 Antigen (Rapid) - Final Meaningful Use Info Meaningful Use Diagnoses (Choose all that apply): None applicable Discharge Plan Admission Admit Date/Time: 08/06/22 07:31 Attending Provider: Elías Barnett Primary Care Provider: Care Physician,No Primary Consulting Providers: Jenny Winters Discharge Orders/Prescriptions Prescriptions: New risperidone 1 mg Tablet 1 mg PO BID Qty: 0 0RF Continued acetaminophen 500 mg Tablet 1,000 mg PO Q8 PRN (Reason: fever/pain) Qty: 0 0RF amlodipine 10 mg Tablet 10 mg PO BREAKFAST Qty: 15 1RF bisacodyl 10 mg Suppository 10 mg ND .PRN X 1 PRN (Reason: Constipation) Qty: 0 0RF hydralazine 50 mg Tablet 50 mg PO TID Qty: 45 1RF insulin glargine-yfgn 100 unit/mL (3 mL) Insulin Pen 14 unit subcut QHS Qty: 6 0RF Rx Instructions: 14 units at bedtime insulin lispro [Humalog KwikPen Insulin] 100 unit/mL Insulin Pen 12 unit subcut TIDCM Qty: 12 0RF Rx Instructions: 12 units with each meal. levothyroxine 100 mcg Tablet 100 mcg PO DAILY@0600 Qty: 15 1RF sitagliptin phosphate 25 mg tablet 25 mg PO DAILY Qty: 15 1RF carbidopa-levodopa 25-100 mg Tablet 1 tab PO TIDAC Qty: 45 1RF metoprolol succinate 25 mg Tablet Extended Release 24 Hr 75 mg PO BID Qty: 30 1RF nystatin [Nyamyc] 100,000 unit/gram Powder 1 applic topical BID Qty: 0 0RF Protocol: *Topical Application Instructions APPLICATION INSTRUCTIONS: under bilat breasts, abdominal folds, and groin losartan 100 mg Tablet 100 mg PO DAILY Qty: 15 1RF memantine 5 mg Tablet 5 mg PO DAILY Qty: 15 1RF menthol-zinc oxide [Calmoseptine] 0.44-20.6 % Ointment 1 applic topical BID Qty: 0 0RF Protocol: *Topical Application Instructions APPLICATION INSTRUCTIONS: bilat buttocks and groin polyethylene glycol 3350 17 gram Powder In Packet 17 g PO DAILY Qty: 30 0RF sennosides-docusate sodium [Stool Softener-Stimulant Laxat] 8.6-50 mg Tablet 2 tab PO BID Qty: 60 1RF mirtazapine [Remeron] 15 mg tablet 15 mg PO QHS Qty: 15 1RF Discontinued oxycodone 5 mg Tablet 5 mg PO Q8H PRN PRN (Reason: Pain Score 5 or Greater) 7 Days Qty: 20 0RF quetiapine 25 mg Tablet See Rx Instructions .ROUTE .COMPLEX Qty: 75 1RF Rx Instructions: 12.5 mg (1 tab) orally at 0600 and 1400 and 37.5 mg (3 tabs) at 7 PM Referrals / Follow Up: Care Physician,No Primary [Primary Care Provider] - Disposition Disposition (needs filled in before D/C Order can be placed): Detention Facility Charges/Coding Visit Charges Inpatient E&M: 06689 Disch Hosp
--- NOTE | 2022-08-10 16:09 | CASEMGMT ---
Addendum entered by Josie Álvarez 08/10/22 16:42: SW called [facility] multiple times with no answer. Discharge time sent to facility via [facility]. ARABELLA Roberts Original Note: Social Work Precert has been obtained for pt to go to [facility] today. Per physician, pt is ready for discharge today. Transportation arranged with [facility] for 6:30 [employer] via [employer] [id number] convalescent form completed in [facility] and sent along with discharge orders to [facility]. Phone call to [facility] and updated on discharge time. Phone call to pt son Ruddy and updated on discharge plan. Nursing made aware. Disposition: [facility], skilled level of care under convalescent stay ARABELLA Roberts
[2022-08-10 16:26] LABS: Bedside Glucose 129 mg/dL (74-106)
== END 2022-08-10 19:06 | disposition skilled nursing facility (03) | DRG 689 ==
LOC: ED 07:31 → MS3 08:05
PROVIDERS: Admitting Provider Internal Medicine; Emergency Provider Emergency Medicine; Visit Provider Internal Medicine
DX: N30.00 Acute cystitis without hematuria (principal); I62.03 Nontraumatic chronic subdural hemorrhage; F03.918 Unspecified dementia, unspecified severity, with other behavioral disturbance; Z79.4 Long term (current) use of insulin; E11.9 Type 2 diabetes mellitus without complications; G20 Parkinson's disease; E03.9 Hypothyroidism, unspecified; I10 Essential (primary) hypertension; R53.81 Other malaise; Z79.01 Long term (current) use of anticoagulants; Z66 Do not resuscitate; Z51.5 Encounter for palliative care
CPT/HCPCS: 36415; 80048; 80307; 81001; 82077; 82962; 83735; 84100; 85025; 87077; 87086; 87088; 87186; 87811; 93005; 97110; 97162; 97166; 97530; 97535; 97802; 99285; A4216